=== PATIENT | male | born 1955 | race Caucasian/White ===

== ENCOUNTER 2016-12-12 15:11 | Observation (INO) | payer OTHER ==
[~2016-12-12] VITALS: Ht 175.3 cm; Wt 75.0 kg
[2016-12-12] VITALS (11 sets, daily range): BP systolic 165–212; BP diastolic 86–133; PULSE 55–94; RESP 16–22; TEMP 97.8–98.8; O2SAT 95–100
[~2016-12-12 15:11] MED LIST: CIPR500T4 PO; LISI-363 PO; LISI-587 PO; METO50TA PO
[2016-12-12] MEDS ORDERED: SODIUM CHLORIDE 0.9% FLUSH 10 ML FLUSH IVF PRN (15:30)
[2016-12-12] MEDS ORDERED: ASPIRIN 325 MG TAB PO ONE (15:30)
--- NOTE | 2016-12-12 15:35 | PD ---
HPI Chief Complaint: Chest Pain Time Seen by Provider: 15:19 Travel History International Travel<30 days: No Contact w/Intl Traveler<30days: No Traveled to known affect area: No History of Present Illness HPI This patient reports that he has chest pain. He called 911 and is brought in by paramedics. He is a local homeless alcoholic. He complains of chest pain. Severity is moderate. Duration 2 days. Some left-sided pain but primarily complaining of right sided discomfort. It is nonexertional. He denies any drug use. No alleviating factors. He denies prior cardiac history PFSH Past Medical History Arthritis: Yes Blood Disorders: No Anxiety: Yes Depression: Yes Cancer: No Cardiovascular Problems: Yes (HTN) Diminished Hearing: No Endocrine: No Gastrointestinal Disorders: No GERD: Yes Genitourinary: No Hepatitis: Yes (HEP C) Hypertension: Yes Immune Disorder: No Musculoskeletal: Yes (arthritis) Neurologic: Yes (dizziness) Psychiatric: No Reproductive: No Respiratory: No Immunizations Current: Yes Seizures: Yes Tetanus Vaccination: > 5 Years Influenza Vaccination: No Past Surgical History Body Medical Devices: titanium in body Joint Replacement: Yes (left hip replacement, left arm fusion,) Other Surgery: Yes (TITANIUM HIPS,BACK, ANKLES) Social History Alcohol Use: Yes (STATES OCCASIONALLY) Tobacco Use: Yes (1/2 ppd ) Substance Use: No Allergies-Medications (Allergen,Severity, Reaction): Coded Allergies: Codeine (Verified Allergy, Severe, Swelling, 12/12/16) Keflex (Verified Allergy, Severe, SWELLING/RASH, 12/12/16) *MDRO Multi-Drug Resistant Organism (Verified Adverse Reaction, Unknown, ) ESBL+E.Coli (urine-10/2015) Reported Meds & Prescriptions Reported Meds & Active Scripts Active No Active Prescriptions or Reported Medications Review of Systems General / Constitutional: No: Fever Eyes: No: Visual changes HENT: No: Headaches Cardiovascular: Positive: Chest Pain or Discomfort Respiratory: No: Shortness of Breath Gastrointestinal: No: Abdominal Pain Genitourinary: No: Dysuria Musculoskeletal: No: Pain Skin: No Rash Neurologic: No: Weakness Psychiatric: Positive: Substance Abuse, No: Depression Endocrine: No: Polydipsia Hematologic/Lymphatic: No: Easy Bruising Physical Exam Narrative GENERAL: Disheveled well-developed patient in no apparent distress. SKIN: Focused skin assessment reveals no rash and nodules. Skin is Warm and dry. HEAD: Atraumatic. Normocephalic. EYES: Pupils equal and round. No scleral icterus. No injection or drainage. ENT: No nasal bleeding or discharge. Mucous membranes pink and moist. NECK: Trachea midline. No JVD. CARDIOVASCULAR: Regular rate and rhythm. No murmur appreciated. RESPIRATORY: No accessory muscle use. Clear to auscultation. Breath sounds equal bilaterally. GASTROINTESTINAL: Abdomen soft, non-tender, nondistended. Hepatic and splenic margins not palpable. MUSCULOSKELETAL: No obvious deformities. No clubbing. No cyanosis. No edema. NEUROLOGICAL: Awake and alert. No obvious cranial nerve deficits. Motor grossly within normal limits. Normal speech. PSYCHIATRIC: Appropriate mood and affect; insight and judgment poor. Data Data Last Documented VS Vital Signs Date Time Temp Pulse Resp B/P Pulse Ox O2 Delivery O2 Flow Rate FiO2 12/12/16 16:39 65 20 189/118 95 Room Air 12/12/16 15:20 98.3 Orders Electrocardiogram (12/12/16:) Basic Metabolic Panel (Bmp) (12/12/16 15:) Ckmb (Isoenzyme) Profile (12/12/16 15:28) Complete Blood Count With Diff (12/12/16:) Magnesium (Mg) (12/12/16:) Prothrombin Time / Inr (Pt) (12/12/16 15:28) Act Partial Throm Time (Ptt) (12/12/16 15:28) Troponin I (12/12/16:) Chest, Single Ap (12/12/16:) Ecg Monitoring (12/12/16:) Iv Access Insert/Monitor (12/12/16:) Oximetry (12/12/16:28) Aspirin (Aspirin) (12/12/16 15:30) Sodium Chloride 0.9% Flush (Ns Flush) (12/12/16:) Alcohol (Ethanol) (12/12/16 15:28) CKMB (12/12/16 15:30) CKMB% (12/12/16 15:30) Labs Laboratory Tests Test 12/12/16: White Blood Count 7.2 TH/MM3 Red Blood Count 4.71 MIL/MM3 Hemoglobin 12.4 GM/DL Hematocrit 37.4 % Mean Corpuscular Volume 79.4 FL Mean Corpuscular Hemoglobin 26.3 PG Mean Corpuscular Hemoglobin 33.1 % Concent Red Cell Distribution Width 14.1 % Platelet Count 176 TH/MM3 Mean Platelet Volume 8.6 FL Neutrophils (%) (Auto) 51.3 % Lymphocytes (%) (Auto) 35.8 % Monocytes (%) (Auto) 8.7 % Eosinophils (%) (Auto) 2.6 % Basophils (%) (Auto) 1.6 % Neutrophils # (Auto) 3.7 TH/MM3 Lymphocytes # (Auto) 2.6 TH/MM3 Monocytes # (Auto) 0.6 TH/MM3 Eosinophils # (Auto) 0.2 TH/MM3 Basophils # (Auto) 0.1 TH/MM3 CBC Comment DIFF FINAL Differential Comment Prothrombin Time 11.1 SEC Prothromb Time International 1.0 RATIO Ratio Activated Partial 26.6 SEC Thromboplast Time Sodium Level 141 MEQ/L Potassium Level 4.0 MEQ/L Chloride Level 108 MEQ/L Carbon Dioxide Level 26.3 MEQ/L Anion Gap 7 MEQ/L Blood Urea Nitrogen 23 MG/DL Creatinine 1.94 MG/DL Estimat Glomerular Filtration 35 ML/MIN Rate Random Glucose 80 MG/DL Calcium Level 8.7 MG/DL Magnesium Level 1.8 MG/DL Total Creatine Kinase 135 U/L Creatine Kinase MB 5.6 NG/ML Troponin I 0.05 NG/ML Ethyl Alcohol Level LESS THAN 3 MG/DL MDM Medical Decision Making Medical Screen Exam Complete: Yes Emergency Medical Condition: Yes Medical Record Reviewed: Yes Differential Diagnosis Differential diagnosis includes VT, angina, pericarditis, pleurisy, GERD, anxiety. Narrative Course I have reviewed the patient's electronic medical record. Has been here multiple times for alcohol-related issues and multiple times for malingering IV placed I reviewed the EKG which shows sinus rhythm but no ST elevation I reviewed the chest x-ray which shows nothing emergent Extended cardiac monitoring shows sinus rhythm without ectopy CBC is normal Metabolic profile is normal CK is negative Troponin is negative Coagulation studies are normal Alcohol level is negative I gave him an aspirin Patient has hypertension as a risk factor. He has atypical pain. I have made him a 23 hour observation in the chest pain center. He is not intoxicated. He is calm and cooperative. He is not in withdrawal. Diagnosis Primary Impression: Chest pain in adult Additional Impression: Alcoholism Admitting Information Admitting Physician Requests: Observation Scripts No Active Prescriptions or Reported Meds Foster Haas MD Dec 12, 2016 15:35
[2016-12-12 15:52] LABS: AUTOMATED NEUTROPHIL # 3.7 TH/MM3 (1.8-7.7); BASOPHIL # 0.1 TH/MM3 (0-0.2); BASOPHIL % 1.6 % (0.0-2.0); EOSINOPHIL # 0.2 TH/MM3 (0-0.4); EOSINOPHIL % 2.6 % (0.0-4.0); HEMATOCRIT 37.4 % (39.0-51.0); HEMO FLAGS DIFF FINAL; LYMPH % 35.8 % (9.0-44.0); LYMPHOCYTE # 2.6 TH/MM3 (1.0-4.8); MEAN CELL VOLUME 79.4 FL (80.0-100.0); MEAN CORPUSCULAR HEMOGLOBIN 26.3 PG (27.0-34.0); MEAN CORPUSCULAR HGB CONC 33.1 % (32.0-36.0); MONO % 8.7 % (0.0-8.0); NEUT % 51.3 % (16.0-70.0); PLATELET COUNT 176 TH/MM3 (150-450); RED BLOOD COUNT 4.71 MIL/MM3 (4.50-5.90); RED CELL DISTRIBUTION WIDTH 14.1 % (11.6-17.2); WHITE BLOOD COUNT 7.2 TH/MM3 (4.0-11.0)
[2016-12-12 16:12] LABS: APTT (PATIENT) 26.6 SEC (24.3-30.1); PROTHROMBIN TIME - PATIENT 11.1 SEC (9.8-11.6)
[2016-12-12 16:27] LABS: ANION GAP 7 MEQ/L (5-15); BICARBONATE 26.3 MEQ/L (21.0-32.0); BLOOD UREA NITROGEN 23 MG/DL (7-18); CHLORIDE 108 MEQ/L (98-107); CREATINE KINASE 135 U/L (39-308); GLOMERULAR FILTRATION RATE 35 ML/MIN (>89); MAGNESIUM 1.8 MG/DL (1.5-2.5); SODIUM (NA) 141 MEQ/L (136-145)
--- NOTE | 2016-12-12 16:29 | RADRPT ---
EXAM DATE/TIME: 12/12/2016 15:51 [facility] COMPARISON: CHEST SINGLE AP, July 18, 2015, 0:29. INDICATIONS : Chest pain. MEDICAL HISTORY : Cardiovascular disease. Hypertension. Seizures.Hep C SURGICAL HISTORY : Total knee replacement, left. Craniotomy. Left clavicle. ENCOUNTER: Initial ACUITY: 1 day PAIN SCORE: 3/10 LOCATION: Bilateral chest FINDINGS: A single portable frontal view the chest shows mild cardiomegaly. Lungs are clear. No effusions. A de generative thoracic spine. Orthopedic plate involving left clavicle. CONCLUSION: No acute cardiopulmonary disease. Dayne Calle Jr., MD on December 12, 2016 at 16:26 Board Certified Radiologist. This report was verified electronically.
[2016-12-12 16:40] LABS: CKMB 5.6 NG/ML (0.5-3.6)
[2016-12-12] MEDS ORDERED: cloNIDine HCL 0.1 MG TAB PO PRN (18:15)
[2016-12-12] MEDS ORDERED: ACETAMINOPHEN 500 MG CPLT PO PRN (18:15)
[2016-12-12] MEDS ORDERED: NITROGLYCERIN 0.4 MG SL 25 TABS/BTL SL PRN (18:15)
[2016-12-12] MEDS ORDERED: ONDANSETRON HCL 4 MG/2 ML VIAL IV PRN (18:15)
[2016-12-12] MEDS ORDERED: cloNIDine HCL 0.2 MG TAB PO ONE (18:15)
--- NOTE | 2016-12-12 18:47 | HHI.HP ---
HPI Primary Care Physician Tonny Shook MD Chief Complaint Chest pain History of Present Illness 61-year-old male with known hypertension presents to emergency room for further evaluation chest pain. Onset 2 days ago. Location right anterior chest. Characterized as a sharp pain. Pain has been constant. Reports severe pain today rated 8/10 therefore he called 911. Radiation of pain to his epigastric area occasionally. No associated symptoms of nausea, vomiting, diaphoresis, or shortness of breath. Deep breathing did not make pain better or worse. Endorses movement makes pain worse. No particular movement makes pain better. No known precipitating factors, reports he was tying his shoe when pain began. Relieving factors nitroglycerin given in the emergency room now rates pain at a 2/10. Pain never went completely away. Denies similar pain in the past. Of note, patient was angry throughout interview, difficult to obtain full medical history, and frequently answered "I don't know." Review of Systems General: No fatigue,weakness, fever, chills,, or recent illness. Reports he has been in his general state of health up until 2 days ago. HEENT: Occasional headache. No vision changes or dysphasia CV: As stated above. Currently has right anterior chest pain characterized as sharp without radiation or associated symptoms, rated 2/10. No palpitations, intermittent leg pain, or dizziness RESP: No SOB, cough, hemoptysis GI: No nausea, vomiting, bowel changes, pain, distention, melena, or blood in the stool. : No dysuria, urgency, frequency, or hematuria EXT: No lower leg edema, no paraesthesias MS: No discomfort or change in ROM, ambulates independently, reports history of being in a "full body cast after falling off a roof." NEURO: No difficulty with balance, LOC, motor/sensory deficits PSYCH: No anxiety, depression, or suicidal ideation SKIN: No rashes, no concerning lesions Past Family Social History Allergies: Coded Allergies: Codeine (Verified Allergy, Severe, Swelling, 12/12/16) Keflex (Verified Allergy, Severe, SWELLING/RASH, 12/12/16) *MDRO Multi-Drug Resistant Organism (Verified Adverse Reaction, Unknown, ) ESBL+E.Coli (urine-10/2015) Past Medical History Hypertension, alcoholism, noncompliance Past Surgical History Right hip replacement Reported Medications Active No Active Prescriptions or Reported Medications BP medicationname unknown, states he ran out many months ago. Active Ordered Medications Current Medications Medications (Trade) Dose Ordered Sig/Artemio Route Start Time Stop Time Status Last Admin (NS Flush) 2 ml UNSCH PRN IVF 12/12/16 15:30 (NS Flush) 2 ml BID IV FLUSH 12/12/16 21:00 UNV (Tylenol) 500 mg Q4H PRN PO 12/12/16 18:15 UNV (Zofran Inj) 4 mg Q6H PRN IV 12/12/16 18:15 UNV (Nitrostat Sl) 0.4 mg Q5M PRN SL 12/12/16 18:15 UNV (Aspirin) 325 mg DAILY PO 12/13/16 09:00 UNV (Norvasc) 5 mg DAILY PO 12/12/16 18:30 UNV (Catapres) 0.1 mg Q6H PRN PO 12/12/16 18:15 UNV Family History Noncontributory for early as a cardiovascular disease. Social History No known diabetes, coronary artery disease, or hyperlipidemia. Endorses hypertension. Current smoker one quarter pack/daily. Denies any recreational drug use. Reports a few beers occasionally/weekly. Upon admission to hospital he was holding a half full Wiliam Duncan bottle. When questioned patient reports not drinking that often only carries it around. Homeless. Past cardiac testing Reports never having testing. Physical Exam Vital Signs Vital Signs Date Time Temp Pulse Resp B/P Pulse Ox O2 Delivery O2 Flow Rate FiO2 12/12/16 18:17 98 21 12/12/16 16:39 65 20 189/118 95 Room Air 12/12/16 15:20 98.3 82 20 208/122 97 Physical Exam GENERAL: Alert WD, NAD, thin, disheveled, dirty, male who appears older than stated age HEAD: NC, AT NECK: Supple, no masses, trachea midline, no JVD, carotid bruits L>R CV: RRR, systolic 2/6 murmur. no rub or gallop, no S3-S4. RESP: Diminished lungs throughout bilateral, no crackles, wheeze, rhonchi, symmetrical chest rise, nonlabored, able to speak in full sentences, prolonged expiratory phase ABD: Soft, NT, ND, no masses, positive bowel tones, flat EXT: Pulses +14, no dependent edema, thick dirty fingernails and toenails MS: Normal tone 4 extremities, no obvious deformities, full range of motion, right anterior chest wall tender upon palpation NEURO: CN II through CN XII grossly intact, motor strength 5/5 PSYCH: A+O 3, agitated, hostile, rude, appropriate speech, appropriate insight and judgment SKIN: Normal turgor, normal texture, no lesions, no rashes, tattoo, solar damage , dirty Laboratory Laboratory Tests Test 12/12/16 15:30 White Blood Count 7.2 Red Blood Count 4.71 Hemoglobin 12.4 Hematocrit 37.4 Mean Corpuscular Volume 79.4 Mean Corpuscular Hemoglobin 26.3 Mean Corpuscular Hemoglobin 33.1 Concent Red Cell Distribution Width 14.1 Platelet Count 176 Mean Platelet Volume 8.6 Neutrophils (%) (Auto) 51.3 Lymphocytes (%) (Auto) 35.8 Monocytes (%) (Auto) 8.7 Eosinophils (%) (Auto) 2.6 Basophils (%) (Auto) 1.6 Neutrophils # (Auto) 3.7 Lymphocytes # (Auto) 2.6 Monocytes # (Auto) 0.6 Eosinophils # (Auto) 0.2 Basophils # (Auto) 0.1 CBC Comment DIFF FINAL Differential Comment Prothrombin Time 11.1 Prothromb Time International 1.0 Ratio Activated Partial 26.6 Thromboplast Time Sodium Level 141 Potassium Level 4.0 Chloride Level 108 Carbon Dioxide Level 26.3 Anion Gap 7 Blood Urea Nitrogen 23 Creatinine 1.94 Estimat Glomerular Filtration 35 Rate Random Glucose 80 Calcium Level 8.7 Magnesium Level 1.8 Total Creatine Kinase 135 Creatine Kinase MB 5.6 Troponin I 0.05 Ethyl Alcohol Level LESS THAN 3 Result Diagram: 12/12/16 1530 12/12/16 1530 Imaging Last Impressions Chest X-Ray 12/12/16 1528 Signed Impressions: Service Date/Time: November 15:51 - CONCLUSION: No acute cardiopulmonary disease. Dayne Calle Jr., MD Course EKG Normal sinus rhythm, no ST or T-segment changes Assessment and Plan Assessment and Plan #1 Atypical chest painadmitted to chest pain center. Rule out with 3 sets of EKGs, cardiac enzymes, and monitored overnight. Will be seen and evaluated by Dr. Thomas Farmer. Discussed with patient most likely will complete cardiac stress testing in a.m. Patient is agreeable to plan of care. #2 Hypertensionamlodipine 5 mg daily first dose now. Clonidine 0.1 mg every 6 hours when necessary for systolic greater than 180 and diastolic greater than 110. Encouraged him to keep all follow-up appointments with PCP and take medication as prescribed. #3 Tobacco usestrongly encouraged and stressed the importance of tobacco sensation. Discussed and counseled patient to quit smoking. #4 Alcohol useno signs of DTs, alcohol level negative. Encouraged him to quit drinking alcohol. #5 Renal insufficiencyafter reviewing records appears stable, creatinine as high as 4.21 in the past. Follow-up with PCP as previously instructed. Nicole Krishnamurthy Dec 12, 2016 18:47
[2016-12-12] MEDS: amLODIPine BESYLATE 5 MG TAB PO SCH (18:56)
[2016-12-12 19:05] LABS: CREATINE KINASE 136 U/L (39-308)
[2016-12-12 19:29] LABS: CKMB 4.8 NG/ML (0.5-3.6)
[2016-12-12] MEDS: SODIUM CHLORIDE 0.9% FLUSH 10 ML FLUSH IV FLUSH SCH (21:00)
[2016-12-13 00:34] VITALS: PULSE 64
[2016-12-13 04:03] VITALS: PULSE 52
[2016-12-13 04:08] VITALS: BP 162/91; PULSE 77; RESP 18; TEMP 98.1; O2SAT 97
[2016-12-13 07:45] VITALS: BP 179/105; PULSE 65; RESP 18; TEMP 97.6; O2SAT 99
[2016-12-13] MEDS: SODIUM CHLORIDE 0.9% FLUSH 10 ML FLUSH IV FLUSH SCH (07:57)
[2016-12-13] MEDS: amLODIPine BESYLATE 5 MG TAB PO SCH (07:57)
[2016-12-13] MEDS ORDERED: RESP: ALBUTEROL 2.5 MG/IPRATROPIUM 0.5 MG NEB (PRN) INH (08:15)
[2016-12-13 08:19] VITALS: PULSE 48
[2016-12-13] MEDS ORDERED: ASPIRIN 325 MG TAB PO SCH (09:00)
[2016-12-13] MEDS ORDERED: REGADENOSON INJ 0.4 MG/5 ML SYR ONE (10:59)
--- NOTE | 2016-12-13 13:35 | RADRPT ---
EXAM DATE/TIME: 12/13/2016 10:33 [facility] COMPARISON: No previous studies available for comparison. INDICATIONS : Right sided chest pain for two days. Angina. DOSE: 26 mCi Tc99m Myoview at stress. 8.7 mCi Tc99m Myoview at rest. 0.4 mg Lexiscan STRESS SYMPTOMS: Dizziness and headache. EJECTION FRACTION: 65% MEDICAL HISTORY : Hypertension. SURGICAL HISTORY : Right hip replacement. ENCOUNTER: Initial ACUITY: 2 days PAIN SCALE: 8/10 LOCATION: Right chest TECHNIQUE: The patient underwent pharmacologic stress with infusion of prescribed dose. Continuous ECG tracing was monitored during stress. Gated SPECT imaging was performed after stress and conventional SPECT i maging was performed at rest. The examination was performed on a SPECT/CT scanner, both attenuation and non-corrected datasets were reviewed. FINDINGS: DISTRIBUTION: The maximum perfused segment at stress is in the lateral wall. PERFUSION STUDY: The pattern of perfusion at stress is within normal limits. GATED STUDY: There is intact wall motion and thickening without hypokinetic or dyskinetic segments. CONCLUSION: No reversible defects observed to suggest acute ischemia. RISK CATEGORY: Low Dayne Calle Jr., MD on December 13, 2016 at 13:31 Board Certified Radiologist. This report was verified electronically.
[2016-12-13] MEDS ORDERED: AMLO5 PO (13:39)
--- NOTE | 2016-12-13 13:40 | HHI.DCPOC ---
Discharge Care Plan Diagnosis: (1) Chest pain (2) HTN (hypertension) (3) Tobacco abuse Goals to Promote Your Health * To prevent worsening of your condition and complications * To maintain your health at the optimal level Directions to Meet Your Goals Take your medications as prescribed Follow your dietary instruction Follow activity as directed Keep your appointments as scheduled Take your immunizations and boosters as scheduled If your symptoms worsen call your PCP, if no PCP go to Urgent Care Center or Emergency Room Smoking is Dangerous to Your Health. Avoid second hand smoke Call the 24-hour hour crisis hotline for domestic abuse at Scotty Florentino Dec 13, 2016 13:39
--- NOTE | 2016-12-13 15:36 | EKG ---
Date Performed: 12/12/2016 Time Performed: 22:16:16 PTAGE: 61 years EKG: SINUS BRADYCARDIA LEFT VENTRICULAR HYPERTROPHY AND ST-T CHANGE ABNORMAL ECG PREVIOUS TRACING : 12/12/2016 18.16 Since previous tracing, no significant change noted DOCTOR: Thomas Farmer Interpretating Date/Time 12/13/2016 15:36:19
--- NOTE | 2016-12-13 15:37 | EKG ---
Date Performed: 12/12/2016 Time Performed: 15:24:10 PTAGE: 61 years EKG: Sinus rhythm WITH FREQUENT SUPRAVENTRICULAR PREMATURE COMPLEXES VOLTAGE CRITERIA FOR LVH ABNORMAL ECG PREVIOUS TRACING : 07/17/2015 23.42 Since previous tracing, no significant change noted DOCTOR: Thomas Farmer Interpretating Date/Time 12/13/2016 15:37:20
--- NOTE | 2016-12-13 15:37 | EKG ---
Date Performed: 12/12/2016 Time Performed: 18:16:07 PTAGE: 61 years EKG: Sinus rhythm VOLTAGE CRITERIA FOR LVH ABNORMAL ECG PREVIOUS TRACING : 12/12/2016 15.24 Since previous tracing, no significant change noted DOCTOR: Thomas Farmer Interpretating Date/Time 12/13/2016 15:36:57
--- NOTE | 2016-12-13 15:43 | TR ---
Date Performed: 12/13/2016 Time Performed: 11:13:25 DOCTOR: Thomas Farmer DRUG LIST: CLINICAL HISTORY: REASON FOR TEST: CHEST PAIN REASON FOR ENDING: OBSERVATION: CONCLUSION: Lexiscan stress test was performed under standard four minute protocol. Radionuclid e was injected one minute prior to ending the test. No electrocardiographic abormalities were present to suggest ischemia. Nuclear imaging and interpretation are pending. COMMENTS:
== END 2016-12-13 15:05 | disposition home or self-care (01) ==
LOC: NEPC 15:11 → NEDA 17:52 → NEPFCDU 20:29
PROVIDERS: ADMIT Internal Medicine Cardiovascular Disease; ATTEND Internal Medicine Cardiovascular Disease
DX: R07.89 Other chest pain (principal); R42 Dizziness and giddiness; R51 Headache; R94.31 Abnormal electrocardiogram [ECG] [EKG]; R00.1 Bradycardia, unspecified; N28.9 Disorder of kidney and ureter, unspecified; I20.9 Angina pectoris, unspecified; I11.9 Hypertensive heart disease without heart failure; I51.7 Cardiomegaly; K21.9 Gastro-esophageal reflux disease without esophagitis; B19.20 Unspecified viral hepatitis C without hepatic coma; F41.9 Anxiety disorder, unspecified; F32.9 Major depressive disorder, single episode, unspecified; M19.90 Unspecified osteoarthritis, unspecified site; F17.200 Nicotine dependence, unspecified, uncomplicated; F10.20 Alcohol dependence, uncomplicated; Z96.652 Presence of left artificial knee joint; Z96.641 Presence of right artificial hip joint; Z59.0 Homelessness; Z91.19 Patient's noncompliance with other medical treatment and regimen
CPT/HCPCS: 71010; 78452; 80048; 80307; 82550; 82552; 83735; 84484; 85025; 85610; 85730; 93005; 93017; 99285; A9502; G0378; J2785

== ENCOUNTER 2017-02-05 20:42 | Emergency (ER) | payer OTHER ==
[~2017-02-05] VITALS: Ht 175.3 cm; Wt 78.0 kg
[~2017-02-05 20:42] MED LIST changes: +AMLO5 PO; -CIPR500T4 PO; -LISI-363 PO; -LISI-587 PO; -METO50TA PO
[2017-02-05 20:50] VITALS: BP 203/103; PULSE 110; RESP 20; TEMP 98.7; O2SAT 95
[2017-02-05 21:04] VITALS: BP 173/106; PULSE 101; O2SAT 96
[2017-02-05 21:10] VITALS: BP 173/106
[2017-02-05 22:12] VITALS: BP 218/124; PULSE 93; RESP 20; O2SAT 99
--- NOTE | 2017-02-05 22:21 | PD ---
HPI Chief Complaint: Alcohol/Drug Intoxication Time Seen by Provider: 22:14 Travel History International Travel<30 days: No Contact w/Intl Traveler<30days: No Traveled to known affect area: No History of Present Illness HPI 61-year-old male brought to the emergency department under a Edouard act for psychiatric evaluation. Patient has been drinking alcohol and is feeling depressed. He has not been taking his antidepressant medication. He has been having thoughts of suicide. Denies any current plan. He has no other symptoms to report. PFSH Past Medical History Arthritis: Yes Blood Disorders: No Anxiety: Yes Depression: Yes Cancer: No Cardiovascular Problems: Yes (HTN) Diabetes: No Patient Takes Glucophage: No Diminished Hearing: No Endocrine: No Gastrointestinal Disorders: No GERD: Yes Genitourinary: No Hepatitis: Yes (HEP C) Hypertension: Yes Immune Disorder: No Musculoskeletal: Yes (arthritis) Neurologic: Yes (dizziness) Psychiatric: No Reproductive: No Respiratory: No Immunizations Current: Yes Seizures: Yes Tetanus Vaccination: > 5 Years Influenza Vaccination: No Past Surgical History Body Medical Devices: titanium in body Joint Replacement: Yes (left hip replacement, left arm fusion,) Other Surgery: Yes (TITANIUM HIPS,BACK, ANKLES) Social History Alcohol Use: Yes (DAILY) Tobacco Use: Yes (1/2 ppd ) Substance Use: No Allergies-Medications (Allergen,Severity, Reaction): Coded Allergies: cephalexin (Unverified Allergy, Severe, SWELLING/RASH, 02/05/17) codeine (Unverified Allergy, Severe, Swelling, 02/05/17) *MDRO Multi-Drug Resistant Organism (Verified Adverse Reaction, Unknown, ) ESBL+E.Coli (urine-10/2015) Reported Meds & Prescriptions Reported Meds & Active Scripts Active No Active Prescriptions or Reported Medications Review of Systems Except as stated in HPI: all other systems reviewed are Neg Physical Exam Narrative GENERAL: Well-nourished, unkempt male patient, in no acute distress. SKIN: Focused skin assessment warm/dry. HEAD: Atraumatic. Normocephalic. EYES: Pupils equal and round. No scleral icterus. No injection or drainage. ENT: No nasal bleeding or discharge. Mucous membranes pink and moist. NECK: Trachea midline. No JVD. CARDIOVASCULAR: Tachycardic rate and rhythm. No murmur appreciated. RESPIRATORY: No accessory muscle use. Clear to auscultation. Breath sounds equal bilaterally. GASTROINTESTINAL: Abdomen soft, non-tender, nondistended. Hepatic and splenic margins not palpable. MUSCULOSKELETAL: No obvious deformities. No clubbing. No cyanosis. No edema. NEUROLOGICAL: Awake and alert. No obvious cranial nerve deficits. Motor grossly within normal limits. Normal speech. Data Data Last Documented VS Vital Signs Date Time Temp Pulse Resp B/P (MAP) Pulse Ox O2 Delivery O2 Flow Rate FiO2 02/06/17 03:16 88 18 205/98 (133) 99 Room Air 02/05/17 20:50 98.7 Orders Orders Complete Blood Count With Diff (02/05/17 21:17) Basic Metabolic Panel (Bmp) (02/05/17 21:17) Psych Screen (02/05/17 21:17) Drug Screen, Random Urine (02/05/17 21:17) Alcohol (Ethanol) (02/05/17 21:17) Clonidine (Catapres) (02/05/17 22:30) Labs Laboratory Tests Test 02/05/17 03:15 02/05/17 22:00 Urine Opiates Screen NEG Urine Barbiturates Screen NEG Urine Amphetamines Screen NEG Urine Benzodiazepines Screen NEG Urine Cocaine Screen NEG Urine Cannabinoids Screen NEG White Blood Count 9.2 TH/MM3 Red Blood Count 4.60 MIL/MM3 Hemoglobin 12.5 GM/DL Hematocrit 37.0 % Mean Corpuscular Volume 80.5 FL Mean Corpuscular Hemoglobin 27.2 PG Mean Corpuscular Hemoglobin Concent 33.8 % Red Cell Distribution Width 13.2 % Platelet Count 213 TH/MM3 Mean Platelet Volume 8.2 FL Neutrophils (%) (Auto) 60.3 % Lymphocytes (%) (Auto) 29.4 % Monocytes (%) (Auto) 6.7 % Eosinophils (%) (Auto) 2.3 % Basophils (%) (Auto) 1.3 % Neutrophils # (Auto) 5.5 TH/MM3 Lymphocytes # (Auto) 2.7 TH/MM3 Monocytes # (Auto) 0.6 TH/MM3 Eosinophils # (Auto) 0.2 TH/MM3 Basophils # (Auto) 0.1 TH/MM3 CBC Comment DIFF FINAL Differential Comment Blood Urea Nitrogen 21 MG/DL Creatinine 2.13 MG/DL Random Glucose 96 MG/DL Calcium Level 8.6 MG/DL Sodium Level 144 MEQ/L Potassium Level 3.6 MEQ/L Chloride Level 110 MEQ/L Carbon Dioxide Level 29.8 MEQ/L Anion Gap 4 MEQ/L Estimat Glomerular Filtration Rate 32 ML/MIN Ethyl Alcohol Level 121 MG/DL MDM Medical Decision Making Medical Screen Exam Complete: Yes Emergency Medical Condition: Yes Medical Record Reviewed: Yes Differential Diagnosis Mood disorder versus personality disorder versus adjustment reaction disorder versus alcohol withdrawal versus polysubstance abuse Narrative Course 61-year-old male presents to emergency department for evaluation under Edouard act. Patient does report suicidal thoughts with no active plan. He is hypertensive and has a history of this. He is not taking his medication for this. Patient does appear without distress. Lab work is without acute concern. Patient's creatinine is 2.13 with a BUN of 21. This is slightly increased from prior. EtOH is 121. Toxicology is negative. I had discussed the patient might any physician. He is medically cleared to undergo psychiatric screening for further evaluation and disposition. Mental health screening discussed with the patient. Psychiatric screen ordered. Diagnosis Primary Impression: Adjustment reaction Qualified Codes: F43.21 - Adjustment disorder with depressed mood Additional Impression: HTN (hypertension) Qualified Codes: I10 - Essential (primary) hypertension Scripts No Active Prescriptions or Reported Meds Condition: Stable Rocio Lisa Feb 05, 2017 22:21
[2017-02-05] MEDS ORDERED: cloNIDine HCL 0.1 MG TAB PO ONE (22:30)
[2017-02-05 22:43] LABS: BICARBONATE 29.8 MEQ/L (21.0-32.0); POTASSIUM 3.6 MEQ/L (3.5-5.1)
[2017-02-05 22:52] LABS: AUTOMATED NEUTROPHIL # 5.5 TH/MM3 (1.8-7.7); BASOPHIL # 0.1 TH/MM3 (0-0.2); BASOPHIL % 1.3 % (0.0-2.0); EOSINOPHIL # 0.2 TH/MM3 (0-0.4); EOSINOPHIL % 2.3 % (0.0-4.0); HEMO FLAGS DIFF FINAL; LYMPH % 29.4 % (9.0-44.0); LYMPHOCYTE # 2.7 TH/MM3 (1.0-4.8); MEAN CELL VOLUME 80.5 FL (80.0-100.0); MEAN CORPUSCULAR HEMOGLOBIN 27.2 PG (27.0-34.0); MEAN CORPUSCULAR HGB CONC 33.8 % (32.0-36.0); MONO % 6.7 % (0.0-8.0); NEUT % 60.3 % (16.0-70.0); PLATELET COUNT 213 TH/MM3 (150-450); RED CELL DISTRIBUTION WIDTH 13.2 % (11.6-17.2); WHITE BLOOD COUNT 9.2 TH/MM3 (4.0-11.0)
[2017-02-06 03:16] VITALS: BP 205/98; PULSE 88; RESP 18; O2SAT 99
[2017-02-06 06:48] VITALS: BP 126/86; PULSE 74; RESP 18; O2SAT 99
[2017-02-06 08:00] VITALS: BP 173/90; PULSE 77; RESP 17
[2017-02-06] MEDS ORDERED: amLODIPine BESYLATE 5 MG TAB PO ONE (09:45)
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
--- NOTE | 2017-02-06 12:52 | PD ---
Data Data Last Documented VS Vital Signs Date Time Temp Pulse Resp B/P (MAP) Pulse Ox O2 Delivery O2 Flow Rate FiO2 02/06/17 08:00 77 17 173/90 (117) 02/06/17 08:00 99 Room Air 02/05/17 20:50 98.7 Orders Orders Complete Blood Count With Diff (02/05/17 21:17) Basic Metabolic Panel (Bmp) (02/05/17 21:17) Psych Screen (02/05/17 21:17) Drug Screen, Random Urine (02/05/17 21:17) Alcohol (Ethanol) (02/05/17 21:17) Clonidine (Catapres) (02/05/17 22:30) Diet Regular Basic (02/06/17 Breakfast) Amlodipine (Norvasc) (02/06/17 09:45) Labs Laboratory Tests Test 02/05/17 03:15 02/05/17 22:00 Urine Opiates Screen NEG Urine Barbiturates Screen NEG Urine Amphetamines Screen NEG Urine Benzodiazepines Screen NEG Urine Cocaine Screen NEG Urine Cannabinoids Screen NEG White Blood Count 9.2 TH/MM3 Red Blood Count 4.60 MIL/MM3 Hemoglobin 12.5 GM/DL Hematocrit 37.0 % Mean Corpuscular Volume 80.5 FL Mean Corpuscular Hemoglobin 27.2 PG Mean Corpuscular Hemoglobin Concent 33.8 % Red Cell Distribution Width 13.2 % Platelet Count 213 TH/MM3 Mean Platelet Volume 8.2 FL Neutrophils (%) (Auto) 60.3 % Lymphocytes (%) (Auto) 29.4 % Monocytes (%) (Auto) 6.7 % Eosinophils (%) (Auto) 2.3 % Basophils (%) (Auto) 1.3 % Neutrophils # (Auto) 5.5 TH/MM3 Lymphocytes # (Auto) 2.7 TH/MM3 Monocytes # (Auto) 0.6 TH/MM3 Eosinophils # (Auto) 0.2 TH/MM3 Basophils # (Auto) 0.1 TH/MM3 CBC Comment DIFF FINAL Differential Comment Blood Urea Nitrogen 21 MG/DL Creatinine 2.13 MG/DL Random Glucose 96 MG/DL Calcium Level 8.6 MG/DL Sodium Level 144 MEQ/L Potassium Level 3.6 MEQ/L Chloride Level 110 MEQ/L Carbon Dioxide Level 29.8 MEQ/L Anion Gap 4 MEQ/L Estimat Glomerular Filtration Rate 32 ML/MIN Ethyl Alcohol Level 121 MG/DL MDM Supervised Visit with SEVEN: No Diagnosis Primary Impression: Adjustment disorder with mixed disturbance of emotions and conduct Additional Impression: Alcohol abuse Patient Instructions: General Instructions Additional Instruction: Follow up with Bonita Borja in regards to psychiatric or substance related issues at: [address] [place], [place] [id number] Med/Other Pt SpecificInfo: No Change to Meds Scripts No Active Prescriptions or Reported Meds Disposition: 01 DISCHARGE HOME Condition: Stable Ale Alvarez MD Feb 06, 2017 12:52
== END 2017-02-06 14:16 | disposition home or self-care (01) ==
LOC: NEPD 20:42 → NEPJ 02-06 14:16
DX: F43.25 Adjustment disorder with mixed disturbance of emotions and conduct (principal); F10.10 Alcohol abuse, uncomplicated; I10 Essential (primary) hypertension; K21.9 Gastro-esophageal reflux disease without esophagitis; M19.90 Unspecified osteoarthritis, unspecified site; F41.9 Anxiety disorder, unspecified; R56.9 Unspecified convulsions; Z86.19 Personal history of other infectious and parasitic diseases; Z59.0 Homelessness
CPT/HCPCS: 80048; 80307; 85025; 99284

== ENCOUNTER 2017-02-06 22:01 | Emergency (ER) | payer OTHER ==
[~2017-02-06] VITALS: Ht 177.8 cm; Wt 77.0 kg
[2017-02-06 22:14] VITALS: BP 207/116; PULSE 100; RESP 16; TEMP 99.5; O2SAT 97
[2017-02-06] MEDS ORDERED: ACETAMINOPHEN 325 MG TAB PO ONE (23:45)
--- NOTE | 2017-02-06 23:45 | PD ---
HPI Chief Complaint: Hip Injury Time Seen by Provider: 23:36 Travel History International Travel<30 days: No Contact w/Intl Traveler<30days: No Traveled to known affect area: No History of Present Illness HPI Patient is a 61-year-old homeless male presents emergency department for left hip pain after a fall. Patient states she's had the hip replaced in the past. States he was walking down the sidewalk and had a trip and fall event landing on his left hip. He states he thinks he hit his head as well but denies any loss consciousness. Denies any nausea vomiting focalized weakness numbness tingling in his hands or feet. He has been ambulatory since the event and has been walking since arrival here. He has no other complaints at this time. Denies any chest pain short of breath abdominal pain nausea vomiting diarrhea. PFSH Past Medical History Arthritis: Yes Blood Disorders: No Anxiety: Yes Depression: Yes Cancer: No Cardiovascular Problems: Yes (HTN) Diabetes: No Diminished Hearing: No Endocrine: No Gastrointestinal Disorders: No GERD: Yes Genitourinary: No Hepatitis: Yes (HEP C) Hypertension: Yes Immune Disorder: No Musculoskeletal: Yes (arthritis) Neurologic: Yes (dizziness) Psychiatric: No Reproductive: No Respiratory: No Immunizations Current: Yes Seizures: Yes Influenza Vaccination: No Past Surgical History Body Medical Devices: titanium in body Joint Replacement: Yes (left hip replacement, left arm fusion,) Other Surgery: Yes (TITANIUM HIPS,BACK, ANKLES) Social History Alcohol Use: Yes (DAILY) Tobacco Use: Yes (1/2 ppd ) Substance Use: No Allergies-Medications (Allergen,Severity, Reaction): Coded Allergies: cephalexin (Unverified Allergy, Severe, SWELLING/RASH, 02/06/17) codeine (Unverified Allergy, Severe, Swelling, 02/06/17) *MDRO Multi-Drug Resistant Organism (Verified Adverse Reaction, Unknown, ) ESBL+E.Coli (urine-10/2015) Reported Meds & Prescriptions Reported Meds & Active Scripts Active No Active Prescriptions or Reported Medications Review of Systems Except as stated in HPI: all other systems reviewed are Neg Physical Exam Narrative GENERAL: Well-nourished, well-developed patient. SKIN: Focused skin assessment warm/dry. HEAD: Normocephalic. Atraumatic, no bullock signs no raccoons eyes. EYES: No scleral icterus. No injection or drainage. NECK: Supple, trachea midline. No JVD or lymphadenopathy. CARDIOVASCULAR: Regular rate and rhythm without murmurs, gallops, or rubs. RESPIRATORY: Breath sounds equal bilaterally. No accessory muscle use. GASTROINTESTINAL: Abdomen soft, non-tender, nondistended. MUSCULOSKELETAL: There is no tenderness of the left hip, no tenderness and internal or external rotation abduction or abduction. Left knee is nontender, left ankle nontender. Full nontender range of motion of all 4 extremities. Pulses motor and sensory intact in all [address] or L-spine tenderness. BACK: Nontender without obvious deformity. No CVA tenderness. Data Data Last Documented VS Vital Signs Date Time Temp Pulse Resp B/P (MAP) Pulse Ox O2 Delivery O2 Flow Rate FiO2 02/06/17 23:52 02/06/17 22:14 99.5 100 16 97 Room Air Orders Orders Acetaminophen (Tylenol) (02/06/17 23:45) MDM Medical Decision Making Medical Screen Exam Complete: Yes Emergency Medical Condition: Yes Differential Diagnosis Fall, contusion, denies syncopal episode, poor social circumstance. Narrative Course Patient roomed in emergency department, she no indication for imaging of his extremities. His head is cleared by [facility] CT head rolls and his neck is cleared by Nexus criteria. Discussed symptomatic management returned ED criteria. Stable for discharge Diagnosis Primary Impression: Hip pain Scripts No Active Prescriptions or Reported Meds Disposition: 01 DISCHARGE HOME Condition: Stable Leonardo Morton MD Feb 06, 2017 23:45
== END 2017-02-07 00:02 | disposition home or self-care (01) ==
LOC: NEPD 22:01
DX: M25.552 Pain in left hip (principal); F17.200 Nicotine dependence, unspecified, uncomplicated
CPT/HCPCS: 99282

== ENCOUNTER 2017-02-18 14:43 | Emergency (ER) | payer OTHER ==
[~2017-02-18] VITALS: Ht 167.6 cm; Wt 82.0 kg
[2017-02-18 14:49] VITALS: BP 203/100; PULSE 96; RESP 18; TEMP 98; O2SAT 99
--- NOTE | 2017-02-18 14:53 | PD ---
HPI Chief Complaint: skin wounds Time Seen by Provider: 14:58 Travel History International Travel<30 days: No Contact w/Intl Traveler<30days: No Traveled to known affect area: No History of Present Illness HPI This is a 61-year-old male who presents via EMS for evaluation. The patient is homeless, he reports that he developed some wounds on his years and hands one week ago. He scratched and open up the wounds now has developed increased pain and scabbing lesions to the wounds. No fevers or chills. Symptoms are mild, aggravated by palpation. Noted to be hypertensive via EMS which appears to be chronic based on his previous visits to this facility. No other complaints. Last tetanus vaccination unknown. PFSH Past Medical History Arthritis: Yes Blood Disorders: No Anxiety: Yes Depression: Yes Cancer: No Cardiovascular Problems: Yes (HTN) Diabetes: No Diminished Hearing: No Endocrine: No Gastrointestinal Disorders: No GERD: Yes Genitourinary: No Hepatitis: Yes (HEP C) Hypertension: Yes Immune Disorder: No Musculoskeletal: Yes (arthritis) Neurologic: Yes (dizziness) Psychiatric: No Reproductive: No Respiratory: No Immunizations Current: Yes Seizures: Yes Past Surgical History Body Medical Devices: titanium in body Joint Replacement: Yes (left hip replacement, left arm fusion,) Other Surgery: Yes (TITANIUM HIPS,BACK, ANKLES) Social History Alcohol Use: Yes (DAILY) Tobacco Use: Yes (1/2 ppd ) Substance Use: No Allergies-Medications (Allergen,Severity, Reaction): Coded Allergies: cephalexin (Verified Allergy, Severe, SWELLING/RASH, 02/18/17) codeine (Verified Allergy, Severe, Swelling, 02/18/17) *MDRO Multi-Drug Resistant Organism (Verified Adverse Reaction, Unknown, ) ESBL+E.Coli (urine-10/2015) Reported Meds & Prescriptions Reported Meds & Active Scripts Active Bactroban Topical (Mupirocin) 22 Gm Cream 1 Applic TOPICAL TID 10 Days Clindamycin (Clindamycin HCl) 300 Mg Cap 300 Mg PO Q6H 10 Days Amlodipine (Amlodipine Besylate) 5 Mg Tab 5 Mg PO DAILY Review of Systems Except as stated in HPI: all other systems reviewed are Neg Physical Exam Narrative GENERAL: Disheveled-appearing male who is in no acute distress. SKIN: Warm and dry. The patient has scabs, impetigo noted to the left earlobe, dorsal hands bilaterally. There is an abrasion to the right earlobe as well. Minimal cellulitic changes. HEAD: Atraumatic. Normocephalic. EYES: Pupils equal and round. No scleral icterus. No injection or drainage. ENT: No nasal bleeding or discharge. Mucous membranes pink and moist. NECK: Trachea midline. No JVD. CARDIOVASCULAR: Regular rate and rhythm. No murmur appreciated. RESPIRATORY: No accessory muscle use. Clear to auscultation. Breath sounds equal bilaterally. GASTROINTESTINAL: Abdomen soft, non-tender, nondistended. Hepatic and splenic margins not palpable. MUSCULOSKELETAL: No obvious deformities. No edema. NEUROLOGICAL: Awake and alert. No obvious cranial nerve deficits. Motor grossly within normal limits. Normal speech. PSYCHIATRIC: Appropriate mood and affect; insight and judgment normal. Data Data Last Documented VS Vital Signs Date Time Temp Pulse Resp B/P (MAP) Pulse Ox O2 Delivery O2 Flow Rate FiO2 02/18/17 14:56 96 17 02/18/17 14:49 98.0 203/100 (134) 99 Orders Orders Clonidine (Catapres) (02/18/17 15:00) Clindamycin Inj (Cleocin Inj) (02/18/17 15:00) Wound Care (02/18/17 14:57) Tetanus/Diphtheria Tox Adult (Tetanus/Di (02/18/17 15:15) Acetaminophen (Tylenol) (02/18/17 15:30) Wound Culture And Gram Stain (02/18/17 15:28) MDM Medical Decision Making Medical Screen Exam Complete: Yes Emergency Medical Condition: Yes Medical Record Reviewed: Yes Differential Diagnosis Impetigo, abrasion, infected bug bite, cellulitis, osteomyelitis, necrotizing fasciitis Narrative Course The patient appears to have developed impetigo, scabs, likely secondary to bug bites, on his ears and hands. A wound culture was performed on one of the wounds on the right hand. The patient was noted to be hypertensive. Based on chart review he is chronically hypertensive with a systolic blood pressure in the 200 range typically when he presents here. He has not been on any antihypertensive medication in several months. The patient be given a dose of clonidine here and likely would benefit from amlodipine as an outpatient. The plan therefore is, upon discharge, to discharge him with clindamycin, Bactroban cream, amlodipine. He reports that he will be able to get all of his medications with no difficulty at the pharmacy. He is encouraged to establish care with a primary care physician. Diagnosis Primary Impression: Impetigo Additional Impression: Hypertension Qualified Codes: I10 - Essential (primary) hypertension [facility]errals: [facility] Additional Instructions: Medication as prescribed. Wash the wounds twice daily with soap and water and apply antibiotic cream. Return for any new or worsening symptoms. Med/Other Pt SpecificInfo: Prescription(s) given, Wound Care Scripts Mupirocin Topical (Bactroban Topical) 22 Gm Cream 1 APPLIC TOPICAL TID for Mgmt Bacterial Infection for 10 Days, #1 TUBE 0 Refills Prov: Sagar Avila MD 02/18/17 Clindamycin (Clindamycin) 300 Mg Cap 300 MG PO Q6H for Infection for 10 Days, #40 CAP 0 Refills Prov: Sagar Avila MD 02/18/17 Amlodipine (Amlodipine) 5 Mg Tab 5 MG PO DAILY for Blood Pressure Management, #30 TAB 0 Refills Prov: Sagar Avila MD 02/18/17 Disposition: 01 DISCHARGE HOME Condition: Stable Nirav Buckley Feb 18, 2017 14:53
[2017-02-18] MEDS ORDERED: cloNIDine HCL 0.2 MG TAB PO ONE (15:00)
[2017-02-18] MEDS ORDERED: MUPI2%T TOPICAL (15:00)
[2017-02-18] MEDS ORDERED: CLIN1CAP6 PO (15:00)
[2017-02-18] MEDS ORDERED: AMLO5TAB2 PO (15:00)
[2017-02-18] MEDS ORDERED: CLINDAMYCIN INJ 600 MG in SODIUM CHLORIDE 0.9% INJ 100 ML IV ONE (15:00)
[2017-02-18] MEDS ORDERED: TETANUS/DIPHTHERIA TOXOID ADULT 0.5 ML VIAL IM ONE (15:15)
[2017-02-18] MEDS ORDERED: ACETAMINOPHEN 325 MG TAB PO ONE (15:30)
[2017-02-18 16:40] VITALS: RESP 17
[2017-02-18 16:44] VITALS: BP 170/86; TEMP 97.8
== END 2017-02-18 16:44 | disposition home or self-care (01) ==
LOC: NEPE 14:43
DX: L01.00 Impetigo, unspecified (principal); A49.02 Methicillin resistant Staphylococcus aureus infection, unspecified site; I10 Essential (primary) hypertension; M19.90 Unspecified osteoarthritis, unspecified site; F41.9 Anxiety disorder, unspecified; F32.9 Major depressive disorder, single episode, unspecified; K21.9 Gastro-esophageal reflux disease without esophagitis; R56.9 Unspecified convulsions; Z23 Encounter for immunization
CPT/HCPCS: 86403; 87070; 87186; 90471; 90714; 96365

== ENCOUNTER 2017-02-20 17:01 | Emergency (ER) | payer OTHER ==
[~2017-02-20] VITALS: Ht 177.8 cm; Wt 75.0 kg
[~2017-02-20 17:01] MED LIST changes: -AMLO5 PO; +AMLO5TAB2 PO; +CLIN1CAP6 PO; +MUPI2%T TOPICAL
[2017-02-20 17:05] VITALS: BP 185/111; PULSE 104; RESP 16; TEMP 98.1; O2SAT 98
--- NOTE | 2017-02-20 17:17 | PD ---
Physical Exam Date Seen by Provider: Feb 20, 2017 Time Seen by Provider: 17:15 Narrative 61-year-old homeless gentleman presents to the emergency department with ongoing pain from multiple skin lesions that were diagnosed 2 days ago. Patient states he was diagnosed with impetigo and was given antibiotics and topical ointment. He is here for reassessment as he feels is not improving. Patient has history of MRSA. Patient is allergic to Keflex and codeine. Vital signs are reviewed. Patient is awaiting med bed placement. Data Data Last Documented VS Vital Signs Date Time Temp Pulse Resp B/P (MAP) Pulse Ox O2 Delivery O2 Flow Rate FiO2 02/20/17 17:05 98.1 104 16 185/111 (135) 98 MDM Medical Record Reviewed: Yes Supervised Visit with SEVEN: Yes Condition: Stable Serge Talbert Feb 20, 2017 17:17
== END 2017-02-20 18:21 | disposition left against medical advice (07) ==
LOC: NED 17:01
DX: L01.00 Impetigo, unspecified (principal); Z86.14 Personal history of Methicillin resistant Staphylococcus aureus infection
CPT/HCPCS: 99281

== ENCOUNTER 2017-03-03 00:24 | Emergency (ER) | payer OTHER ==
[2017-03-03 00:40] VITALS: BP 187/117; PULSE 80; RESP 16; TEMP 98.3; O2SAT 98
== END 2017-03-03 00:55 | disposition left against medical advice (07) ==
LOC: NEDAMB 00:24
DX: R21 Rash and other nonspecific skin eruption (principal); Z53.21 Procedure and treatment not carried out due to patient leaving prior to being seen by health care provider
CPT/HCPCS: 99281

== ENCOUNTER 2017-04-02 21:13 | Emergency (ER) | payer OTHER ==
[~2017-04-02 21:13] MED LIST changes: -CLIN1CAP6 PO; -MUPI2%T TOPICAL
[2017-04-02 21:26] VITALS: BP 167/115; PULSE 105; RESP 22; TEMP 98.9; O2SAT 98
[2017-04-02] MEDS ORDERED: SODIUM CHLORIDE 0.9% FLUSH 10 ML FLUSH IVF PRN (21:45)
[2017-04-02] MEDS ORDERED: CLINDAMYCIN INJ 900 MG in SODIUM CHLORIDE 0.9% INJ 100 ML IV ONE (21:45)
--- NOTE | 2017-04-02 21:53 | PD ---
HPI . Right great toe pain Chief Complaint: Fall Time Seen by Provider: 21:29 Travel History International Travel<30 days: No Contact w/Intl Traveler<30days: No Traveled to known affect area: No History of Present Illness HPI This patient presents with chief complaint of right great toe pain. He states that he had a trip and fall at about 6:30. He has had right great toe pain since that time. He describes constant, throbbing pain which she states is "real bad." There have been no modifying factors. This patient is homeless. He has a cast shoe on his right foot and crutches. PFSH Past Medical History Arthritis: Yes Blood Disorders: No Anxiety: Yes Depression: Yes Cancer: No Cardiovascular Problems: Yes (HTN) Diabetes: No Diminished Hearing: No Endocrine: No Gastrointestinal Disorders: No GERD: Yes Genitourinary: No Hepatitis: Yes (HEP C) Hypertension: Yes Immune Disorder: No Musculoskeletal: Yes (arthritis) Neurologic: Yes (dizziness) Psychiatric: No Reproductive: No Respiratory: No Immunizations Current: Yes Seizures: Yes Past Surgical History Body Medical Devices: titanium in body Joint Replacement: Yes (left hip replacement, left arm fusion,) Other Surgery: Yes (TITANIUM HIPS,BACK, ANKLES) Social History Alcohol Use: Yes (DAILY) Tobacco Use: Yes (1/2 ppd ) Substance Use: No (PT DENIES) Allergies-Medications (Allergen,Severity, Reaction): Coded Allergies: cephalexin (Verified Allergy, Severe, SWELLING/RASH, 04/03/17) codeine (Verified Allergy, Severe, Swelling, 04/03/17) *MDRO Multi-Drug Resistant Organism (Verified Adverse Reaction, Unknown, 04/03/17) ESBL+E.Coli (urine-10/2015) Reported Meds & Prescriptions Reported Meds & Active Scripts Active Active Prescriptions or Reported Medications Unobtainable Review of Systems Except as stated in HPI: all other systems reviewed are Neg General / Constitutional: No: Fever, Chills Musculoskeletal: Positive: Pain (right great toe pain) Skin: Positive Change in Pigmentation, Positive Other (swelling of the left hand) Physical Exam Narrative GENERAL: Disheveled man who is in no acute distress. SKIN: warm/dry. He has redness, warmth, swelling and tenderness of the dorsal aspect of the left hand. He has a couple of scabbed lesions on his left hand. He has a dressing on his right great toe. The dressing was removed. The underlying skin is intact. No purulent drainage. HEAD: Normocephalic. Atraumatic. EYES: Pupils equal and round. No scleral icterus. No injection or drainage. ENT: No nasal bleeding or discharge. Mucous membranes pink and moist. NECK: Trachea midline. Full range of motion without pain.. CARDIOVASCULAR: Regular rate and rhythm. RESPIRATORY: No accessory muscle use. Clear to auscultation. Breath sounds equal bilaterally. GASTROINTESTINAL: Abdomen soft. Nontender. Bowel sounds present. Nondistended. MUSCULOSKELETAL: No obvious deformities. Logrolling of both hips causes no pain. There is no shortening or malrotation of either leg. NEUROLOGICAL: Awake and alert. No obvious cranial nerve deficits. Motor grossly within normal limits. Normal speech. PSYCHIATRIC: Appropriate mood and affect; insight and judgment normal. Data Data Last Documented VS Vital Signs Date Time Temp Pulse Resp B/P (MAP) Pulse Ox O2 Delivery O2 Flow Rate FiO2 04/02/17 23:30 Room Air 04/02/17 21:26 98.9 105 22 167/115 (132) 98 Orders Orders Basic Metabolic Panel (Bmp) (04/02/17 21:38) Complete Blood Count With Diff (04/02/17 21:38) Blood Culture (04/02/17 21:38) Iv Access Insert/Monitor (04/02/17 21:38) Sodium Chloride 0.9% Flush (Ns Flush) (04/02/17 21:45) Clindamycin Inj (Cleocin Inj) (04/02/17 21:45) Lactic Acid (04/02/17 23:54) Labs Laboratory Tests Test 04/02/17 21:40 04/03/17 00:08 White Blood Count 8.2 TH/MM3 Red Blood Count 4.05 MIL/MM3 Hemoglobin 11.1 GM/DL Hematocrit 32.2 % Mean Corpuscular Volume 79.4 FL Mean Corpuscular Hemoglobin 27.3 PG Mean Corpuscular Hemoglobin Concent 34.4 % Red Cell Distribution Width 14.1 % Platelet Count 203 TH/MM3 Mean Platelet Volume 8.4 FL Neutrophils (%) (Auto) 65.3 % Lymphocytes (%) (Auto) 23.4 % Monocytes (%) (Auto) 9.1 % Eosinophils (%) (Auto) 1.5 % Basophils (%) (Auto) 0.7 % Neutrophils # (Auto) 5.4 TH/MM3 Lymphocytes # (Auto) 1.9 TH/MM3 Monocytes # (Auto) 0.7 TH/MM3 Eosinophils # (Auto) 0.1 TH/MM3 Basophils # (Auto) 0.1 TH/MM3 CBC Comment DIFF FINAL Differential Comment Blood Urea Nitrogen 36 MG/DL Creatinine 2.17 MG/DL Random Glucose 117 MG/DL Calcium Level 8.7 MG/DL Sodium Level 136 MEQ/L Potassium Level 3.5 MEQ/L Chloride Level 100 MEQ/L Carbon Dioxide Level 26.5 MEQ/L Anion Gap 10 MEQ/L Estimat Glomerular Filtration Rate 31 ML/MIN Lactic Acid Level 0.6 mmol/L MDM Medical Decision Making Medical Screen Exam Complete: Yes Emergency Medical Condition: Yes Medical Record Reviewed: Yes (patient was here on 03/31 complaining with right great toe pain. He had an x-ray done at that time which was negative. He was treated for a superficial abrasion. He was placed in a cast shoe and given crutches.) Differential Diagnosis My differential diagnosis includes but is not limited to localized wound infection, cellulitis, abscess Narrative Course This patient presents with the chief complaint of right great toe pain. His right great toe pain was evaluated 2 days ago. However, he is found to have cellulitis in his left hand. I have ordered a septic workup. He will be treated with clindamycin while awaiting that workup. CBC & BMP Diagram 04/02/17 21:40 Calcium Level 8.7 LA 0.6 This patient is now stable for discharge. I will give him a prescription for Septra. Sepsis Criteria SIRS Criteria (2 or more): Heart rate over 90, RR > 20 or PaCO2 < 32 Sepsis Criteria (SIRS+source): Infect source susp/known Criteria Outcome: Meets SIRS criteria, Meets sepsis criteria Diagnosis Primary Impression: Cellulitis of left hand Patient Instructions: Cellulitis (DC), General Instructions Med/Other Pt SpecificInfo: Prescription(s) given Scripts Sulfamethoxazole-Trimethoprim (Bactrim DS) 800-160 Mg Tab 1 TAB PO BID for Infection, #20 TAB 0 Refills Prov: Paula Clarke MD 04/03/17 Disposition: DISCHARGE HOME Condition: Stable Paula Clarke MD Apr 02, 2017 21:53
[2017-04-02 23:07] LABS: AUTOMATED NEUTROPHIL # 5.4 TH/MM3 (1.8-7.7); BASOPHIL # 0.1 TH/MM3 (0-0.2); BASOPHIL % 0.7 % (0.0-2.0); EOSINOPHIL # 0.1 TH/MM3 (0-0.4); EOSINOPHIL % 1.5 % (0.0-4.0); HEMATOCRIT 32.2 % (39.0-51.0); HEMO FLAGS DIFF FINAL; LYMPH % 23.4 % (9.0-44.0); LYMPHOCYTE # 1.9 TH/MM3 (1.0-4.8); MEAN CELL VOLUME 79.4 FL (80.0-100.0); MEAN CORPUSCULAR HEMOGLOBIN 27.3 PG (27.0-34.0); MEAN CORPUSCULAR HGB CONC 34.4 % (32.0-36.0); MONO % 9.1 % (0.0-8.0); NEUT % 65.3 % (16.0-70.0); PLATELET COUNT 203 TH/MM3 (150-450); RED BLOOD COUNT 4.05 MIL/MM3 (4.50-5.90); RED CELL DISTRIBUTION WIDTH 14.1 % (11.6-17.2); WHITE BLOOD COUNT 8.2 TH/MM3 (4.0-11.0)
[2017-04-02 23:31] LABS: BICARBONATE 26.5 MEQ/L (21.0-32.0); POTASSIUM 3.5 MEQ/L (3.5-5.1)
[2017-04-03] MEDS ORDERED: BACT800T5 PO (00:49)
== END 2017-04-03 01:40 | disposition home or self-care (01) ==
LOC: NEPE 21:13
DX: L03.114 Cellulitis of left upper limb (principal); M19.90 Unspecified osteoarthritis, unspecified site; F41.9 Anxiety disorder, unspecified; F32.9 Major depressive disorder, single episode, unspecified; I10 Essential (primary) hypertension; K21.9 Gastro-esophageal reflux disease without esophagitis; F17.200 Nicotine dependence, unspecified, uncomplicated; Z59.0 Homelessness; Z86.19 Personal history of other infectious and parasitic diseases
CPT/HCPCS: 80048; 83605; 85025; 87040; 96365

== ENCOUNTER 2017-04-09 19:22 | Inpatient (IN) | payer OTHER ==
[~2017-04-09 19:22] MED LIST changes: -AMLO5TAB2 PO; +BACT800T5 PO
[2017-04-09 19:42] VITALS: BP 184/115; PULSE 88; RESP 18; TEMP 98.9; O2SAT 95
--- NOTE | 2017-04-09 21:32 | PD ---
HPI Chief Complaint: Psychiatric Symptoms Time Seen by Provider: 21:07 Travel History International Travel<30 days: No Contact w/Intl Traveler<30days: No Traveled to known affect area: No History of Present Illness HPI 60-year-old male that presents to the ED for evaluation of Edouard act. Patient was Edouard acted by police secondary to making suicidal statements. Patient states that he is homeless and he doesn't have the will to leave. Patient here denies saying this and states that he didn't mean to say that. Patient does complain of some wounds to his hands to have been seen here before. Patient states that he did not fill the antibiotic. Unclear as to why. He is not really a good historian. He cannot really tell me how he got the lesions and when asked if he got any hot fluid or acid on it he denies this. They do appear to be blistery likely superficial marina. He states having some pain on the hands because of the lesions. Pain per patient is 4 out of 10. He is a frequent flyer and comes here requesting only. He does have a history of homelessness. He denies any chest pain or shortness of breath. When asked what happened to his hands he cannot really tell me. He was walks with a cane or crutch. This is chronic for him. He denies any falls or injuries. He denies any substance abuse but states drinking alcohol on occasion. No chest pain or shortness of breath. Symptoms appear to have worsened because of the homelessness. Unclear as to the length of symptoms. PFSH Past Medical History Arthritis: Yes Autoimmune Disease: No Blood Disorders: No Anxiety: Yes Depression: Yes Cancer: No Cardiovascular Problems: Yes (HTN) Diabetes: No Diminished Hearing: No Endocrine: No Gastrointestinal Disorders: No GERD: Yes Genitourinary: No Hepatitis: Yes (HEP C) Hypertension: Yes Immune Disorder: No Musculoskeletal: Yes (arthritis) Neurologic: Yes (dizziness) Psychiatric: No Reproductive: No Respiratory: No Immunizations Current: Yes Seizures: Yes Tetanus Vaccination: < 5 Years Influenza Vaccination: No Past Surgical History AICD: No Arteriovenous Shunt: No Body Medical Devices: titanium in body Joint Replacement: Yes (left hip replacement, left arm fusion,) Pacemaker: No Other Surgery: Yes (TITANIUM HIPS,BACK, ANKLES) Social History Alcohol Use: Yes (DAILY) Tobacco Use: Yes (1/2 ppd ) Substance Use: No (PT DENIES) Allergies-Medications (Allergen,Severity, Reaction): Coded Allergies: cephalexin (Verified Allergy, Severe, SWELLING/RASH, 04/09/17) codeine (Verified Allergy, Severe, Swelling, 04/09/17) *MDRO Multi-Drug Resistant Organism (Verified Adverse Reaction, Unknown, 04/09/17) ESBL+E.Coli (urine-10/2015) Reported Meds & Prescriptions Reported Meds & Active Scripts Active Bactrim DS (Sulfamethoxazole-Trimethoprim) 800-160 Mg Tab 1 Tab PO BID Review of Systems Except as stated in HPI: all other systems reviewed are Neg Physical Exam Narrative GENERAL: SKIN: Warm and dry. HEAD: Atraumatic. Normocephalic. EYES: Pupils equal and round. No scleral icterus. No injection or drainage. ENT: No nasal bleeding or discharge. Mucous membranes pink and moist. Tongue is midline. No uvula deviation. NECK: Trachea midline. No JVD. CARDIOVASCULAR: Regular rate and rhythm. No murmurs, S3, S4. RESPIRATORY: No accessory muscle use. Clear to auscultation. Breath sounds equal bilaterally. GASTROINTESTINAL: Abdomen soft, non-tender, nondistended. Hepatic and splenic margins not palpable. MUSCULOSKELETAL: Extremities without clubbing, cyanosis, or edema. No obvious deformities. Full range of motion of the upper and lower extremities bilaterally. Patient does have blistery-like lesions on the hands bilaterally. Most of the blisters appear to have popped already. More noticeable on the left hand. Patient does have a small blister noted on the dorsal aspect of the right hand about 2 cm. Slightly tender. No obvious purulence or erythema noted. Good capillary refill of the digits. Full range of motion of the digits. Most of the lesions appear to be less than 1 cm in diameter and does appear to have some yellow crusting. NEUROLOGICAL: Awake and alert. No obvious cranial nerve deficits. Motor grossly within normal limits. Five out of 5 muscle strength in the arms and legs. Normal speech. PSYCHIATRIC: Appropriate mood and affect; insight and judgment normal. Data Data Last Documented VS Vital Signs Date Time Temp Pulse Resp B/P (MAP) Pulse Ox O2 Delivery O2 Flow Rate FiO2 04/09/17 19:42 98.9 88 18 184/115 (138) 95 Orders Orders Complete Blood Count With Diff (04/09/17 21:08) Comprehensive Metabolic Panel (04/09/17 21:08) Psych Screen (04/09/17 21:08) Drug Screen, Random Urine (04/09/17 21:08) Alcohol (Ethanol) (04/09/17 21:08) Salicylates (Aspirin) (04/09/17 21:08) Tylenol (Acetaminophen) (04/09/17 21:08) Wound Care (04/09/17 21:24) Sulfamet-Trimeth Ds 800-160 Mg (Bactrim (04/09/17 21:45) Labs Laboratory Tests Test 04/09/17 21:15 04/09/17 22:28 Urine Opiates Screen NEG Urine Barbiturates Screen NEG Urine Amphetamines Screen NEG Urine Benzodiazepines Screen NEG Urine Cocaine Screen NEG Urine Cannabinoids Screen NEG White Blood Count 8.6 TH/MM3 Red Blood Count 4.06 MIL/MM3 Hemoglobin 11.1 GM/DL Hematocrit 32.2 % Mean Corpuscular Volume 79.4 FL Mean Corpuscular Hemoglobin 27.3 PG Mean Corpuscular Hemoglobin Concent 34.4 % Red Cell Distribution Width 14.0 % Platelet Count 254 TH/MM3 Mean Platelet Volume 7.3 FL Neutrophils (%) (Auto) 54.8 % Lymphocytes (%) (Auto) 34.1 % Monocytes (%) (Auto) 7.3 % Eosinophils (%) (Auto) 2.3 % Basophils (%) (Auto) 1.5 % Neutrophils # (Auto) 4.7 TH/MM3 Lymphocytes # (Auto) 2.9 TH/MM3 Monocytes # (Auto) 0.6 TH/MM3 Eosinophils # (Auto) 0.2 TH/MM3 Basophils # (Auto) 0.1 TH/MM3 CBC Comment DIFF FINAL Differential Comment MDM Medical Decision Making Medical Screen Exam Complete: Yes Emergency Medical Condition: Yes Medical Record Reviewed: Yes Differential Diagnosis Depression versus suicidal ideation versus anxiety versus adjustment disorder versus mood disorder versus bipolar disorder versus schizophrenia versus paranoid disorder versus psychosis versus substance abuse versus alcohol abuse versus alcohol induced psychosis versus homicidality addition versus cutting versus personality disorder versus skin lesions versus cellulitis versus normal exam Narrative Course 61-year-old male that presents to the ED for evaluation of Edouard act. Patient was properly examined and was found to have signs and symptoms consistent what appears to be psychiatric. Patient does appear to have lesions to his hands that appear to be chronic possibly from marina. No sign of third degree marina. Patient able to move the fingers fully. He will not really tell us what happened. He was seen here a few days ago and was given antibiotics but he did not fill them. The lesions themselves do not appear to be cellulitic at this time but do appear to be marina. We'll start wound care here. Patient will be given a dose of Bactrim here. Given a prescription for this. Labs were drawn. Patient will be medically clear pending labs. Okay to be seen by psych. Mental health screening was discussed with the patient. Diagnosis Primary Impression: Depression Qualified Codes: F32.1 - Major depressive disorder, single episode, moderate Additional Impressions: Hand blister Qualified Codes: S60.521A - Blister (nonthermal) of right hand, initial encounter Impetigo Scripts Sulfamethoxazole-Trimethoprim (Bactrim DS) 800-160 Mg Tab 1 TAB PO BID for Infection, #20 TAB 0 Refills Prov: Eyad Santos MD 04/09/17 Jai Cleaning Apr 09, 2017 21:32
[2017-04-09] MEDS ORDERED: BACT800T5 PO (21:33)
[2017-04-09] MEDS ORDERED: SULFAMETHOXAZOLE-TRIMETHOPRIM DS 800-160 MG TAB PO ONE (21:45)
[2017-04-09 22:35] LABS: AUTOMATED NEUTROPHIL # 4.7 TH/MM3 (1.8-7.7); BASOPHIL # 0.1 TH/MM3 (0-0.2); BASOPHIL % 1.5 % (0.0-2.0); EOSINOPHIL # 0.2 TH/MM3 (0-0.4); EOSINOPHIL % 2.3 % (0.0-4.0); HEMATOCRIT 32.2 % (39.0-51.0); HEMO FLAGS DIFF FINAL; LYMPH % 34.1 % (9.0-44.0); LYMPHOCYTE # 2.9 TH/MM3 (1.0-4.8); MEAN CELL VOLUME 79.4 FL (80.0-100.0); MEAN CORPUSCULAR HEMOGLOBIN 27.3 PG (27.0-34.0); MEAN CORPUSCULAR HGB CONC 34.4 % (32.0-36.0); MONO % 7.3 % (0.0-8.0); NEUT % 54.8 % (16.0-70.0); PLATELET COUNT 254 TH/MM3 (150-450); RED BLOOD COUNT 4.06 MIL/MM3 (4.50-5.90); WHITE BLOOD COUNT 8.6 TH/MM3 (4.0-11.0)
[2017-04-09 22:51] LABS: ALT (GPT) 42 U/L (12-78); ANION GAP 8 MEQ/L (5-15); AST (GOT) 45 U/L (15-37); BLOOD UREA NITROGEN 34 MG/DL (7-18); CHLORIDE 102 MEQ/L (98-107); GLOMERULAR FILTRATION RATE 28 ML/MIN (>89); POTASSIUM 3.4 MEQ/L (3.5-5.1); SODIUM (NA) 139 MEQ/L (136-145)
[2017-04-09 22:54] LABS: ALKALINE PHOSPHATASE 59 U/L (45-117); TOTAL BILIRUBIN ADULT 0.3 MG/DL (0.2-1.0)
[2017-04-09 22:55] LABS: ACETAMINOPHEN LESS THAN 2.0 MCG/ML (10.0-30.0); ALCOHOL LESS THAN 3 MG/DL (0-5)
[2017-04-10 06:43] VITALS: BP 153/93; PULSE 74; RESP 16; TEMP 99.9; O2SAT 98
[2017-04-10] MEDS ORDERED: SULFAMETHOXAZOLE-TRIMETHOPRIM DS 800-160 MG TAB PO ONE (15:15)
[2017-04-10] MEDS ORDERED: MAGNESIUM HYDROXIDE SUSP 30 ML CUP PO PRN (16:15)
[2017-04-10] MEDS ORDERED: ACETAMINOPHEN 325 MG TAB PO PRN (16:15)
[2017-04-10] MEDS ORDERED: ALUMINUM/MAGNESIUM/SIMETH 30 ML CUP PO PRN (16:15)
--- NOTE | 2017-04-10 16:29 | HHI.HP ---
Provisional Diagnosis Admission Date Apr 10, 2017 at 16:12 [place] I. Adjustment disorder with depressed mood Certification of Person's Competence To Provide Express and Informed Consent I have personally examined Reggie Gottlieb , a person being served at [facility] on, Apr 10, 2017 16:19. Express and informed consent means consent voluntarily given in writing, by a competent person, after sufficient explanation and disclosure of the subject matter involved to enable the person to make a knowing and willful decision without any element of force, fraud, deceit, duress, or other form of constraint or coercion. This person is 18 years of age or older, is not now known to be incompetent to consent to treatment with a guardian advocate, and does not have a health care surrogate or proxy currently making medical treatment decisions. I have found this person to be one of the following: [x] Competent to provide express and informed consent, as defined above, for voluntary admission to this facility and is competent to provide express and informed consent for treatment. He/she has the consistent capacity to make well reasoned, willful, and knowing decisions concerning his or her medical or mental health treatment. The person fully and consistently understands the purpose of the admission for examination/placement and is fully capable of personally exercising all rights [place] Incompetent to provide express and informed consent to voluntary admission, and this is incompetent to provide express and informed consent to treatment. The person must be transferred to involuntary status and a petition for a guardian advocate filed with the Circuit Court. [] Refusing to provide express and informed consent to voluntary admission but is competent to provide express and informed consent for treatment. The person must be discharged or transferred to involuntary status. Form shall be completed within 24 hours of a person's arrival at the receiving facility and filed in the clinical record of each person: 1. Admitted on a voluntary basis 2. Permitted to provide express and informed consent to his/her own treatment 3. Allowed to transfer from involuntary to voluntary status 4. Prior to permitting a person to consent to his or her own treatment after having been previously found incompetent to consent to treatment. History of Present Illness Capacity: Has Capacity HPI 61-year-old male who has apparently been to this emergency department before, presents under a Edouard act that indicates he is suicidal. According to reports , the patient was Edouard acted by police. He indicated he was homeless and did not have the will to live. When initially seen in this emergency department he denied making suicidal statements and then said he did not mean to report suicidality. However, he was described as a poor historian and unable to provide consistent history regarding his physical illnesses. Apparently he has superficial injury to his hands with lesions, shortness of breath, walks with a cane or crutch, remains homeless and there is some history of traumatic brain injury. At this time, the patient does admit to symptoms of depressed mood, anhedonia, feelings of hopelessness or helplessness, not having the will to live (suicidal ) diminished energy, diminished self-esteem, social withdrawal, problems with concentration and memory, etc. He reportedly drinks alcohol on occasion. His toxicology screen was negative for both alcohol and drugs on the occasion of this admission. The patient called 911 himself, asking for help. The patient reportedly described multiple ways in which she could kill himself to law enforcement. The patient denies having family support. Review of Systems Musculoskeletal: COMPLAINS OF: Joint pain, Muscle aches, Joint Swelling Psychiatric: COMPLAINS OF: Depression Except as stated in HPI: all other systems reviewed are Neg Past Psych History Psychological trauma history Unknown. Patient is a poor historian. Violence risk - others (6 mos) Minimal Violence risk - self (6 mos) High Substance Abuse History Drugs/Alcohol past 12 months Patient were reports occasional alcohol use. Past Family Social History Coded Allergies: cephalexin (Verified Allergy, Severe, SWELLING/RASH, 04/09/17) codeine (Verified Allergy, Severe, Swelling, 04/09/17) *MDRO Multi-Drug Resistant Organism (Verified Adverse Reaction, Unknown, 04/09/17) ESBL+E.Coli (urine-10/2015) Active Scripts Sulfamethoxazole-Trimethoprim (Bactrim DS) 800-160 Mg Tab, 1 TAB PO BID for Infection, #20 TAB 0 Refills Prov:Eyad Santos MD 04/09/17 Current Medications Medications (Trade) Dose Ordered Sig/Artemio Route Start Time Stop Time Status Last Admin (Tylenol) 650 mg Q4H PRN PO 04/10/17 16:15 UNV (Milk Of Magnesia Liq) 30 ml DAILY PRN PO 04/10/17 16:15 UNV (Mag-Al Plus Susp Liq) 30 ml Q6H PRN PO 04/10/17 16:15 UNV (Atarax) 50 mg Q6H PRN PO 04/10/17 16:15 UNV Family Psych History Unknown. Patient is a inadequate historian. Social History Homeless. Unemployed. Has no family support. Uses alcohol intermittently. Denies drug abuse. Multiple medical problems including hepatitis C, hypertension, COPD, arthritis, etc. Patient's Strengths (min. 2) Verbal and has access to healthcare. Physical Exam GENERAL: SKIN: Warm and dry. HEAD: Normocephalic. EYES: No scleral icterus. No injection or drainage. NECK: Supple, trachea midline. No JVD or lymphadenopathy. CARDIOVASCULAR: Regular rate and rhythm without murmurs, gallops, or rubs. RESPIRATORY: Breath sounds equal bilaterally. No accessory muscle use. GASTROINTESTINAL: Abdomen soft, non-tender, nondistended. MUSCULOSKELETAL: No cyanosis, or edema. BACK: Nontender without obvious deformity. No CVA tenderness. Vital Signs Vital Signs Date Time Temp Pulse Resp B/P (MAP) Pulse Ox O2 Delivery O2 Flow Rate FiO2 04/10/17 06:43 99.9 74 16 153/93 (113) 98 Room Air Lab Results Test 04/09/17 21:15 04/09/17 22:28 Urine Opiates Screen NEG Urine Barbiturates Screen NEG Urine Amphetamines Screen NEG Urine Benzodiazepines Screen NEG Urine Cocaine Screen NEG Urine Cannabinoids Screen NEG White Blood Count 8.6 TH/MM3 Red Blood Count 4.06 MIL/MM3 Hemoglobin 11.1 GM/DL Hematocrit 32.2 % Mean Corpuscular Volume 79.4 FL Mean Corpuscular Hemoglobin 27.3 PG Mean Corpuscular Hemoglobin Concent 34.4 % Red Cell Distribution Width 14.0 % Platelet Count 254 TH/MM3 Mean Platelet Volume 7.3 FL Neutrophils (%) (Auto) 54.8 % Lymphocytes (%) (Auto) 34.1 % Monocytes (%) (Auto) 7.3 % Eosinophils (%) (Auto) 2.3 % Basophils (%) (Auto) 1.5 % Neutrophils # (Auto) 4.7 TH/MM3 Lymphocytes # (Auto) 2.9 TH/MM3 Monocytes # (Auto) 0.6 TH/MM3 Eosinophils # (Auto) 0.2 TH/MM3 Basophils # (Auto) 0.1 TH/MM3 CBC Comment DIFF FINAL Differential Comment Blood Urea Nitrogen 34 MG/DL Creatinine 2.33 MG/DL Random Glucose 129 MG/DL Total Protein 7.6 GM/DL Albumin 3.3 GM/DL Calcium Level 8.6 MG/DL Alkaline Phosphatase 59 U/L Aspartate Amino Transf (AST/SGOT) 45 U/L Alanine Aminotransferase (ALT/SGPT) 42 U/L Total Bilirubin 0.3 MG/DL Sodium Level 139 MEQ/L Potassium Level 3.4 MEQ/L Chloride Level 102 MEQ/L Carbon Dioxide Level 29.0 MEQ/L Anion Gap 8 MEQ/L Estimat Glomerular Filtration Rate 28 ML/MIN Salicylates Level LESS THAN 1.7 MG/DL Acetaminophen Level LESS THAN 2.0 MCG/ML Ethyl Alcohol Level LESS THAN 3 MG/DL Mental Status Examination Appearance: Dirty, Disheveled Consciousness: Lethargic Orientation: x4 Motor Activity: Normal gait Speech: Speech impediment Language: Adequate Fund of Knowledge: Inadequate Attention and Concentration: Easily Distracted Memory: Impaired Mood: Sad Affect: Sad Thought Process & Associations: Intact Thought Content: Appropriate Hallucination Type: None Delusion Type: None Suicidal Ideation: Yes Suicidal Plan: Yes Suicidal Intention: Yes Homicidal Ideation: No Homicidal Plan: No Homicidal Intention: No Insight: Adequate Judgment: Adequate Assessment & Plan Problem List: (1) Adjustment disorder with depressed mood ICD Codes: F43.21 - Adjustment disorder with depressed mood Assessment & Plan Estimated LOS: days. 61-year-old homeless man with possible history of alcohol abuse, presents with symptoms of depression and suicidality. Has patient's history and consistency is an issue, with repeated threats of suicide , patient is felt to be at high risk for self-harm. For this reason he is being admitted for evaluation and treatment. This physician will place the patient on a [facility] protocol to ensure there is no significant alcohol withdrawal issue. CBC and comprehensive metabolic panel will be obtained to ascertain any infectious process or metabolic process which might be adversely affecting his mood. We will also check thyroid-stimulating hormone, vitamin B-12 and vitamin D levels to determine if deficiencies in these areas are causing or contributing to his depression. This physician has asked for a hospitalist consult to evaluate the patient for his hepatitis, arthritis, hypertension, COPD, GERD, etc. This physician has also ordered an EKG to determine the patient's cardiac conduction status prior to starting him on psychotropic medicines. This physician spoke to the nurse practitioner, Jessi, regarding the patient's behavior. Finally, case management will also be involved to assist with information gathering and disposition planning. Emil Chavez MD Apr 10, 2017 16:29
[2017-04-10] MEDS ORDERED: FLUMAZENIL 0.5 MG/5 ML VIAL IV PUSH PRN (16:30)
[2017-04-10] MEDS ORDERED: LORazepam 2 MG TAB PO PRN (16:30)
[2017-04-10] MEDS ORDERED: LORazepam 2 MG/ML VIAL IV PUSH PRN ×4 (16:30)
[2017-04-10] MEDS ORDERED: LORazepam 1 MG TAB PO PRN (16:30)
[2017-04-10] MEDS: hydrOXYzine HCL 50 MG TAB PO PRN (21:33)
[2017-04-11 06:27] VITALS: BP 199/95; PULSE 80; RESP 16; TEMP 97.6; O2SAT 96
[2017-04-11] MEDS: hydrOXYzine HCL 50 MG TAB PO PRN ×2 (06:29→21:08)
[2017-04-11 10:07] LABS: AUTOMATED NEUTROPHIL # 3.4 TH/MM3 (1.8-7.7); BASOPHIL # 0.1 TH/MM3 (0-0.2); BASOPHIL % 1.2 % (0.0-2.0); EOSINOPHIL # 0.1 TH/MM3 (0-0.4); EOSINOPHIL % 2.1 % (0.0-4.0); HEMATOCRIT 32.2 % (39.0-51.0); HEMO FLAGS DIFF FINAL; LYMPH % 32.3 % (9.0-44.0); LYMPHOCYTE # 1.9 TH/MM3 (1.0-4.8); MEAN CELL VOLUME 79.9 FL (80.0-100.0); MEAN CORPUSCULAR HEMOGLOBIN 27.1 PG (27.0-34.0); MEAN CORPUSCULAR HGB CONC 33.9 % (32.0-36.0); NEUT % 57.4 % (16.0-70.0); PLATELET COUNT 231 TH/MM3 (150-450); RED BLOOD COUNT 4.03 MIL/MM3 (4.50-5.90); RED CELL DISTRIBUTION WIDTH 13.9 % (11.6-17.2); WHITE BLOOD COUNT 5.9 TH/MM3 (4.0-11.0)
[2017-04-11 10:36] LABS: ANION GAP 8 MEQ/L (5-15); AST (GOT) 46 U/L (15-37); BICARBONATE 27.2 MEQ/L (21.0-32.0); BLOOD UREA NITROGEN 31 MG/DL (7-18); CHLORIDE 101 MEQ/L (98-107); GLOMERULAR FILTRATION RATE 28 ML/MIN (>89); POTASSIUM 3.6 MEQ/L (3.5-5.1); SODIUM (NA) 136 MEQ/L (136-145)
[2017-04-11 10:37] LABS: ALT (GPT) 41 U/L (12-78)
[2017-04-11 11:03] LABS: ALKALINE PHOSPHATASE 52 U/L (45-117); HDL CHOLESTEROL 55.1 MG/DL (40.0-60.0); LDL CHOLESTEROL 44 MG/DL (0-99); TOTAL BILIRUBIN ADULT 0.3 MG/DL (0.2-1.0)
[2017-04-11] MEDS ORDERED: PILL SPLITTER OTHER PRN (12:45)
[2017-04-11] MEDS ORDERED: SERTRALINE HCL 50 MG TAB PO ONE (13:00)
[2017-04-11 13:37] LABS: HEMOGLOBIN A1a 0.7 %; HEMOGLOBIN Ao 56.9 %; HEMOGLOBIN LA1C 1.5 %; HEMOGLOBIN P3 2.5 %
--- NOTE | 2017-04-11 14:57 | PD.CONS ---
[facility] By [facility] Reason for Consult medical management Primary Care Physician Unknown Diagnoses: History of Present Illness patient is a 61 years old male who states he has history of hypertension but not on any meds and states has been living in the [address] for couple of months who was brought in here under backer act becasue of suicidal ideations. Otherwise he denies any complains of pain, shortness of breath or any bleeding tendencies. Patient a little impatient with history taking and states he is hungry and want more food. [facility] consulted for medial management Review of Systems Constitutional: DENIES: Fever, Weight loss, Chills, Change in appetite Eyes: DENIES: Blurred vision, Double Vision Ears, nose, mouth, throat: DENIES: Tinnitus, Ear Pain, Epistaxis, Odynophagia Respiratory: DENIES: Cough, Hemoptysis, Sputum production, Shortness of breath Cardiovascular: DENIES: Chest pain, Palpitations, Dyspnea on Exertion, Lower Extremity Edema, Orthopnea Gastrointestinal: DENIES: Black stools, Bloody stools, Difficulty Swallowing, Anorexia Genitourinary: DENIES: Urgency, Hematuria, Penile Discharge Musculoskeletal: DENIES: Joint pain, Stiffness Integumentary: DENIES: Pruritus Hematologic/lymphatic: DENIES: Bruising Immunologic/allergic: DENIES: Urticaria Neurologic: DENIES: Headache, Speech Problems, Tremor Psychiatric: DENIES: Suicidal Ideation, Homicidal Ideation Past Family Social History Allergies: Coded Allergies: cephalexin (Verified Allergy, Severe, SWELLING/RASH, 04/09/17) codeine (Verified Allergy, Severe, Swelling, 04/09/17) *MDRO Multi-Drug Resistant Organism (Verified Adverse Reaction, Unknown, 04/09/17) ESBL+E.Coli (urine-10/2015) Past Medical History states history of hyeprtension depression Past Surgical History none Reported Medications none as OP Active Ordered Medications on Seroquel and Atarax Family History "I don't know" Social History smoker none for weeks "little bit" of alcohol denies cocaine or marijuana use Physical Exam Vital Signs Vital Signs Date Time Temp Pulse Resp B/P (MAP) Pulse Ox O2 Delivery O2 Flow Rate FiO2 04/11/17 06:27 97.6 80 16 199/95 (129) 96 04/10/17 18:20 Physical Exam GENERAL: awake and alert, easily gets mad, impatient SKIN: dry skin HEAD: Atraumatic. Normocephalic. EYES: Pupils equal round and reactive. Extraocular motions intact. No scleral icterus. ENT: Nose without bleeding, Throat without erythema, tonsillar hypertrophy or exudate. NECK: Trachea midline. No JVD or lymphadenopathy. Supple, nontender, no meningeal signs. CARDIOVASCULAR: Regular rate and rhythm without murmurs, gallops, or rubs. RESPIRATORY: Clear to auscultation. Breath sounds equal bilaterally. No wheezes , rales, or rhonchi. GASTROINTESTINAL: Abdomen soft, non-tender, nondistended. No hepato-splenomegaly , or palpable masses. No guarding. MUSCULOSKELETAL: Extremities without clubbing, cyanosis, or edema. No joint tenderness, effusion, or edema noted. No calf tenderness. Negative Homans sign bilaterally. NEUROLOGICAL: Awake and alert. Cranial nerves II through XII intact. Motor and sensory grossly within normal limits. Five out of 5 muscle strength in all muscle groups. Normal speech. Laboratory Laboratory Tests Test 04/11/17 09:40 White Blood Count 5.9 Red Blood Count 4.03 Hemoglobin 10.9 Hematocrit 32.2 Mean Corpuscular Volume 79.9 Mean Corpuscular Hemoglobin 27.1 Mean Corpuscular Hemoglobin Concent 33.9 Red Cell Distribution Width 13.9 Platelet Count 231 Mean Platelet Volume 7.4 Neutrophils (%) (Auto) 57.4 Lymphocytes (%) (Auto) 32.3 Monocytes (%) (Auto) 7.0 Eosinophils (%) (Auto) 2.1 Basophils (%) (Auto) 1.2 Neutrophils # (Auto) 3.4 Lymphocytes # (Auto) 1.9 Monocytes # (Auto) 0.4 Eosinophils # (Auto) 0.1 Basophils # (Auto) 0.1 CBC Comment DIFF FINAL Differential Comment Blood Urea Nitrogen 31 Creatinine 2.34 Random Glucose 124 Total Protein 6.5 Albumin 2.7 Calcium Level 8.5 Alkaline Phosphatase 52 Aspartate Amino Transf (AST/SGOT) 46 Alanine Aminotransferase (ALT/SGPT) 41 Total Bilirubin 0.3 Sodium Level 136 Potassium Level 3.6 Chloride Level 101 Carbon Dioxide Level 27.2 Anion Gap 8 Estimat Glomerular Filtration Rate 28 Triglycerides Level 93 Cholesterol Level 118 LDL Cholesterol 44 HDL Cholesterol 55.1 Cholesterol/HDL Ratio 2.14 Vitamin B12 Level 324 25-Hydroxy Vitamin D Total 51.2 Result Diagram: 11/10/17 0940 04/11/17939 Assessment and Plan Assessment and Plan 61 years old male Depression- psychaitry ff KCKI- stage 3.- 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 review old labs- same range. patient denies any kowledge of this. states voiding. get renal Ultrasound History of hypertension. elevated readings. reviewed meds start patient on CCB- Procardia 30 mg XL daily Dry skin- Lachydrin bid Anemia- likely of chronic renal disease encourage patient to up and ambulate thank you for this consult. will ff patient in house with you Marti Shelby MD Apr 11, 2017 14:57
[2017-04-11] MEDS: LACTIC ACID (AMMONIUM LACTATE) 12% LOTION 225 GM BTL TOPICAL SCH ×2 (15:00→21:08)
[2017-04-11] MEDS: NIFEdipine 30 MG SUSTAINED RELEASE TAB PO SCH ×2 (15:15→18:33)
[2017-04-11 18:00] VITALS: BP 192/100; PULSE 80; RESP 17; TEMP 97.8; O2SAT 97
[2017-04-12 05:07] VITALS: BP 166/99; PULSE 77; RESP 18; TEMP 98; O2SAT 96
--- NOTE | 2017-04-12 07:59 | HHI.PYPN ---
Subjective Remarks LATE ENTRY FOR 04/11/17 - Patient seen for follow up; chart reviewed. Patient found lying on hospital bed , guarded and superficially cooperative with interview and irritable. Patient is a 60 y/o man, single, homeless, unemployed with past psychiatric history of depression, alcohol use disorder, no prior psychiatric admissions, no prior suicide attempts or self injurious behavior who was admitted under [place] for suicidal ideations and statements in the context of homelessness and not wanting to live. Patient was found lying on hospital bed, superficcially cooperative, irritable stating that he has been having SI for the past month, feeling depressed "long time". He reports no change in sleep, appetite, energy, concentration being "so-so", current stressors include homelessness and financial difficulty. Currently he states feeling depressed, denies SI, HI, AVH or delusions at time of interview. Review of Systems Except as stated in HPI: all other systems reviewed are Neg Mental Status Examination Appearance: Dirty, Disheveled Consciousness: Lethargic Orientation: x4 Motor Activity: Normal gait Speech: Slow, Speech impediment Language: Adequate Fund of Knowledge: Inadequate Attention and Concentration: Easily Distracted Memory: Impaired Mood: Irritable Affect: Irritable Thought Process & Associations: Intact Thought Content: Appropriate Hallucination Type: None Delusion Type: None Suicidal Ideation: Yes (denies at this time) Suicidal Plan: No Suicidal Intention: No Homicidal Ideation: No Homicidal Plan: No Homicidal Intention: No Insight: Adequate Judgment: Adequate Results Labs labs reviewed Test 04/11/17 09:40 White Blood Count 5.9 TH/MM3 Red Blood Count 4.03 MIL/MM3 Hemoglobin 10.9 GM/DL Hematocrit 32.2 % Mean Corpuscular Volume 79.9 FL Mean Corpuscular Hemoglobin 27.1 PG Mean Corpuscular Hemoglobin Concent 33.9 % Red Cell Distribution Width 13.9 % Platelet Count 231 TH/MM3 Mean Platelet Volume 7.4 FL Neutrophils (%) (Auto) 57.4 % Lymphocytes (%) (Auto) 32.3 % Monocytes (%) (Auto) 7.0 % Eosinophils (%) (Auto) 2.1 % Basophils (%) (Auto) 1.2 % Neutrophils # (Auto) 3.4 TH/MM3 Lymphocytes # (Auto) 1.9 TH/MM3 Monocytes # (Auto) 0.4 TH/MM3 Eosinophils # (Auto) 0.1 TH/MM3 Basophils # (Auto) 0.1 TH/MM3 CBC Comment DIFF FINAL Differential Comment Blood Urea Nitrogen 31 MG/DL Creatinine 2.34 MG/DL Random Glucose 124 MG/DL Total Protein 6.5 GM/DL Albumin 2.7 GM/DL Calcium Level 8.5 MG/DL Alkaline Phosphatase 52 U/L Aspartate Amino Transf (AST/SGOT) 46 U/L Alanine Aminotransferase (ALT/SGPT) 41 U/L Total Bilirubin 0.3 MG/DL Sodium Level 136 MEQ/L Potassium Level 3.6 MEQ/L Chloride Level 101 MEQ/L Carbon Dioxide Level 27.2 MEQ/L Anion Gap 8 MEQ/L Estimat Glomerular Filtration Rate 28 ML/MIN Hemoglobin A1c 5.5 % Triglycerides Level 93 MG/DL Cholesterol Level 118 MG/DL LDL Cholesterol 44 MG/DL HDL Cholesterol 55.1 MG/DL Cholesterol/HDL Ratio 2.14 RATIO Vitamin B12 Level 324 PG/ML 25-Hydroxy Vitamin D Total 51.2 ng/ML Vitals/IOs Vital Signs Date Time Temp Pulse Resp B/P (MAP) Pulse Ox O2 Delivery O2 Flow Rate FiO2 04/12/17 05:07 98.0 77 18 166/99 (121) 96 04/10/17 06:43 Room Air Intake and Output 04/12/17 04/12/17 04/13/17 08:00 16:00 00:00 Intake Total 0 ml Balance 0 ml Assessment & Plan Problem List: (1) Adjustment disorder with depressed mood ICD Codes: F43.21 - Adjustment disorder with depressed mood Assessment & Plan Patient noted to be guarded, endorsing feeling depressed with recent SI in the context of homelessness and financial difficulty. Start sertraline 25mg PO daily with upward titration for depression. Encourage maintenence of personal hygiene and participation in groups and activities. Will order PT and OT consult. Recommendations as per primary medical team. Discharge planning in progress. Justification for Cont. Inpt. At risk for further decompensation if at lower level of care. Discharge Planning Patient may require referral to homeless residential or [facility]. Boby Hill MD Apr 12, 2017 07:59
[2017-04-12] MEDS: NIFEdipine 30 MG SUSTAINED RELEASE TAB PO SCH (08:59)
[2017-04-12] MEDS: SERTRALINE HCL 50 MG TAB PO SCH (08:59)
[2017-04-12] MEDS: LACTIC ACID (AMMONIUM LACTATE) 12% LOTION 225 GM BTL TOPICAL SCH ×3 (09:05→21:00)
--- NOTE | 2017-04-12 13:56 | HHI.PR ---
Subjective Remarks patient irritable, states feels depressed still not happy with food here no diarrhea, no headaches Objective Vitals Vital Signs Date Time Temp Pulse Resp B/P (MAP) Pulse Ox O2 Delivery O2 Flow Rate FiO2 04/12/17 05:07 98.0 77 18 166/99 (121) 96 04/11/17 18:00 97.8 80 17 192/100 (130) 97 I/O 04/11/17 04/11/17 04/11/17 04/12/17 04/12/17 04/12/17 07:00 15:00 23:00 07:00 15:00 23:00 Intake Total 195 ml 1200 ml 0 ml 480 ml Balance 195 ml 1200 ml 0 ml 480 ml Intake Oral 195 ml 1200 ml 0 ml 480 ml # Voids 2 2 1 Result Diagram: 04/11/1793904/11/17939 Objective Remarks awake and alert lungs clear regular rhythm abdomen soft, extremities no edema skin- not as dry A/P Assessment and Plan 61 years old male Depression- psychaitry ff KCKI- stage 3.- 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 ff BMP periodicall. History of hypertension. better but not ideal increase procardia to 60 mg XL daily Dry skin- Lachydrin bid- continue anemia- mild- likely of chronic renal disease check iron stuidies in am encourage patient to up and ambulate Marti Shelby MD Apr 12, 2017 13:56
[2017-04-12] MEDS ORDERED: cloNIDine HCL 0.1 MG TAB PO PRN (14:15)
--- NOTE | 2017-04-12 16:08 | HHI.PYPN ---
Subjective Remarks Patient was seen and case discussed with nursing. Pt is being followed by the medical team for HTN. He remains disheveled, apathetic with poor eye contact. States he had SI which are now resolved but remains hopeless/depressed. Psychomotor retardation, guarded. Compliant with medication and tolerating it well. Mental Status Examination Appearance: Dirty, Disheveled Consciousness: Lethargic Orientation: x4 Motor Activity: Normal gait Speech: Slow, Speech impediment Language: Adequate Fund of Knowledge: Inadequate Attention and Concentration: Easily Distracted Memory: Impaired Mood: Irritable Affect: Irritable Thought Process & Associations: Intact Thought Content: Appropriate Hallucination Type: None Delusion Type: None Suicidal Ideation: No Suicidal Plan: No Suicidal Intention: No Homicidal Ideation: No Homicidal Plan: No Homicidal Intention: No Insight: Adequate Judgment: Adequate Results Vitals/IOs Vital Signs Date Time Temp Pulse Resp B/P (MAP) Pulse Ox O2 Delivery O2 Flow Rate FiO2 04/12/17 05:07 98.0 77 18 166/99 (121) 96 04/10/17 06:43 Room Air Intake and Output 04/12/17 04/12/17 04/13/17 08:00 16:00 00:00 Intake Total 120 ml 360 ml Balance 120 ml 360 ml Assessment & Plan Problem List: (1) Adjustment disorder with depressed mood ICD Codes: F43.21 - Adjustment disorder with depressed mood Assessment & Plan Continue current treatment plan Justification for Cont. Inpt. Patient would decompensate in a less restricting setting. Timo Borges DO Apr 12, 2017 16:08
--- NOTE | 2017-04-12 17:58 | RADRPT ---
EXAM DATE/TIME: 04/12/2017 16:54 [facility] COMPARISON: CT ABDOMEN & PELVIS W/O CONTRAST, November 01, 2012, 17:54. INDICATIONS : Increased BUN/creatinine. MEDICAL HISTORY : Hypercholesterolemia. Arthritis. Hepatitis C. Seizures. Head trauma. HTN. COPD. GERD. Depression. Anx iety. ESBL+E.Coli. SURGICAL HISTORY : Orthopedic surgery; left wrist, face fractures, and collar bone. Left hip replacement. Left arm fusio n. Blood transfusions. ENCOUNTER: Initial ACUITY: 1 day PAIN SCORE: 0/10 LOCATION: Bilateral flank MEASUREMENTS: RIGHT KIDNEY: 9.2 x 3.5 x 4.3 cm LEFT KIDNEY: 9.9 x 3.8 x 4.9 cm FINDINGS: RIGHT KIDNEY: Renal cortex is normal in thickness with increased echotexture. No hydronephrosis, stone, or mass. There is a simple cyst at the lower pole measuring 6 mm. LEFT KIDNEY: Renal cortex is normal in thickness with increased echotexture. No hydronephrosis, stone, or mass. BLADDER: Within normal limits given the degree of distension. CONCLUSION: Abnormal increased echotexture of the renal parenchyma indicating medical renal disease. There is no hydronephrosis. Tonny Cobos MD on April 12, 2017 at 17:54 Board Certified Radiologist. This report was verified electronically.
[2017-04-12 18:00] VITALS: BP 156/88; PULSE 78; RESP 18; TEMP 97.9; O2SAT 97
[2017-04-12] MEDS: hydrOXYzine HCL 50 MG TAB PO PRN (20:50)
[2017-04-13 06:00] LABS: TRANSFERRIN IRON PROFILE 223 MG/DL (200-360)
[2017-04-13 06:02] LABS: FERRITIN 274 NG/ML (26-388)
[2017-04-13 06:32] VITALS: BP 168/100; PULSE 74; RESP 17; TEMP 98.1; O2SAT 95
[2017-04-13] MEDS: SERTRALINE HCL 50 MG TAB PO SCH (10:36)
[2017-04-13] MEDS: NIFEdipine 30 MG SUSTAINED RELEASE TAB PO SCH (10:36)
[2017-04-13] MEDS: LACTIC ACID (AMMONIUM LACTATE) 12% LOTION 225 GM BTL TOPICAL SCH ×2 (10:36→20:47)
[2017-04-13 11:12] VITALS: BP 145/94; PULSE 68
--- NOTE | 2017-04-13 12:21 | HHI.PR ---
Subjective Remarks talked more today and more conversant but affect blunt now recalled he was on 2 kinds of BP meds but does not recall the name ate 100% denies any pain Objective Vitals Vital Signs Date Time Temp Pulse Resp B/P (MAP) Pulse Ox O2 Delivery O2 Flow Rate FiO2 04/13/17 06:32 98.1 74 17 168/100 (122) 95 04/12/17 18:00 97.9 78 18 156/88 (110) 97 I/O 04/12/17 04/12/17 04/12/17 04/13/17 04/13/17 04/13/17 07:00 15:00 23:00 07:00 15:00 23:00 Intake Total 0 ml 480 ml 1180 ml Balance 0 ml 480 ml 1180 ml Intake Oral 0 ml 480 ml 1180 ml # Voids 1 4 3 # Bowel Movements 1 Result Diagram: 04/11/17 0940 04/11/17 0940 Imaging Last Impressions Renal Ultrasound 04/12/17 0000 Signed Impressions: Service Date/Time: Wednesday, April 12, 2017 16:54 - CONCLUSION: Abnormal increased echotexture of the renal parenchyma indicating medical renal disease. There is no hydronephrosis. 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 ff BMP periodically History of hypertension. better but not ideal Procardia to 60 mg XL daily add hydralazine 25 mg po tid Dry skin- Lachydrin bid- continue anemia- mild- likely of chronic renal disease check iron studies unremarkable encourage patient to up and ambulate Marti Shelby MD Apr 13, 2017 12:21
[2017-04-13] MEDS: hydrALAZINE HCL 25 MG TAB PO SCH ×2 (14:00→20:47)
--- NOTE | 2017-04-13 16:12 | HHI.PYPN ---
Subjective Remarks Patient was seen and case discussed with nursing. Continued to be managed by the medical team. Pt remains, flat, apathetic and hypoverbal with poor eye contact. Vague during the interview, SI: 'comes and goes." Tolerating medication well. Mental Status Examination Appearance: Dirty, Disheveled Consciousness: Lethargic Orientation: x4 Motor Activity: Normal gait Speech: Slow, Speech impediment Language: Adequate Fund of Knowledge: Inadequate Attention and Concentration: Easily Distracted Memory: Impaired Mood: Irritable Affect: Blunt Thought Process & Associations: Intact Thought Content: Appropriate Hallucination Type: None Delusion Type: None Suicidal Ideation: Yes ("comes and goes") Suicidal Plan: No Suicidal Intention: No Homicidal Ideation: No Homicidal Plan: No Homicidal Intention: No Insight: Adequate Judgment: Adequate Results Labs Test 04/13/17 05:20 Iron Level 66 MCG/DL Total Iron Binding Capacity 312 MCG/DL Percent Iron Saturation 21.1 % Ferritin 274 NG/ML Vitals/IOs Vital Signs Date Time Temp Pulse Resp B/P (MAP) Pulse Ox O2 Delivery O2 Flow Rate FiO2 04/13/17 06:32 98.1 74 17 168/100 (122) 95 04/10/17 06:43 Room Air Assessment & Plan Problem List: (1) Adjustment disorder with depressed mood ICD Codes: F43.21 - Adjustment disorder with depressed mood Assessment & Plan Continue medical tx as indicated Justification for Cont. Inpt. Pt would decompensate in a less restrictive setting Timo Borges DO Apr 13, 2017 16:12
[2017-04-13 18:00] VITALS: BP 146/87; PULSE 66; RESP 18; TEMP 98.4; O2SAT 95
[2017-04-13] MEDS: hydrOXYzine HCL 50 MG TAB PO PRN (20:47)
[2017-04-14] MEDS: hydrALAZINE HCL 25 MG TAB PO SCH ×3 (05:47→20:50)
[2017-04-14 06:26] VITALS: BP 141/81; PULSE 71; RESP 17; TEMP 97.3; O2SAT 97
[2017-04-14] MEDS: LACTIC ACID (AMMONIUM LACTATE) 12% LOTION 225 GM BTL TOPICAL SCH ×2 (09:00→20:50)
[2017-04-14] MEDS: NIFEdipine 30 MG SUSTAINED RELEASE TAB PO SCH (09:16)
[2017-04-14] MEDS: SERTRALINE HCL 50 MG TAB PO SCH (09:16)
--- NOTE | 2017-04-14 12:58 | PD.TTN ---
Patient Problems 1. Discharge planning 2. Medication compliance 3. Knowledge deficit 4. Lack of coping skills Progress Toward Goals Provider Present: Dr. Emilee Hill Provider Input: 04/14/2017 per doctor patient is still very depressed with SI, patient's medication are bieng adjusted Nurse(s) Present: Ricardo Samuel, TRISH Nurse(s) Input: Per RN, patient is taking medcation and eating meals, continues to express thoughts of self harm and requires coaching with [facility]'s Psychiatric Counselors Present: DEBRA Rolle Psych Therapist Input: Counselor has faxed JAIL packages; work with patient on ways to redirect self harm thoughts and lift his mood, patient is encouraged with group and activity participation Group Spec/RT/OT/CARLISLE Present: Serge Adames OT Group Spec/RT/OT/CARLISLE Input: Per OT, patient is not attending groups or activities Documentation Scribe: DEBRA Rolle Sandra LMHC Apr 14, 2017 12:58
--- NOTE | 2017-04-14 14:27 | HHI.PR ---
Subjective Remarks showered today he smiled denies any pain Objective Vitals Vital Signs Date Time Temp Pulse Resp B/P (MAP) Pulse Ox O2 Delivery O2 Flow Rate FiO2 04/14/17 06:26 97.3 71 17 141/81 (101) 97 04/13/17 18:00 98.4 66 18 146/87 (106) 95 I/O 04/13/17 04/13/17 04/13/17 04/14/17 04/14/17 04/14/17 07:00 15:00 23:00 07:00 15:00 23:00 Intake Total 2400 ml 1200 ml Balance 2400 ml 1200 ml Intake Oral 2400 ml 1200 ml # Voids 3 3 2 Result Diagram: 04/11/17 0940 04/11/17 0940 Imaging Last Impressions Renal Ultrasound 04/12/17 0000 Signed Impressions: Service Date/Time: Wednesday, April 12, 2017 16:54 - CONCLUSION: Abnormal increased echotexture of the renal parenchyma indicating medical renal disease. There is no hydronephrosis. Tonny Cobos MD Objective Remarks awake and alert, interacted more today lungs clear regular rhythm abdomen soft, extremities no edema skin- not as dry A/P Assessment and Plan 61 years old male Depression- psychaitry ff KCKI- stage 3.- 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 ff BMP periodically History of hypertension.- improved Procardia to 60 mg XL daily added hydralazine 25 mg po tid continue to monitor and adjust Dry skin- Lachydrin bid- continue anemia- mild- likely of chronic renal disease check iron studies unremarkable encourage patient to up and ambulate Marti Shelby MD Apr 14, 2017 14:27
--- NOTE | 2017-04-14 16:27 | HHI.PYPN ---
Subjective Remarks Patient seen follow, chart review. Discussion with nursing staff reported the patient has refused to shower, requesting Percocet but has been med compliant. Patient found lying in hospital bed, more cooperative interview today. Patient states that he has been "not too good" but reports feeling not as sad or depressed as he did initially. Patient denies any SI recently, reports eating drinking well, denies any perceptual disturbances or delusions at this time. Patient continues to be noted to be disheveled was encouraged to shower maintain personal hygiene which he agreed to. Review of Systems Except as stated in HPI: all other systems reviewed are Neg Mental Status Examination Appearance: Dirty, Disheveled Consciousness: Lethargic Orientation: x4 Motor Activity: Normal gait Speech: Speech impediment Language: Adequate Fund of Knowledge: Inadequate Attention and Concentration: Easily Distracted Memory: Impaired Mood: Irritable (less so today) Affect: Blunt (slightly more reactive today) Thought Process & Associations: Intact Thought Content: Appropriate Hallucination Type: None Delusion Type: None Suicidal Ideation: No Suicidal Plan: No Suicidal Intention: No Homicidal Ideation: No Homicidal Plan: No Homicidal Intention: No Insight: Fair Judgment: Impulsive Results Vitals/IOs Vital Signs Date Time Temp Pulse Resp B/P (MAP) Pulse Ox O2 Delivery O2 Flow Rate FiO2 04/14/17 06:26 97.3 71 17 141/81 (101) 97 Intake and Output 04/14/17 04/14/17 04/15/17 08:00 16:00 00:00 Intake Total 1200 ml Balance 1200 ml Assessment & Plan Problem List: (1) Adjustment disorder with depressed mood ICD Codes: F43.21 - Adjustment disorder with depressed mood Assessment & Plan Patient at this time continues to report depressed mood but denies any suicidal ideations today. Patient noted to be more engaging reactive during interview but continues to be noted to be very disheveled encouraged to shower maintain hygiene. Patient noted to have some improvement, continue current treatment for now. Continue to encourage patient to maintain personal hygiene and participate in groups and activities. Discharge planning in progress Justification for Cont. Inpt. At risk for further decompensation if at lower level of care Discharge Planning Patient may be discharged to homeless care home once psychiatric stable. Boby Hill MD Apr 14, 2017 16:27
[2017-04-14 18:10] VITALS: BP 139/83; PULSE 74; RESP 18; TEMP 97.6; O2SAT 96
[2017-04-14] MEDS: hydrOXYzine HCL 50 MG TAB PO PRN (20:50)
[2017-04-15] MEDS: hydrALAZINE HCL 25 MG TAB PO SCH ×3 (06:00→20:45)
[2017-04-15 06:01] VITALS: BP 150/82; PULSE 65; RESP 18; TEMP 97.8; O2SAT 99
--- NOTE | 2017-04-15 09:15 | HHI.PYPN ---
Subjective Remarks Patient seen for follow up, chart reviewed. Discussion with staff reported the patient continues to be seclusive, quiet but did bathe yesterday. Patient found lying in hospital bed , superficial cooperative interview today. Patient continues to be noted to be very guarded but interactive and not irritable as he did initially. Patient states that his mood is "alright", denies feeling sad and depressed recently reports sleeping well, eating and drinking well and the positive bowel moment. Patient denies any suicidal ideations at this time area patient reports tolerating medications well without adverse drug reactions. Patient agrees to have assistance and shaving and clipping his nails today. Patient reports not having any social support here in [place] states that all his family and friends are back in [place]. Review of Systems Except as stated in HPI: all other systems reviewed are Neg Mental Status Examination Appearance: Appropriate Consciousness: Alert Orientation: x4 Motor Activity: Normal gait Speech: Unremarkable, Other (heavy Bostonian accent) Language: Adequate Fund of Knowledge: Inadequate Attention and Concentration: Easily Distracted Memory: Impaired Mood: Other ("alright") Affect: Blunt (slightly more reactive today) Thought Process & Associations: Intact Thought Content: Appropriate Hallucination Type: None Delusion Type: None Suicidal Ideation: No Suicidal Plan: No Suicidal Intention: No Homicidal Ideation: No Homicidal Plan: No Homicidal Intention: No Insight: Fair Judgment: Impulsive Results Vitals/IOs Vital Signs Date Time Temp Pulse Resp B/P (MAP) Pulse Ox O2 Delivery O2 Flow Rate FiO2 04/15/17 06:01 97.8 65 18 150/82 (104) 99 Intake and Output 04/15/17 04/15/17 04/15/17 07:59 15:59 23:59 Intake Total 360 ml Balance 360 ml Assessment & Plan Problem List: (1) Adjustment disorder with depressed mood ICD Codes: F43.21 - Adjustment disorder with depressed mood Assessment & Plan Patient at this time reports improved mood denied any depressive symptoms nor having suicidal ideations recently. We'll continue current treatment for now treatment team currently planning for outpatient services as well as referral to possibly homeless fdc as patient has no family or friends which she can rely on for support at this time. Discharge planning in progress. Justification for Cont. Inpt. At risk for further decompensation if at lower level of care Discharge Planning Patient to be referred to homeless fdc upon discharge. Boby Hill MD Apr 15, 2017 09:15
[2017-04-15 09:40] VITALS: BP 160/87; PULSE 68
[2017-04-15] MEDS: NIFEdipine 30 MG SUSTAINED RELEASE TAB PO SCH (09:40)
[2017-04-15] MEDS: SERTRALINE HCL 50 MG TAB PO SCH (09:40)
[2017-04-15] MEDS: LACTIC ACID (AMMONIUM LACTATE) 12% LOTION 225 GM BTL TOPICAL SCH ×2 (09:42→20:45)
--- NOTE | 2017-04-15 13:18 | HHI.PR ---
Subjective Remarks pleasant and cooperative no complains BP reviewed- better but not ideal- Objective Vitals Vital Signs Date Time Temp Pulse Resp B/P (MAP) Pulse Ox O2 Delivery O2 Flow Rate FiO2 04/15/17 09:40 68 160/87 (111) 04/15/17 06:01 97.8 65 18 150/82 (104) 99 04/14/17 18:10 97.6 74 18 139/83 (101) 96 I/O 04/14/17 04/14/17 04/14/17 04/15/17 04/15/17 04/15/17 07:00 15:00 23:00 07:00 15:00 23:00 Intake Total 1200 ml 960 ml 120 ml 600 ml Balance 1200 ml 960 ml 120 ml 600 ml Intake Oral 1200 ml 960 ml 120 ml 600 ml # Voids 2 1 2 Result Diagram: 04/11/17 0940 04/11/17 0940 Imaging Last Impressions Renal Ultrasound 04/12/17 0000 Signed Impressions: Service Date/Time: Wednesday, April 12, 2017 16:54 - CONCLUSION: Abnormal increased echotexture of the renal parenchyma indicating medical renal disease. There is no hydronephrosis. Tonny Cobos MD Objective Remarks awake and alert, pleasant and very interactive lungs clear regular rhythm abdomen soft, extremities no edema skin- not as dry A/P Assessment and Plan 61 years old male Depression- psychaitry ff KCKI- stage 3.- 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 ff BMP periodically History of hypertension.- improved Procardia to 60 mg XL daily hydralazine 25 mg po tid continue to monitor and adjust Dry skin- Lachydrin bid- continue anemia- mild- likely of chronic renal disease iron studies unremarkable encourage patient to up and ambulate- brighter disposition will nee a PCP to ff up with for his HTN and CKD Marti Shelby MD Apr 15, 2017 13:18
--- NOTE | 2017-04-15 15:31 | RADRPT ---
EXAM DATE/TIME: 04/15/2017 14:52 [facility] COMPARISON: No previous studies available for comparison. INDICATIONS : Evaluate for communicable disease. Rule out TB. MEDICAL HISTORY : Hypercholesterolemia. Arthritis. Hepatitis C. Seizures. Head trauma. HTN. COPD. GERD. Depression. Anx iety. ESBL+E.Coli. SURGICAL HISTORY : Orthopedic surgery; left wrist, face fractures, and collar bone. Left hip replacement. Left arm fusio n. Blood transfusions. ENCOUNTER: Subsequent ACUITY: 4 - 6 days PAIN SCORE: 0/10 LOCATION: chest FINDINGS: PA and lateral views of the chest demonstrate the lungs to be symmetrically aerated without evidence of mass, infiltrate or effusion. The cardiomediastinal contours are unremarkable. Osseous structure s are intact. Left clavicular orthopedic plate. Degenerative thoracic spine. CONCLUSION: No acute disease. Dayne Calle Jr., MD on April 15, 2017 at 15:28 Board Certified Radiologist. This report was verified electronically.
[2017-04-15 18:00] VITALS: BP 150/83; PULSE 73; RESP 18; TEMP 97.8; O2SAT 97
[2017-04-16 06:00] VITALS: BP 150/88; PULSE 80; RESP 19; TEMP 98.1; O2SAT 96
[2017-04-16] MEDS: hydrALAZINE HCL 25 MG TAB PO SCH (06:23)
[2017-04-16] MEDS: LACTIC ACID (AMMONIUM LACTATE) 12% LOTION 225 GM BTL TOPICAL SCH (08:31)
[2017-04-16] MEDS: NIFEdipine 30 MG SUSTAINED RELEASE TAB PO SCH (08:31)
[2017-04-16] MEDS: SERTRALINE HCL 50 MG TAB PO SCH (08:31)
[2017-04-16] MEDS ORDERED: Lactic Acid 12% Lotion TOPICAL (11:02)
[2017-04-16] MEDS ORDERED: HYDR-3799 PO (11:02)
[2017-04-16] MEDS ORDERED: ZOLO50TA PO (11:02)
[2017-04-16] MEDS ORDERED: NIFE60TA58 PO (11:02)
--- NOTE | 2017-04-16 14:29 | HHI.DS ---
Psychiatry Discharge Summary Inpatient Psychiatric care?: Yes Advance Directive: No Reason Not Provided: pt states he would prefere to be let go Mental Health AdvanceDirective: No Health Care Proxy: No Admission Admission Date Apr 10, 2017 at 16:12 Admission Diagnosis: (1) Adjustment disorder with depressed mood ICD Code: F43.21 - Adjustment disorder with depressed mood Brief History 61-year-old male who has apparently been to this emergency department before, presents under a Edouard act that indicates he is suicidal. According to reports , the patient was Edouard acted by police. He indicated he was homeless and did not have the will to live. When initially seen in this emergency department he denied making suicidal statements and then said he did not mean to report suicidality. However, he was described as a poor historian and unable to provide consistent history regarding his physical illnesses. Apparently he has superficial injury to his hands with lesions, shortness of breath, walks with a cane or crutch, remains homeless and there is some history of traumatic brain injury. At this time, the patient does admit to symptoms of depressed mood, anhedonia, feelings of hopelessness or helplessness, not having the will to live (suicidal ) diminished energy, diminished self-esteem, social withdrawal, problems with concentration and memory, etc. He reportedly drinks alcohol on occasion. His toxicology screen was negative for both alcohol and drugs on the occasion of this admission. The patient called 911 himself, asking for help. The patient reportedly described multiple ways in which she could kill himself to law enforcement. The patient denies having family support. Tobacco Use In Past 30 Days: 5 or More Cigarettes/Day Alcohol Use: 2-3 Times Per Week Hospital Course Patient is a 60 y/o man, single, homeless, unemployed with past psychiatric history of depression, alcohol use disorder, no prior psychiatric admissions, no prior suicide attempts or self injurious behavior who was admitted under Edouard Act for suicidal ideations and statements in the context of homelessness and not wanting to live. Patient was admitted to the inpatient psychiatry unit for further evaluation and management. Patient was started on CIWA protocol for possible alcohol withdrawal, started on Sertraline 25mg PO BID and titrated up to 50mg PO daily for depression. Patient noted to be guarded throughout hospitalization but had improvement of mood as he was endorsing not feeling as depressed as compared to on admission. He denied suicidal ideation prior to discharge, did not have any signs or symptoms of withdrawal. Upon discharge patient stated feeling alright, was motivated to continue treatment and attend outpatient follow up appointments for continuity of care. Patient denies SI, HI, AVH or delusions. Supportive psychotherapy provided. Patient advised to return to ED or call 911 in case of emergency. Patient agrees with plan. Results Blood Pressure 150 / 88 Vital Signs Date Time Temp Pulse Resp B/P (MAP) Pulse Ox O2 Delivery O2 Flow Rate FiO2 04/16/17 06:00 98.1 80 19 150/88 (108) 96 Laboratory Results Test 04/11/17 09:40 Cholesterol Level 118 MG/DL (120-200) HDL Cholesterol 55.1 MG/DL (40.0-60.0) Hemoglobin A1c 5.5 % (4.3-6.0) LDL Cholesterol 44 MG/DL (0-99) Triglycerides Level 93 MG/DL (42-150) Summary of Procedures None Imaging Last Impressions Chest X-Ray 04/15/17 0000 Signed Impressions: Service Date/Time: Saturday, April 15, 2017 14:52 - CONCLUSION: No acute disease. Dayne Calle Jr., MD Renal Ultrasound 04/12/17 0000 Signed Impressions: Service Date/Time: Wednesday, April 12, 2017 16:54 - CONCLUSION: Abnormal increased echotexture of the renal parenchyma indicating medical renal disease. There is no hydronephrosis. Tonny Cobos MD Pending results at discharge: No Medications # of Antipsychotic meds at D/C: 0 Approp Antipsych med options 1 - Minimum of three failed multiple trials of monotherapy. 2 - Documented plan to taper to monotherapy due to previous use of multiple meds OR cross-taper in progress at D/C. 3 - Documentation of augmentation of Clozapine. 4 - Justification other than those listed in allowable values 1-3, document here : Discharge Discharge Date: Apr 16, 2017 Discharge Diagnosis: (1) Adjustment disorder with depressed mood ICD Code: F43.21 - Adjustment disorder with depressed mood Pt Condition on Discharge: Stable Discharge Disposition: ACLF/BABATUNDE Discharge Instructions Diet Instructions: Heart Healthy Diet Activities you can perform: Regular-No Restrictions Scheduled Appointment: Facility mental health provider Appointment Date: Apr 16, 2017 Appointment Time: 03:30pm. Discharge Time > 30 minutes Mental Status Examination Appearance: Appropriate Consciousness: Alert Orientation: x4 Motor Activity: Normal gait Speech: Unremarkable, Other (heavy Bostonian accent) Language: Adequate Fund of Knowledge: Inadequate Attention and Concentration: Adequate Memory: Impaired Mood: Other ("alright") Affect: Other (guarded) Thought Process & Associations: Intact Thought Content: Appropriate Hallucination Type: None Delusion Type: None Suicidal Ideation: No Suicidal Plan: No Suicidal Intention: No Homicidal Ideation: No Homicidal Plan: No Homicidal Intention: No Insight: Fair Judgment: Impulsive Discharge/Advance Care Plan Health Problems: (1) Adjustment disorder with depressed mood Goals to promote your health * To prevent worsening of your condition and complications * To maintain your health at the optimal level Directions to meet your goals Take your medications as prescribed Follow your dietary instruction Follow activity as directed Keep your appointments as scheduled Take your immunizations and boosters as scheduled If your symptoms worsen call your PCP, if no PCP go to Urgent Care Center or Emergency Room For 23/12 questions related to your inpatient stay or results of tests pending at discharge, please contact Dr. Boby Hill at Smoking is Dangerous to Your Health. Avoid second hand smoking Boby Hill MD Apr 16, 2017 14:29
== END 2017-04-16 12:20 | disposition home or self-care (01) | DRG 881 ==
LOC: NEPJ 19:22 → NEDA 04-10 16:12 → H4EA 04-10 18:05
PROVIDERS: ADMIT Student in an Organized Health Care Education/Training Program; ATTEND Student in an Organized Health Care Education/Training Program
DX: F43.21 Adjustment disorder with depressed mood (principal); R56.9 Unspecified convulsions; R45.851 Suicidal ideations; I12.9 Hypertensive chronic kidney disease with stage 1 through stage 4 chronic kidney disease, or unspecified chronic kidney disease; D64.9 Anemia, unspecified; S60.521A Blister (nonthermal) of right hand, initial encounter; J44.9 Chronic obstructive pulmonary disease, unspecified; M19.90 Unspecified osteoarthritis, unspecified site; Z87.820 Personal history of traumatic brain injury; Z59.0 Homelessness; B19.20 Unspecified viral hepatitis C without hepatic coma; N18.9 Chronic kidney disease, unspecified; K21.9 Gastro-esophageal reflux disease without esophagitis; L01.00 Impetigo, unspecified; F17.200 Nicotine dependence, unspecified, uncomplicated; Z96.642 Presence of left artificial hip joint; F41.9 Anxiety disorder, unspecified
CPT/HCPCS: 71020; 76775; 80053; 80061; 80307; 82306; 82607; 82728; 83036; 83540; 83550; 85025

== ENCOUNTER 2017-08-18 17:20 | Emergency (ER) | payer MEDICAID, OTHER ==
[~2017-08-18 17:20] MED LIST changes: +HYDR-3799 PO; +Lactic Acid 12% Lotion TOPICAL; +NIFE60TA58 PO; +ZOLO50TA PO
[2017-08-18 18:11] VITALS: BP 147/94; PULSE 77; RESP 16; TEMP 97.4; O2SAT 100
--- NOTE | 2017-08-18 19:00 | RADRPT ---
EXAM DATE/TIME: 08/18/2017 18:29 [facility] COMPARISON: No previous studies available for comparison. INDICATIONS : Trauma, fall. Laceration to right eyebrow. RADIATION DOSE: 56.35 CTDIvol (mGy) MEDICAL HISTORY : Seizures. Hypertension. Hepatitis C.ETOH Abuse. SURGICAL HISTORY : Craniotomy. ENCOUNTER: Initial ACUITY: 1 day PAIN SCALE: 3/10 LOCATION: cranial TECHNIQUE: Multiple contiguous axial images were obtained of the head. Using automated exposure control and adj ustment of the mA and/or kV according to patient size, radiation dose was kept as low as reasonably a chievable to obtain optimal diagnostic quality images. DICOM format image data is available electro nically for review and comparison. FINDINGS: There are fractures of the anterior and posterior méndez of the right maxillary sinus and lateral wall right orbit. Previous fixation left zygomatic arch and left maxillary sinus. Hemorrhage present in t he right maxillary sinus. No intracranial mass, hemorrhage or shift. Prior right temporal infarct, sm all. Chronic white matter ischemic changes similar to July 2015. CONCLUSION: 1. Right-sided facial fractures. 2. Stable cortical atrophy and chronic white matter changes and stable focal encephalomalacia right t emporal lobe. Truong Parra MD on August 18, 2017 at 18:54 Board Certified Radiologist. This report was verified electronically.
--- NOTE | 2017-08-18 19:02 | RADRPT ---
EXAM DATE/TIME: 08/18/2017 18:29 [facility] COMPARISON: No previous studies available for comparison. INDICATIONS : Trauma, fall. RADIATION DOSE: 14.84 CTDIvol (mGy) MEDICAL HISTORY : Hypertension. Seizures. Hepatitis C.ETOH Abuse. SURGICAL HISTORY : None. ENCOUNTER: Initial ACUITY: 1 day PAIN SCALE: 0/10 LOCATION: neck TECHNIQUE: Volumetric scanning of the cervical spine was performed. Multiplanar reconstructions in the sagittal, coronal and oblique axial planes were performed. Using automated exposure control and adjustment o f the mA and/or kV according to patient size, radiation dose was kept as low as reasonably achievable to obtain optimal diagnostic quality images. DICOM format image data is available electronically f or review and comparison. FINDINGS: VERTEBRAE: Normal vertebral body height. ALIGNMENT: No evidence of subluxation. C2-C3: The bony spinal canal is normal in size. No evidence of disc bulge or herniation. The neural forami na are bilaterally patent. C3-C4: The bony spinal canal is normal in size. No evidence of disc bulge or herniation. The neural forami na are bilaterally patent. C4-C5: The bony spinal canal is normal in size. No evidence of disc bulge or herniation. The neural forami na are bilaterally patent. C5-C6: The bony spinal canal is normal in size. No evidence of disc bulge or herniation. The neural forami na are bilaterally patent. C6-C7: The bony spinal canal is normal in size. No evidence of disc bulge or herniation. The neural forami na are bilaterally patent. C7-T1: The bony spinal canal is normal in size. No evidence of disc bulge or herniation. The neural forami na are bilaterally patent. CONCLUSION: 1. Moderate degenerative disc disease and facet arthropathy in cervical spine. No acute bony abnormal ity. Truong Parra MD on August 18, 2017 at 18:57 Board Certified Radiologist. This report was verified electronically.
--- NOTE | 2017-08-18 19:04 | RADRPT ---
EXAM DATE/TIME: 08/18/2017 18:29 [facility] COMPARISON: No previous studies available for comparison. INDICATIONS : Trauma, fall. Laceration to right eyebrow. RADIATION DOSE: 21.96 CTDIvol (mGy) MEDICAL HISTORY : Seizures. Hypertension. Hepatitis C.ETOH Abuse. SURGICAL HISTORY : None. ENCOUNTER: Initial ACUITY: 1 day PAIN SCORE: 5/10 LOCATION: Right facial TECHNIQUE: Volumetric scanning of the facial bones was performed. Using automated exposure control and adjustme nt of the mA and/or kV according to patient size, radiation dose was kept as low as reasonably achiev able to obtain optimal diagnostic quality images. DICOM format image data is available electronicall y for review and comparison. FINDINGS: There are fractures of the right anterior and posterior maxillary sinus méndez extending into the medi al maxillary sinus. Right lateral orbital wall is fractured. There is right-sided facial soft tissue swelling. There is hemorrhage in the right maxillary sinus. There is a mildly displaced lateral floor fracture. Nasal bone fractures also present. No evidence fo r entrapment of the right orbit. CONCLUSION: 1. Fractures of the right maxillary sinus, right lateral orbital wall and bilateral nasal bones. Prev ious fixation left maxillary sinus and left zygomatic arch. 2. Right orbital floor fracture without evidence for entrapment. Truong Parra MD on August 18, 2017 at 18:59 Board Certified Radiologist. This report was verified electronically.
[2017-08-18 22:31] VITALS: BP 175/104; PULSE 85; RESP 18; O2SAT 100
[2017-08-18] MEDS ORDERED: CLIN300C5 PO (22:42)
--- NOTE | 2017-08-18 22:42 | PD ---
HPI Chief Complaint: Head Injury Time Seen by Provider: 22:10 Travel History International Travel<30 days: No Contact w/Intl Traveler<30days: No Traveled to known affect area: No History of Present Illness HPI This 62-year-old male presents to the emergency department complaining of facial pain. He was drinking tripped and fell and landed on the right side of his face. He complains of pain and tenderness to the face. This happened earlier today. History Past Medical History Medical History: Denies Significant Hx Social History Alcohol Use: Yes (DAILY) Tobacco Use: Yes (1/2 ppd ) Allergies-Medications (Allergen,Severity, Reaction): Coded Allergies: cephalexin (Verified Allergy, Severe, SWELLING/RASH, 08/18/17) codeine (Verified Allergy, Severe, Swelling, 08/18/17) *MDRO Multi-Drug Resistant Organism (Verified Adverse Reaction, Unknown, ) ESBL+E.Coli (urine-10/2015) Reported Meds & Prescriptions Reported Meds & Active Scripts Active Clindamycin (Clindamycin HCl) 300 Mg Cap 300 Mg PO TID Review of Systems Except as stated in HPI: all other systems reviewed are Neg Physical Exam Narrative GENERAL: Disheveled 62-year-old man, no acute distress per SKIN: Focused skin assessment warm/dry. HEAD: Atraumatic. Normocephalic. EYES: Pupils equal and round. No scleral icterus. No injection or drainage. ENT: No nasal bleeding or discharge. Laceration to the right brow with dried blood crusting. Little bit of facial swelling. Tenderness to area as well. NECK: Trachea midline. No JVD. CARDIOVASCULAR: Regular rate and rhythm. No murmur appreciated. RESPIRATORY: No accessory muscle use. Clear to auscultation. Breath sounds equal bilaterally. GASTROINTESTINAL: Abdomen soft, non-tender, nondistended. Hepatic and splenic margins not palpable. MUSCULOSKELETAL: No obvious deformities. NEUROLOGICAL: Awake and alert. No obvious cranial nerve deficits. Motor grossly within normal limits. Normal speech. Data Data Last Documented VS Vital Signs Date Time Temp Pulse Resp B/P (MAP) Pulse Ox O2 Delivery O2 Flow Rate FiO2 08/18/17 22:31 80 18 100 08/18/17 22:31 175/104 (127) 08/18/17 18:[address] Brain W/O Iv Contrast(Rout) (08/18/17 ) Ct Cerv Spine W/O Contrast (08/18/17 ) Ct Facial Bones W/O Iv Cont (08/18/17 ) [facility] Medical Decision Making Medical Screen Exam Complete: Yes Emergency Medical Condition: Yes Interpretation(s) CT head: Right-sided facial fractures. Stable cortical atrophy and chronic white matter changes and stable focal encephalomalacia in the right temporal lobe. C-spine CT: Moderate degenerative disc disease and facet arthropathy in the cervical spine. No acute bony abnormality. Maxillofacial CT: Fracture of the right maxillary sinus, right lateral orbital wall, bilateral nasal bones. Previous fixation of the left maxillary sinus and left zygomatic arch. Right orbital floor fracture without evidence of entrapment. Differential Diagnosis Head injury, laceration, facial injury, other Narrative Course Medical decision making 62-year-old man trip and fall, intoxication, some facial fractures and a small laceration. Patient states that he "anin't gettin nothing done". We cleaned his wound. We set up to repair the small area of laceration patient is refusing any further evaluation. Does not want to follow-up with the surgeon regarding his facial fractures. He agrees to return for any new or worsening symptoms. Does not appear angry or frustrated with staff, but seems adamant that he does not want any medical care. Diagnosis Primary Impression: Facial laceration Additional Impression: Facial bone fracture Additional Instructions: Avoid alcohol. Take antibiotics as prescribed. Return to the emergency department for any new or worsening symptoms. Keep wound clean and dry. Apply antibiotic ointment to wound twice daily. Do not clear nose. If you sneeze, sneeze with your mouth open. Med/Other Pt SpecificInfo: Prescription(s) given Scripts Clindamycin (Clindamycin) 300 Mg Cap 300 MG PO TID for Infection, #21 CAP 0 Refills Prov: Stephan De Los Santos MD 08/18/17 Disposition: 01 DISCHARGE HOME Condition: Stable Stephan De Los Santos MD Aug 18, 2017 22:42
== END 2017-08-18 23:33 | disposition home or self-care (01) ==
LOC: NED 17:20 → NEPD 23:33
DX: S02.19XA Other fracture of base of skull, initial encounter for closed fracture (principal); S02.81XA Fracture of other specified skull and facial bones, right side, initial encounter for closed fracture; S02.2XXA Fracture of nasal bones, initial encounter for closed fracture; S01.111A Laceration without foreign body of right eyelid and periocular area, initial encounter; M50.30 Other cervical disc degeneration, unspecified cervical region; F17.200 Nicotine dependence, unspecified, uncomplicated; W01.0XXA Fall on same level from slipping, tripping and stumbling without subsequent striking against object, initial encounter; Z88.5 Allergy status to narcotic agent; Z88.8 Allergy status to other drugs, medicaments and biological substances
CPT/HCPCS: 70450; 70486; 72125; 99283

== ENCOUNTER 2017-10-10 17:38 | Emergency (ER) | payer MEDICAID ==
[~2017-10-10] VITALS: Ht 172.7 cm; Wt 68.0 kg
[~2017-10-10 17:38] MED LIST changes: -BACT800T5 PO; +CLIN300C5 PO; -HYDR-3799 PO; -Lactic Acid 12% Lotion TOPICAL; -NIFE60TA58 PO; -ZOLO50TA PO
[2017-10-10 17:48] VITALS: BP 118/76; PULSE 104; RESP 20; TEMP 98; O2SAT 98
== END 2017-10-10 20:04 | disposition left against medical advice (07) ==
LOC: NED 17:38
DX: Z03.89 Encounter for observation for other suspected diseases and conditions ruled out (principal)
CPT/HCPCS: 99281

== ENCOUNTER 2017-10-24 14:25 | Emergency (ER) | payer MEDICAID ==
[~2017-10-24] VITALS: Ht 185.4 cm; Wt 710.0 kg
[2017-10-24 14:54] VITALS: BP 130/87; PULSE 70; RESP 16; TEMP 98.6; O2SAT 97
--- NOTE | 2017-10-24 17:09 | PD ---
HPI Chief Complaint: Fall Time Seen by Provider: 15:01 Travel History International Travel<30 days: No Contact w/Intl Traveler<30days: No Traveled to known affect area: No History of Present Illness HPI Patient is a 62-year-old male who comes in after he curb and hit his head. He admits to drinking today. He has been here multiple times for intoxication and falls. He remembers the event. He says he is fine and has no complaints. He denies any other injuries. He denies blurred vision, nausea or vomiting. He wants to go. Severity is mild. PFSH Past Medical History Arthritis: Yes Autoimmune Disease: No Blood Disorders: No Anxiety: Yes Depression: Yes Cancer: No Cardiovascular Problems: Yes (HTN) COPD: Yes Diabetes: No Diminished Hearing: No Endocrine: No Gastrointestinal Disorders: No GERD: Yes Genitourinary: No Hepatitis: Yes (HEP C) Hypertension: Yes Immune Disorder: No Musculoskeletal: Yes (arthritis) Neurologic: Yes (dizziness) Psychiatric: No Reproductive: No Respiratory: Yes Immunizations Current: Yes Seizures: Yes Tetanus Vaccination: < 5 Years Influenza Vaccination: No Past Surgical History AICD: No Arteriovenous Shunt: No Body Medical Devices: titanium in body Joint Replacement: Yes (left hip replacement, left arm fusion,) Pacemaker: No Other Surgery: Yes (TITANIUM HIPS,BACK, ANKLES) Social History Alcohol Use: Yes (DAILY) Tobacco Use: Yes (1/2 ppd ) Substance Use: No Allergies-Medications (Allergen,Severity, Reaction): Coded Allergies: cephalexin (Verified Allergy, Severe, SWELLING/RASH, 10/24/17) codeine (Verified Allergy, Severe, Swelling, 10/24/17) *MDRO Multi-Drug Resistant Organism (Verified Adverse Reaction, Unknown, ) ESBL+E.Coli (urine-10/2015) Reported Meds & Prescriptions Reported Meds & Active Scripts Active No Active Prescriptions or Reported Medications Review of Systems Except as stated in HPI: all other systems reviewed are Neg General / Constitutional: No: Fever, Chills Eyes: No: Blurred Vision HENT: No: Headaches, Lightheadedness Cardiovascular: No: Chest Pain or Discomfort Respiratory: No: Shortness of Breath Gastrointestinal: No: Nausea, Vomiting Skin: No Rash, No Change in Pigmentation Neurologic: No: Weakness, Dizziness, Syncope Physical Exam Narrative GENERAL: Awake and alert, no acute distress. SKIN: Superficial laceration above the right eye, slow oozing of blood. HEAD: Atraumatic. Normocephalic. EYES: Pupils equal and round. No scleral icterus. Extraocular movements intact. ENT: Mucous membranes pink and moist. NECK: Trachea midline. No JVD. No cervical spine tenderness. CARDIOVASCULAR: Regular rate and rhythm. No murmur appreciated. RESPIRATORY: No accessory muscle use. Clear to auscultation. Breath sounds equal bilaterally. GASTROINTESTINAL: Abdomen soft, non-tender, nondistended. MUSCULOSKELETAL: No obvious deformities. No clubbing. No cyanosis. No edema. NEUROLOGICAL: Awake and alert. No obvious cranial nerve deficits. Motor grossly within normal limits. Normal speech. PSYCHIATRIC: Appropriate mood and affect; insight and judgment normal. Data Data Last Documented VS Vital Signs Date Time Temp Pulse Resp B/P (MAP) Pulse Ox O2 Delivery O2 Flow Rate FiO2 10/24/17 14:54 98.6 70 16 130/87 (101) [address] Brain W/O Iv Contrast(Rout) (10/24/17 ) Ct Facial Bones W/O Iv Cont (10/24/17 ) [facility] Medical Decision Making Medical Screen Exam Complete: Yes Emergency Medical Condition: Yes Medical Record Reviewed: Yes Differential Diagnosis Intoxication versus head injury versus facial bone injury Narrative Course Patient is a 62-year-old male who comes in after hitting his head. He is obviously intoxicated. He has a superficial wound above his right eye. This was fixed with Dermabond. CT head and facial bones ordered. Patient signed out to Dr. Avila to follow-up CAT scans and assess for sobriety. Diagnosis Primary Impression: Abrasion Additional Impression: Alcohol intoxication Qualified Codes: F10.920 - Alcohol use, unspecified with intoxication, uncomplicated Scripts No Active Prescriptions or Reported Meds Isabella Wilson MD October 24, 2017 17:09
[2017-10-24] MEDS ORDERED: ACETAMINOPHEN 325 MG TAB PO ONE (17:45)
--- NOTE | 2017-10-24 17:57 | RADRPT ---
EXAM DATE: 10/24/2017 5:52 PM EDT AGE/SEX: 62 years / Male INDICATIONS: Patient fell and hit head. CLINICAL DATA: This is the patient's initial encounter. Patient reports that signs and symptoms have been present for 1 day and indicates a pain score of 6/10. MEDICAL/SURGICAL HISTORY: Cardiovascular disease. Hypertension. Hepatitis C. . Facial and cranial surgeries. RADIATION DOSE: 32.54 CTDI (mGy) COMPARISON: [facility], CT BRAIN W/O CONTRAST, 08/18/2017. . TECHNIQUE: CT of the head without contrast. Using automated exposure control and adjustment of the mA and/or kV according to patient size, radiation dose was kept as low as reasonably achievable to ob tain optimal diagnostic quality images. FINDINGS: There is stable encephalomalacia in the right temporal region and right frontal region. There is mild periventricular white matter hypodensity which appears stable. Slight symmetric prominence of ventri cles and came septa pellucida noted. There is no evidence of intracranial mass or hemorrhage. Nothing to suggest acute infarction. There is right periorbital soft tissue swelling. Extensive maxillofacia l trauma with evidence of plate repair on the left side. Incompletely healed or exacerbated fractures in the right orbit, maxilla and nasal bone. CONCLUSION: No acute intracranial injury Electronically signed by: Tonny Bryant MD 10/24/2017 5:56 PM EDT
[2017-10-24] MEDS ORDERED: LIDOCAINE 1%/EPINEPHrine 1:100,000 SOLN 20 ML VIAL INFIL ONE (18:45)
[2017-10-24 19:09] VITALS: BP 151/95; PULSE 79; RESP 18; O2SAT 99
--- NOTE | 2017-10-24 19:41 | RADRPT ---
EXAM DATE: 10/24/2017 5:39 PM EDT AGE/SEX: 62 years / Male INDICATIONS: Patient fell and hit head. CLINICAL DATA: This is the patient's initial encounter. Patient reports that signs and symptoms have been present for 1 day and indicates a pain score of 6/10. MEDICAL/SURGICAL HISTORY: Cardiovascular disease. Hypertension. Hepatitis C. . Facial and unscrambler nial surgeries. RADIATION DOSE: 51.28 CTDI (mGy) [place] [facility] [place], 08/18/2017. . TECHNIQUE: Contiguous images in the axial and coronal planes were obtained using helical multirow de tector technique. Using automated exposure control and adjustment of the mA and/or kV according to p atient size, radiation dose was kept as low as reasonably achievable to obtain optimal diagnostic alen lity images. FINDINGS: Prior CT 08/18/2017 and demonstrated right maxillary, right orbital wall, and bilateral nasal bone fr actures and prior surgery with indwelling hardware left infraorbital region and left zygomatic arch. On today's examination, the multifocal fractures of the right maxilla with opacification of the maxil vincenzo sinus and involvement of the anterior, lateral and medial méndez are stable in appearance. The na anna bone fractures are stable. Lateral orbital fracture with displacement is stable. The right zygoma tic arch and the mandible are intact. Stable appearance to the left lateral orbital wall fracture and indwelling metallic hardware in the zygomatic arch and infraorbital region. The right superolateral periorbital soft tissue swelling is slightly more prominent than on prior exa mination measuring up to 1.5 cm (previously measured 1.0 cm). CONCLUSION: 1. Increase in the size of the right lateral periorbital soft tissue swelling when compared to 2017. No radiopaque foreign bodies. 2. Multiple bilateral facial bone fractures arse stable when compared to prior CT. Electronically signed by: Dayne Galindo MD 10/24/2017 7:40 PM EDT
--- NOTE | 2017-10-24 19:44 | PD ---
Data Data Last Documented VS Vital Signs Date Time Temp Pulse Resp B/P (MAP) Pulse Ox O2 Delivery O2 Flow Rate FiO2 10/24/17 19:09 79 18 151/95 (113) 99 Room Air 10/24/17 14:[address] Brain W/O Iv Contrast(Rout) (10/24/17 ) Ct Facial Bones W/O Iv Cont (10/24/17 ) Acetaminophen (Tylenol) (10/24/17 17:45) Lidocai-Epi 1%-1:100,000 Inj (Xylocaine- (10/24/17 18:45) Ed Discharge Order (10/24/17 19:43) MDM Medical Record Reviewed: Yes Supervised Visit with SEVEN: Yes Narrative Course Please refer to the outgoing provider note. The patient has been ambulatory in the ER. He has been asking to leave. He has a laceration overlying the right eyebrow. It was repaired by the undersigned at the bedside. He is clinically sober and ready for discharge. Procedures Procedure Narrative LACERATION LOCATION: Right forehead LENGTH: 4 cm NUMBER OF STITCHES/DOC: 5 REPAIR: The area of the laceration was prepped with Betadine and sterilely draped. The laceration was infiltrated with Lidocaine. The wound was copiously irrigated and explored without evidence of foreign body, tendon injury or neurovascular injury. The wound was closed using 5-0 Ethilon this was a [single layer repair. A sterile dressing was applied. The patient was advised to keep the dressing clean and dry. Patient tolerated the procedure well. Diagnosis Primary Impression: Abrasion Additional Impressions: Alcohol intoxication Qualified Codes: F10.920 - Alcohol use, unspecified with intoxication, uncomplicated Laceration of scalp Qualified Codes: S01.01XA - Laceration without foreign body of scalp, initial encounter Referrals: RETURN TO ED IN 7 DAYS FOR SUTURE REMOVAL Patient Instructions: General Instructions, Alcohol Intoxication (ED), Abrasion (ED) Departure Forms: Tests/Procedures Scripts No Active Prescriptions or Reported Meds Disposition: 01 DISCHARGE HOME Condition: Stable Sagar Avila MD October 24, 2017 19:44
[2017-10-25] MEDS ORDERED: SERT-132 PO (06:42)
[2017-10-25] MEDS ORDERED: NIFE60TA58 PO (06:42)
[2017-10-25] MEDS ORDERED: HYDR-3799 PO (06:42)
[2017-10-25] MEDS ORDERED: AMMO12CR4 TOP (06:42)
[2017-10-25] MEDS ORDERED: IBUP1TAB5 PO (08:13)
== END 2017-10-24 19:44 | disposition home or self-care (01) ==
LOC: NEPD 14:25
DX: S01.01XA Laceration without foreign body of scalp, initial encounter (principal); F10.129 Alcohol abuse with intoxication, unspecified; F17.200 Nicotine dependence, unspecified, uncomplicated; W19.XXXA Unspecified fall, initial encounter
CPT/HCPCS: 12002; 70450; 70486

== ENCOUNTER 2017-10-25 05:48 | Emergency (ER) | payer MEDICAID ==
[~2017-10-25] VITALS: Ht 175.3 cm; Wt 70.0 kg
[2017-10-25 05:52] VITALS: BP 167/93; PULSE 67; RESP 18; TEMP 98.2; O2SAT 99
[2017-10-25] MEDS ORDERED: HYDR-3799 PO (06:42)
[2017-10-25] MEDS ORDERED: NIFE60TA58 PO (06:42)
[2017-10-25] MEDS ORDERED: AMMO12CR4 TOP (06:42)
[2017-10-25] MEDS ORDERED: SERT-132 PO (06:42)
[2017-10-25] MEDS ORDERED: IBUPROFEN 400 MG TAB PO ONE (07:15)
--- NOTE | 2017-10-25 07:18 | PD ---
HPI Chief Complaint: Pain: Acute or Chronic Time Seen by Provider: 06:51 Travel History International Travel<30 days: No Contact w/Intl Traveler<30days: No Traveled to known affect area: No History of Present Illness HPI The patient is a 62-year-old male who presents to emergency department for right chest wall pain after falling several days ago. The patient states he was intoxicated, fell against a curb, striking the right chest wall and face. The patient was seen in the emergency department Kandi had a CT the brain and facial bones performed and had his laceration sutured. However, the patient is complaining of right chest wall pain that is worse with movement and palpation. The pain is located of the right lateral chest wall. He denies any significant shortness of breath, but does note the pain is worse with movement. He denies any current neck pain, shortness breath, nausea, vomiting, or abdominal pain. Symptoms are moderate. PFSH Past Medical History Arthritis: Yes Autoimmune Disease: No Blood Disorders: No Anxiety: Yes Depression: Yes Cancer: No Cardiovascular Problems: Yes (HTN) COPD: Yes Diabetes: No Diminished Hearing: No Endocrine: No Gastrointestinal Disorders: No GERD: Yes Genitourinary: No Hepatitis: Yes (HEP C) Hypertension: Yes Immune Disorder: No Musculoskeletal: Yes (arthritis) Neurologic: Yes (dizziness) Psychiatric: No Reproductive: No Respiratory: Yes Immunizations Current: Yes Seizures: Yes Past Surgical History AICD: No Arteriovenous Shunt: No Body Medical Devices: titanium in body Joint Replacement: Yes (left hip replacement, left arm fusion,) Pacemaker: No Other Surgery: Yes (TITANIUM HIPS,BACK, ANKLES) Social History Alcohol Use: Yes (DAILY) Tobacco Use: Yes (1/2 ppd ) Substance Use: No Allergies-Medications (Allergen,Severity, Reaction): Coded Allergies: cephalexin (Verified Allergy, Severe, SWELLING/RASH, 10/25/17) codeine (Verified Allergy, Severe, Swelling, 10/25/17) *MDRO Multi-Drug Resistant Organism (Verified Adverse Reaction, Unknown, ) ESBL+E.Coli (urine-10/2015) Reported Meds & Prescriptions Reported Meds & Active Scripts Active Reported Sertraline (Sertraline HCl) 50 Mg Tab 50 Mg PO DAILY Nifedipine ER 24 HR (Nifedipine) 60 Mg Tab 60 Mg PO DAILY Hydralazine HCl 25 Mg Tablet 25 Mg PO TID Ammonium Lactate (Lactic Acid) 12 % Cre 1 Applic TOP BID APPLY TO: Review of Systems Except as stated in HPI: all other systems reviewed are Neg Eyes: No: Blurred Vision HENT: Positive: Other (Previous right facial injuries that were evaluated [address] of the brain and CT facial bones), No: Headaches, Neck Pain Cardiovascular: Positive: Chest Pain or Discomfort (Lateral right chest wall pain) Respiratory: No: Shortness of Breath Gastrointestinal: No: Nausea, Vomiting, Abdominal Pain Neurologic: No: Change in Mentation Physical Exam Narrative GENERAL: Awake, alert, nontoxic-appearing 62-year-old male who appears his stated age and is in no acute respiratory distress. SKIN: Focused skin assessment warm/dry. Large tattoo over the back noted. HEAD: Old appearing ecchymosis in the right periorbital area. Laceration with sutures in place above the right eye. EYES: Pupils equal and round. No scleral icterus. No injection or drainage. ENT: No nasal bleeding or discharge. Mucous membranes pink and moist. NECK: Trachea midline. No JVD. CARDIOVASCULAR: Regular rate and rhythm. No murmur appreciated. Tenderness to palpation of the right lateral chest wall. No crepitus noted. RESPIRATORY: No accessory muscle use. Clear to auscultation. Breath sounds equal bilaterally. GASTROINTESTINAL: Abdomen soft, non-tender, nondistended. MUSCULOSKELETAL: No obvious deformities. No clubbing. No cyanosis. No edema. NEUROLOGICAL: Awake and alert. No obvious cranial nerve deficits. Motor grossly within normal limits. Normal speech. Nonfocal. PSYCHIATRIC: Appropriate mood and affect; insight and judgment normal. Data Data Last Documented VS Vital Signs Date Time Temp Pulse Resp B/P (MAP) Pulse Ox O2 Delivery O2 Flow Rate FiO2 10/25/17 05:52 98.2 67 18 167/93 (117) 99 Orders Orders Chest, Pa & Lat (10/25/17 ) Ibuprofen (Motrin) (10/25/17 07:15) MDM Medical Decision Making Medical Screen Exam Complete: Yes Emergency Medical Condition: Yes Medical Record Reviewed: Yes Interpretation(s) Last Impressions Chest X-Ray 10/25/17 0000 Signed Impressions: CONCLUSION: No acute intrathoracic disease. Stable exam.a Differential Diagnosis Differential diagnosis includes chest wall pain, rib fracture, pneumothorax, hemothorax, contusion. Narrative Course I reviewed the patient's EMR, he was evaluated on October 24. A CT of the brain and facial bones, CT the facial bones reveals stable fractures when compared to previous CT that was performed in July 2017. Chest x-ray was obtained. The patient was administered ibuprofen 400 mg orally for pain. Chest x-ray is unremarkable. The patient will be discharged home on nonsteroidal anti- inflammatories. He is advised to follow-up with a physician. Diagnosis Primary Impression: Chest wall pain Patient Instructions: General Instructions Additional Instructions: Follow-up with a primary physician. Ibuprofen as directed. Apply ice and/or heat to the affected area. Decrease alcohol use. Med/Other Pt SpecificInfo: Prescription(s) given Scripts Ibuprofen (Ibuprofen) 400 Mg Tab 400 MG PO Q6H Y for PAIN SCALE 1 TO 10, #20 TAB 0 Refills Prov: Jason Joel MD 10/25/17 Disposition: 01 DISCHARGE HOME Condition: Stable Jason Joel MD October 25, 2017 07:18
--- NOTE | 2017-10-25 08:00 | RADRPT ---
EXAM DATE: 10/25/2017 7:54 AM EDT AGE/SEX: 62 years / Male INDICATIONS: Right rib pain due to fall. CLINICAL DATA: This is the patient's initial encounter. Patient reports that signs and symptoms have been present for 2 days and indicates a pain score of 9/10. MEDICAL/SURGICAL HISTORY: . Cardiovascular disease. Hypertension. Hepatitis C. . Facial and cr anial surgeries. Clavicle. Bilateral hip replacement. COMPARISON: [facility] [place], CHEST PA & LAT, 04/15/2017. . FINDINGS: PA and lateral views of the chest demonstrate the lungs to be symmetrically aerated without evidence of mass, infiltrate or effusion. The cardiomediastinal contours are unremarkable. Osseous structures are grossly intact. Old healed fracture involving the right 11th rib. Status post previous internal f ixation of the left clavicle. No significant changes. CONCLUSION: No acute intrathoracic disease. Stable exam.a Electronically signed by: Emanuel Self MD 10/25/2017 7:59 AM EDT
[2017-10-25] MEDS ORDERED: IBUP1TAB5 PO (08:13)
[2017-10-25 08:39] VITALS: BP 158/90
== END 2017-10-25 08:46 | disposition home or self-care (01) ==
LOC: NEPE 05:48
DX: R07.89 Other chest pain (principal); F17.200 Nicotine dependence, unspecified, uncomplicated; I10 Essential (primary) hypertension
CPT/HCPCS: 71046; 99283

== ENCOUNTER 2017-10-30 08:01 | Emergency (ER) | payer MEDICAID ==
[~2017-10-30] VITALS: Ht 175.3 cm; Wt 75.0 kg
[~2017-10-30 08:01] MED LIST changes: +AMMO12CR4 TOP; -CLIN300C5 PO; +HYDR-3799 PO; +IBUP1TAB5 PO; +NIFE60TA58 PO; +SERT-132 PO
[2017-10-30 08:04] VITALS: BP 155/87; PULSE 84; RESP 18; TEMP 96.8; O2SAT 96
--- NOTE | 2017-10-30 08:18 | PD ---
HPI Chief Complaint: Wound/Suture/Staple Re-Check Time Seen by Provider: 08:12 Travel History International Travel<30 days: No Contact w/Intl Traveler<30days: No Traveled to known affect area: No History of Present Illness HPI 62-year-old male presents to the emergency department requesting suture removal from his right lateral eyebrow. They have been in place since October 24. He denies redness, warmth, swelling, drainage from the wound site. Denies fever, vomiting. No known aggravating or relieving factors. Symptoms are mild in severity. Does not recall the name of his primary care provider. Allergies as listed on the chart. Has no other medical complaints. No other modifying factors or associated signs and symptoms. PFSH Past Medical History Arthritis: Yes Autoimmune Disease: No Blood Disorders: No Anxiety: Yes Depression: Yes Cancer: No Cardiovascular Problems: Yes (HTN) COPD: Yes Diabetes: No Diminished Hearing: No Endocrine: No Gastrointestinal Disorders: No GERD: Yes Genitourinary: No Hepatitis: Yes (HEP C) Hypertension: Yes Immune Disorder: No Musculoskeletal: Yes (arthritis) Neurologic: Yes (dizziness) Psychiatric: No Reproductive: No Respiratory: Yes Immunizations Current: Yes Seizures: Yes Past Surgical History AICD: No Arteriovenous Shunt: No Body Medical Devices: titanium in body Joint Replacement: Yes (left hip replacement, left arm fusion,) Pacemaker: No Other Surgery: Yes (TITANIUM HIPS,BACK, ANKLES) Social History Alcohol Use: Yes (DAILY) Tobacco Use: Yes (1/2 ppd ) Substance Use: No Allergies-Medications (Allergen,Severity, Reaction): Coded Allergies: cephalexin (Verified Allergy, Severe, SWELLING/RASH, 10/30/17) codeine (Verified Allergy, Severe, Swelling, 10/30/17) *MDRO Multi-Drug Resistant Organism (Verified Adverse Reaction, Unknown, ) ESBL+E.Coli (urine-10/2015) Reported Meds & Prescriptions Reported Meds & Active Scripts Active Ibuprofen 400 Mg Tab 400 Mg PO Q6H PRN Reported Sertraline (Sertraline HCl) 50 Mg Tab 50 Mg PO DAILY Nifedipine ER 24 HR (Nifedipine) 60 Mg Tab 60 Mg PO DAILY Hydralazine HCl 25 Mg Tablet 25 Mg PO TID Ammonium Lactate (Lactic Acid) 12 % Cre 1 Applic TOP BID APPLY TO: Review of Systems Except as stated in HPI: all other systems reviewed are Neg Physical Exam Narrative GENERAL: Well-nourished, well-developed male patient, in no acute distress SKIN: Warm and dry. Right lateral eyebrow with wound that is well approximated and sutures intact; without erythema, edema, drainage. No signs of infection. HEAD: Atraumatic. Normocephalic. EYES: Pupils equal and round. No scleral icterus. No injection or drainage. ENT: Mucosa pink and moist. Airway patent. NECK: Trachea midline. CARDIOVASCULAR: Regular rate. RESPIRATORY: No accessory muscle use. GASTROINTESTINAL: Flat. MUSCULOSKELETAL: No obvious deformities. No clubbing. No cyanosis. No edema. NEUROLOGICAL: Awake and alert. Oriented 3. No obvious cranial nerve deficits. Motor grossly within normal limits. Normal speech. PSYCHIATRIC: Appropriate mood and affect; insight and judgment normal. Data Data Last Documented VS Vital Signs Date Time Temp Pulse Resp B/P (MAP) Pulse Ox O2 Delivery O2 Flow Rate FiO2 10/30/17 08:04 96.8 84 18 155/87 (109) 96 Orders Orders Ed Discharge Order (10/30/17 08:18) MDM Medical Decision Making Medical Screen Exam Complete: Yes Emergency Medical Condition: Yes Medical Record Reviewed: Yes Differential Diagnosis Encounter for suture removal, wound recheck, medical clearance Narrative Course 62-year-old male presents for suture removal from his right eyebrow. They have been in place since October 24. No signs of infection. Sutures removed. Patient tolerated well. Instructed patient to follow up with primary care provider. Patient verbalizes understanding and agreement with treatment plan. Patient is medically cleared and stable for discharge. Discussed reasons to return to the emergency department. Patient agrees with treatment plan. The patients vital signs are stable and the patient is stable for outpatient follow-up and treatment. Patient discharged home, stable and in no acute distress. Diagnosis Primary Impression: Encounter for removal of sutures Referrals: [facility] Primary Care Physician Patient Instructions: General Instructions, Stitches Removal (ED) Additional Instructions: Keep area clean and dry Follow-up with primary care provider Return to the emergency department immediately with worsening of symptoms Med/Other Pt SpecificInfo: No Change to Meds, No Meds Exist/No RX given Disposition: DISCHARGE HOME Condition: Stable Abi Reynolds October 30, 2017 08:18
== END 2017-10-30 08:38 | disposition home or self-care (01) ==
LOC: NEPD 08:01
DX: S01.111D Laceration without foreign body of right eyelid and periocular area, subsequent encounter (principal); X58.XXXD Exposure to other specified factors, subsequent encounter; Z48.02 Encounter for removal of sutures
CPT/HCPCS: 99281

== ENCOUNTER 2018-05-10 10:37 | Inpatient (IN) ==
--- NOTE | 2018-05-10 13:51 | ED ---
HPI General Chief complaint: Medical Clearance Stated complaint: recheck Time Seen by Provider: 05/10/18 13:17 History of Present Illness HPI narrative: This is a 62-year-old male who presents for evaluation. He is a resident of [facility]. He was seen here earlier this morning for evaluation of lower back pain, he was discharged. He was then sent back here from [facility] because he is unable to ambulate. I spoke with Jeffy at [facility] in order to obtain more information. She reports that the patient has been confused since yesterday, typically he is able to ambulate independently with a shuffled gait however he has been having difficulty ambulating more than a few steps independently. He has had difficulty independently feeding himself since yesterday. He is also been incontinent of urine since yesterday. On my examination the patient is complaining of lower back pain. He reports that this is been going on for "a while." He is unable to provide much meaningful information. During review of systems he does report that he has been incontinent of urine for 2 days. He is denying any obvious fevers, chills, body aches, chest pain, shortness of breath , headache, blurred vision, dizziness, nausea, vomiting. He is denying any dysuria, testicular or scrotal pain. He is denying any other acute complaints at this time. Related Data Home Medications Medication Instructions Recorded Confirmed hydralazine 25 mg PO TID 02/09/18 05/10/18 meloxicam 15 mg PO DAILY 02/09/18 05/10/18 nifedipine 60 mg PO DAILY 02/09/18 05/10/18 sertraline [Zoloft] 50 mg PO DAILY 02/09/18 05/10/18 baclofen 10 mg PO TID 05/10/18 05/10/18 trazodone 50 mg PO HS 05/10/18 05/10/18 Allergies Allergy/AdvReac Type Severity Reaction Status Date / Time cephalexin Allergy Severe SWELLING/RA Verified 04/09/18 17:18 SH codeine Allergy Severe Swelling Verified 04/09/18 17:18 Review of Systems ROS: all other systems reviewed are negative [facility] Social History Social History Substance History: No History of Abuse Second Hand Smoke Exposure: Yes Smoking Status: Current every day smoker Tobacco Type: Cigarettes How Often Do You Have a Drink Containing Alcohol: 2 to 4 times a month Recent Travel in [facility] within the Last 8 Weeks: No Immunization History Tetanus Immunization Year if Known: 2016 Exam Narrative Exam Narrative: GENERAL: This is a thin male who appears older than his stated age. He is alert to person. He knows that he has had a hospital. He believes that the year is 1985. SKIN: Warm and dry. HEAD: Atraumatic. Normocephalic. EYES: Pupils equal and round. No scleral icterus. No injection or drainage. ENT: No nasal bleeding or discharge. Mucous membranes pink and moist. NECK: Trachea midline. No JVD. CARDIOVASCULAR: Regular rate and rhythm. No murmur appreciated. RESPIRATORY: No accessory muscle use. Clear to auscultation. Breath sounds equal bilaterally. GASTROINTESTINAL: Abdomen soft, non-tender, nondistended. Hepatic and splenic margins not palpable. MUSCULOSKELETAL: No obvious deformities. There is some tenderness to palpation to the left lumbar paravertebral musculature on my examination. There is no reproducible tenderness to palpation along the cervical thoracic or lumbar midline spine. He appears to have 4 out of 5 muscle strength on hip flexion and extension and leg flexion and extension bilaterally. Dorsiflexion appears somewhat limited bilaterally. There is no lower extremity edema. NEUROLOGICAL: Awake and alert. No obvious cranial nerve deficits. Motor grossly within normal limits. Course Initial Documented Vital Signs Temperature 99.3 F 05/10/18 10:40 Pulse Rate 68 05/10/18 10:40 Respiratory Rate 18 05/10/18 10:40 Blood Pressure 145/89 H 05/10/18 10:40 Pulse Oximetry 98 05/10/18 10:40 Last Documented Vital Signs Temperature 99.3 F 05/10/18 10:40 Pulse Rate 66 05/10/18 14:29 Respiratory Rate 12 05/10/18 14:29 Blood Pressure 185/104 H 05/10/18 14:29 Pulse Oximetry 98 05/10/18 14:29 Medical Decision Making SEVEN Attestation SEVEN supervised visit: Yes Attestation: I, Dr. Avila, have reviewed the advance practice practitioner's documentation and am in agreement, met with the patient face to face, made the diagnosis, and the medical decision making was done by me. *My assessment and Findings: no focal spinal tenderness. upward toe assessment limited by mental status. no lower extremity weakness otherwise. rectal tone normal per MATT Buckley. there is acute on chronic renal insufficiency with mildly elevated CK. MDM Narrative Medical decision making narrative: The patient was placed on ECG monitoring pulse oximetry. Lab work, CT brain, abdomen pelvis obtained. Urinalysis was obtained. Lab work is been reviewed, notable for a GFR of 19 with a BUN of 51, creatinine of 3.3, he appears to have chronic renal insufficiency however this appears to be worse than his baseline. Total CK is 633. 1 L normal saline bolus administered. CT the brain, abdomen pelvis reveals no acute abnormalities. At this point time the plan is to admit the patient for altered mental status, acute kidney injury and elevated CK. Discussed with Dr. Ayala who is agreeable. Medical Screen Exam Complete: Yes Emergency Medical Condition: Yes Differential Diagnosis Differential Diagnosis: Delirium, sepsis, meningitis, CVA, epidural abscess, uremia, UTI Lab Data Result diagrams: 05/10/18 14:12 05/10/18 14:12 Lab Results 05/10/18 05/10/18 05/10/18 Range/Units 14:12 14:12 14:12 WBC 7.6 (4.0-11.0) th/mm3 RBC 4.26 L (4.50-5.90) mil/mm3 Hgb 11.9 L (13.0-17.0) gm/dL Hct 34.0 L (39.0-51.0) % MCV 79.7 L (80.0-100.0) fL MCH 27.9 (27.0-34.0) pg MCHC 35.0 (32.0-36.0) % RDW 13.7 (11.6-17.2) % Plt Count 200 (150-450) th/mm3 MPV 8.8 (7.0-11.0) fL Neut % (Auto) 54.1 (16.0-70.0) % Lymph % (Auto) 36.2 (9.0-44.0) % [place] % (Auto) 7.3 (0.0-8.0) % Eos % (Auto) 1.2 (0.0-4.0) % Baso % (Auto) 1.2 (0.0-2.0) % Neut # (Auto) 4.1 (1.8-7.7) th/mm3 Lymph # (Auto) 2.7 (1.0-4.8) th/mm3 [place] # (Auto) 0.6 (0.0-0.9) th/mm3 Eos # (Auto) 0.1 (0.0-0.4) th/mm3 Baso # (Auto) 0.1 (0.0-0.2) th/mm3 WBC Differential . Differential Comment Auto diff final PT 11.0 (9.8-11.6) sec INR 1.1 Ratio APTT 27.8 (23.4-31.7) sec Sodium 142 (136-145) meq/L Potassium 4.3 (3.5-5.1) meq/L Chloride 107 (98-107) meq/L Carbon Dioxide 25.5 (21.0-32.0) meq/L Anion Gap 10 (5-15) meq/L BUN 51 H (7-18) mg/dL Creatinine 3.30 H (0.60-1.30) mg/dL Estimated GFR 19 L (>89) mL/min Random Glucose 75 (74-106) mg/dL Lactic Acid (0.4-2.0) mmol/L Calcium 8.8 (8.5-10.1) mg/dL Magnesium 2.2 (1.5-2.5) mg/dL Total Bilirubin 0.4 (0.2-1.0) mg/dL AST 60 H (15-37) U/L ALT 54 (12-78) U/L Alkaline Phosphatase 69 (45-117) U/L Total Creatine Kinase 633 H (39-308) U/L CK-MB (CK-2) 6.5 H (0.5-3.6) ng/mL CK-MB (CK-2) % 1.0 (0.0-4.0) % Total Protein 8.3 H (6.4-8.2) g/dL Albumin 4.2 (3.4-5.0) g/dL TSH 1.650 (0.358-3.740) uIU/mL Urine Color (Yellw/Straw) Urine Clarity (Clear) Urine pH (5.0-8.5) Ur Specific [place] (1.002-1.035) Urine Protein (Neg-Trace) mg/dL Urine Glucose (UA) (Negative) mg/dL Urine Ketones (Negative) mg/dL Urine Occult Blood (Negative) Urine Nitrate (Negative) Urine Bilirubin (Negative) Urine Urobilinogen (Less than 2) mg/dL Ur Leukocyte Esterase (Negative) Urine RBC (0-3) /hpf Urine WBC (0-5) /hpf Ur Squamous Epith Cells (0-5) /hpf Amorphous Sediment (None) /hpf Urine Bacteria (None) /hpf Urine Mucus (Occasional) /lpf Micro UA Comment Ur Microscopic Review Urine Culture Comments 05/10/18 05/10/18 Range/Units 14:17 14:44 WBC (4.0-11.0) th/mm3 RBC (4.50-5.90) mil/mm3 Hgb (13.0-17.0) gm/dL Hct (39.0-51.0) % MCV (80.0-100.0) fL MCH (27.0-34.0) pg MCHC (32.0-36.0) % RDW (11.6-17.2) % Plt Count (150-450) th/mm3 MPV (7.0-11.0) fL Neut % (Auto) (16.0-70.0) % Lymph % (Auto) (9.0-44.0) % [place] % (Auto) (0.0-8.0) % Eos % (Auto) (0.0-4.0) % Baso % (Auto) (0.0-2.0) % Neut # (Auto) (1.8-7.7) th/mm3 Lymph # (Auto) (1.0-4.8) th/mm3 [place] # (Auto) (0.0-0.9) th/mm3 Eos # (Auto) (0.0-0.4) th/mm3 Baso # (Auto) (0.0-0.2) th/mm3 WBC Differential Differential Comment PT (9.8-11.6) sec INR Ratio APTT (23.4-31.7) sec Sodium (136-145) meq/L Potassium (3.5-5.1) meq/L Chloride (98-107) meq/L Carbon Dioxide (21.0-32.0) meq/L Anion Gap (5-15) meq/L BUN (7-18) mg/dL Creatinine (0.60-1.30) mg/dL Estimated GFR (>89) mL/min Random Glucose (74-106) mg/dL Lactic Acid 0.8 (0.4-2.0) mmol/L Calcium (8.5-10.1) mg/dL Magnesium (1.5-2.5) mg/dL Total Bilirubin (0.2-1.0) mg/dL AST (15-37) U/L ALT (12-78) U/L Alkaline Phosphatase (45-117) U/L Total Creatine Kinase (39-308) U/L CK-MB (CK-2) (0.5-3.6) ng/mL CK-MB (CK-2) % (0.0-4.0) % Total Protein (6.4-8.2) g/dL Albumin (3.4-5.0) g/dL TSH (0.358-3.740) uIU/mL Urine Color Yellow (Yellw/Straw) Urine Clarity Clear (Clear) Urine pH 5.0 (5.0-8.5) Ur Specific [place] 1.014 (1.002-1.035) Urine Protein 100 H (Neg-Trace) mg/dL Urine Glucose (UA) 50 (Negative) mg/dL Urine Ketones Negative (Negative) mg/dL Urine Occult Blood Moderate H (Negative) Urine Nitrate Negative (Negative) Urine Bilirubin Negative (Negative) Urine Urobilinogen Less than 2 (Less than 2) mg/dL Ur Leukocyte Esterase Negative (Negative) Urine RBC 6 H (0-3) /hpf Urine WBC 1 (0-5) /hpf Ur Squamous Epith Cells <1 (0-5) /hpf Amorphous Sediment Occasional H (None) /hpf Urine Bacteria Occasional H (None) /hpf Urine Mucus Few H (Occasional) /lpf Micro UA Comment Culture not ind Ur Microscopic Review Not Reportable Urine Culture Comments Culture not ind Imaging Data Radiologist's impression: Head CT 05/10/18 13:34 CONCLUSION: 1. No acute abnormality seen. 2. Atrophy. 3. Suspected small vessel ischemic demyelination. 4. Stable encephalomalacia at the right temporal lobe. . Abdomen/Pelvis CT 05/10/18 13:50 CONCLUSION: 1. The cause of the patient's left flank pain is not seen. 2. Atherosclerotic change including borderline aneurysmal dilatation of the proximal abdominal aorta measuring 3 cm. Discharge Plan Discharge Disposition Patient Disposition: ED Admit(ED Internal Use Only) Discharge Condition Condition: Stable Discharge Order Discharge Orders: ED Use Only Admit Order (Routine); Ordered 05/10/18 Ordered By: Nirav Buckley Discharge Details Diagnosis: Altered mental status, Acute kidney injury, Elevated CK Physicians Team ED Provider: Sagar Avila ED Midlevel Provider: Nirav Buckley Primary Care Provider: Primary Care Vernell Lester Attending Provider: Gaby Cruz Status ED Status: Admitted Patient
[2018-05-10 15:01] LABS: Baso # (Auto) 0.1 th/mm3 (0.0-0.2); Baso % (Auto) 1.2 % (0.0-2.0); Eos # (Auto) 0.1 th/mm3 (0.0-0.4); Eos % (Auto) 1.2 % (0.0-4.0); Hemoglobin 11.9 gm/dL (13.0-17.0); Lymph # (Auto) 2.7 th/mm3 (1.0-4.8); Lymph % (Auto) 36.2 % (9.0-44.0); Mean Corpuscular Hemoglobin 27.9 pg (27.0-34.0); Mean Corpuscular Volume 79.7 fL (80.0-100.0); Mean Platelet Volume 8.8 fL (7.0-11.0); Mono # (Auto) 0.6 th/mm3 (0.0-0.9); Mono % (Auto) 7.3 % (0.0-8.0); Neut # (Auto) 4.1 th/mm3 (1.8-7.7); Neut % (Auto) 54.1 % (16.0-70.0); Platelet Count 200 th/mm3 (150-450); Red Blood Count 4.26 mil/mm3 (4.50-5.90); Red Cell Distribution Width 13.7 % (11.6-17.2); White Blood Count 7.6 th/mm3 (4.0-11.0)
[2018-05-10 15:19] LABS: Activated Partial Thrombo Time 27.8 sec (23.4-31.7); INR 1.1 Ratio
[2018-05-10 15:35] LABS: Alanine Aminotransferase 54 U/L (12-78); Albumin 4.2 g/dL (3.4-5.0); Anion Gap 10 meq/L (5-15); Aspartate Aminotransferase 60 U/L (15-37); Blood Urea Nitrogen 51 mg/dL (7-18); Calcium 8.8 mg/dL (8.5-10.1); Carbon Dioxide 25.5 meq/L (21.0-32.0); Chloride 107 meq/L (98-107); Glomerular Filtration Rate 19 mL/min (>89); Glucose,Random 75 mg/dL (74-106); Magnesium 2.2 mg/dL (1.5-2.5); Potassium 4.3 meq/L (3.5-5.1); Sodium 142 meq/L (136-145)
[2018-05-10 15:45] LABS: Alkaline Phosphatase 69 U/L (45-117); Creatine Kinase 633 U/L (39-308); Total Protein 8.3 g/dL (6.4-8.2)
[2018-05-10] MEDS ORDERED: Sod Chloride 0.9% Inj 1,000 ML IV.SIG SCH (15:45)
--- NOTE | 2018-05-10 15:53 | CT ---
EXAM DATE: 05/10/2018 3:48 PM EST AGE/SEX: 62 years / Male INDICATIONS: Altered Mental Status CLINICAL DATA: This is the patient's initial encounter. Patient reports that signs and symptoms have been present for 1 day and indicates a pain score of Nonresponsive. MEDICAL/SURGICAL HISTORY: Hypertension. None. RADIATION DOSE: 66.34 CTDI (mGy) COMPARISON: [facility], CT HEAD W/O CONTRAST, 04/09/2018. . TECHNIQUE: CT of the head without contrast. Using automated exposure control and adjustment of the mA and/or kV according to patient size, radiation dose was kept as low as reasonably achievable to ob tain optimal diagnostic quality images. DICOM format image data is available electronically for revi ew and comparison. FINDINGS: Cerebrum: The ventricles and cortical sulci are widened. There is decreased density seen in the cere bral white matter. There is a patent cavum septum pellucid. There is encephalomalacia at the right te mporal lobe. No evidence of midline shift, mass lesion, hemorrhage or acute infarction. No extraax ial fluid collections are seen. Posterior Fossa: The cerebellum and brainstem are intact. The 4th ventricle is midline. The cerebe llopontine angle is unremarkable. Extracranial: The visualized portion of the orbits is intact. Surgical hardware seen at the left zyg omatic arch and inferior left orbit and left maxillary bone. Skull: The calvaria is intact. No evidence of skull fracture. The patient is has surgical material at the left parietal skull. CONCLUSION: 1. No acute abnormality seen. 2. Atrophy. 3. Suspected small vessel ischemic demyelination. 4. Stable encephalomalacia at the right temporal lobe. . Electronically signed by: Tonny Nicolas MD 05/10/2018 3:52 PM EST
--- NOTE | 2018-05-10 15:56 | CT ---
EXAM DATE: 05/10/2018 3:50 PM EST AGE/SEX: 62 years / Male INDICATIONS: Left flank pain CLINICAL DATA: This is the patient's initial encounter. Patient reports that signs and symptoms have been present for 1 day and indicates a pain score of 4/10. MEDICAL/SURGICAL HISTORY: Hypertension. None. RADIATION DOSE: 6.91 CTDI (mGy) COMPARISON: No prior exams available for comparison. TECHNIQUE: Multiple contiguous axial images were obtained through the abdomen. Images were obtained using multiple row detector helical technique. Using automated exposure control and adjustment of the mA and/or kV according to patient size, radiation dose was kept as low as reasonably achievable to o btain optimal diagnostic quality images. DICOM format image data is available electronically for rev iew and comparison. FINDINGS: Lower Lungs: The visualized lower lungs are clear. Liver: The liver has a homogeneous density without space-occupying lesion. There is no dilation of th e biliary tree. Spleen: Homogeneous density without enlargement. There is a splenule seen at the inferior splenic hi lar region. Pancreas: Unremarkable without mass or calcification. Kidneys: Normal in size and shape. No evidence of mass or hydronephrosis. Adrenal Glands: Unremarkable. Aorta: Atherosclerotic calcifications are present. There is borderline aneurysmal dilatation of the upper abdominal aorta measuring 3 cm. Bowel/Mesentery: The bowel loops are grossly unremarkable. The cecum and sigmoid colon have a normal configuration. The appendix is normal. Abdominal Wall: Intact. Retroperitoneum: No evidence of adenopathy in the retrocrural, para-aortic, or deep pelvic regions. Bladder: Contours are smooth. Reproductive Organs: No abnormal masses or calcifications seen. Inguinal: The inguinal region is unremarkable without evidence of adenopathy. Bony Structures: There is hypertrophic change at the left anterior iliac region and the left proxima l femoral shaft presumably from prior injury. CONCLUSION: 1. The cause of the patient's left flank pain is not seen. 2. Atherosclerotic change including borderline aneurysmal dilatation of the proximal abdominal aorta measuring 3 cm. Electronically signed by: Tonny Nicolas MD 05/10/2018 3:55 PM EST
[2018-05-10 15:58] LABS: Creatine Kinase MB 6.5 ng/mL (0.5-3.6)
[2018-05-10 16:20] LABS: Amorphous Sediment,Urine Occasional /hpf; Bacteria,Urine Occasional /hpf; Bilirubin,Urine Negative (Negative); Clarity,Urine Clear (Clear); Color,Urine Yellow (Yellw/Straw); Glucose,Urine (UA) 50 mg/dL (Negative); Leukocyte Esterase,Urine Negative (Negative); Mucus,Urine Few /lpf (Occasional); Nitrite,Urine Negative (Negative); Specific Gravity,Urine 1.014 (1.002-1.035); Squamous Epithelial Cell,Urine <1 /hpf (0-5)
[2018-05-10] MEDS ORDERED: Bisacodyl 10 MG Supp RECTAL PRN (17:07)
[2018-05-10] MEDS ORDERED: Acetaminophen 325 MG Tablet PO PRN (17:07)
[2018-05-10] MEDS: Heparin - SQ 10,000 UNITS/ML Vial SQ SCH (18:17)
[2018-05-10] MEDS: hydrALAZINE 25 MG Tablet PO SCH (18:17)
[2018-05-10] MEDS: Baclofen 10 MG Tablet PO SCH (18:17)
[2018-05-10] MEDS ORDERED: KCL 20 mEq/D5W/NaCl 0.45% Inj 1,000 ML IV.CONT SCH (19:00)
--- NOTE | 2018-05-10 19:13 | P.HPIM ---
History of Present Illness Primary Care Physician: No Primary Care Physician Chief Complaint: Altered Mental Status and Gait Abnormalities History of Present Illness: Mr. Gottlieb is a 62yo Male with a hx of Bipolar Depression, Alcohol Use Disorder, and HTN who is domiciled at [facility]. He presented to the ED for a second time today via EMS as staff reported new onset Altered Mental Status and Gait Abnormalities resulting in inability to ambulate. He was d/c from [place] ED back to [facility] this morning after being evaluated for Back Pain last night. Upon return, [facility] staff noticed worsened shuffling gait, impaired ambulation, and altered mental status below baseline. Collateral info obtained from Jeffy at [facility], states that he can normally hold a conversation and takes small shuffling steps on his own; however, after returning from ED, he could not stand up/sit up on his own and told EMS that the year is 1985. Collateral Info obtained from Nurse Lancaster, who took care of him last night, states that he is somewhat decompensated mentally from prior visit. Pt is unable to provide any valuable information at this time, Oriented x2 (situation, place), appears agitated and restless, answers all questions with "no", states that he is "pissed off" but declines to say why, NAD, and requires physical assistance to sit up in bed. Patient Endorses Generalized Pain stating "I always have pain", all other ROS negative per pt. He also denies any hx of medical issues or substance abuse. Inpatient Certification: I certify that the inpatient services were ordered in accordance with Medicare regulations governing the order. This includes certification that hospital inpatient services are reasonable and necessary and in the case of services not specified as inpatient-only under 42 CFR 419.22(n), that they are appropriately provided as inpatient services in accordance to with the 2-midnight benchmark under 43 CFR 412.3(e) Estimated Total Length of Stay (Days): 3 Plans for Post Hospital Care: SNF Review of Systems GEN: Endorses Pain "I always have pain"; Denies any fever or fatigue HEENT: Denies FLORES, Sore Throat, Sinus Congestion Cardio: Denies Chest Pain, Palpitations Lungs: Denies SOB, Cough GI: Denies N/V, Ab pain : Denies Dysuria, Incontinence, Change in Frequency, Denies Hx of STIs Neuro: Denies Fatigue, Weakness Social Hx: Pt denies hx of substance abuse or EtOH abuse, Collateral Info from Jeffy and Chart Review indicate otherwise, Retired [employer] - History History Provided By: Patient (Poor Reliability at this time given mental status) , Friend (Jeffy - [facility] Padma), Medical Record - Medical / Surgical Hx Neg / Unobtainable Surgical History: Unable to Obtain - Medical History Medical History: Medical History (Last Reviewed 05/10/18 @ 04:38 by Paula Clarke) Depression HTN (hypertension) - Tobacco History Second Hand Smoke Exposure: Yes Tobacco Use In Past 30 Days: Yes Smoking Status: Current every day smoker Tobacco Type: Cigarettes - Alcohol History How Often Do You Have a Drink Containing Alcohol: 2 to 4 times a month - Substance Use History Substance History: No History of Abuse - Travel History Recent Travel in the [facility] Within the Last 8 Weeks: No - Immunization History Tetanus Immunization: Unsure Tetanus Immunization Year if Known: 2015 Medications and Allergies Active Medications: Active Medications Acetaminophen (Tylenol) 650 mg PO Q4H PRN PRN Reason: Temp > 100.4 Al Hydroxide/Mg Hydroxide (Milk Of Magnesia Liq) 30 ml PO Q12H PRN PRN Reason: Mild Constipation Baclofen (Lioresal) 10 mg PO TID FARHAD Bisacodyl (Dulcolax Supp) 10 mg RECTAL DAILY PRN PRN Reason: SEVERE CONSITIPATION Heparin Sodium (Porcine) (Heparin Inj) 5,000 units SQ Q12H [facility] Hydralazine HCl (Apresoline) 25 mg PO TID [facility] Potassium Chloride/Dextrose/Sod Cl (D5w/1/2ns + Kcl 20 Meq Inj) 1,000 mls @ 100 mls/hr IV.CONT .Q10H [facility] Stop: 05/11/18 04:59 Lactulose (Lactulose Liq) 30 ml PO DAILY PRN PRN Reason: SEVERE CONSITIPATION Nifedipine (Procardia Xl) 60 mg PO DAILY [facility] Ondansetron HCl (Zofran Inj) 4 mg IV.PUSH Q6H PRN PRN Reason: NAUSEA OR VOMITING Senna/Docusate Sodium (Quita-Colace) 1 tab PO BID [facility] Sennosides (Senokot) 17.2 mg PO Q12H PRN PRN Reason: Moderate Constipation Sertraline HCl (Zoloft) 50 mg PO DAILY [facility] Sodium Chloride (Ns Flush) 2 ml IV.FLUSH PRN PRN PRN Reason: FLUSH AFTER USING IV ACCESS Sodium Chloride (Ns Flush) 2 ml IV.FLUSH BID FARHAD Sodium Chloride (Ns Flush) 2 ml IV.FLUSH PRN PRN PRN Reason: FLUSH AFTER USING IV ACCESS Tramadol HCl (Ultram) 50 mg PO Q6H PRN PRN Reason: PAIN SCALE 6 TO 10 Trazodone HCl (Desyrel) 50 mg PO HS [facility] Allergies Allergy/AdvReac Type Severity Reaction Status Date / Time cephalexin Allergy Severe SWELLING/RA Verified 04/09/18 17:18 SH codeine Allergy Severe Swelling Verified 04/09/18 17:18 Home Medications Medication Instructions Recorded Confirmed Type hydralazine 25 mg PO TID 02/09/18 05/10/18 History meloxicam 15 mg PO DAILY 02/09/18 05/10/18 History nifedipine 60 mg PO DAILY 02/09/18 05/10/18 History sertraline [Zoloft] 50 mg PO DAILY 02/09/18 05/10/18 History baclofen 10 mg PO TID 05/10/18 05/10/18 History trazodone 50 mg PO HS 05/10/18 05/10/18 History Exam Vital signs: Vital Signs 05/10/18 10:40 05/10/18 14:29 Temperature 99.3 F Pulse Rate 68 66 Respiratory Rate 18 12 Blood Pressure 145/89 H 185/104 H Pulse Oximetry 98 98 Intake & Output 05/09/18 05/10/18 05/10/18 18:59 06:59 18:59 Weight 74.843 kg Narrative: Patient Declines Physical Exam at this time, will reassess later when stable GEN: Pt lying in bed, Dressed in Hospital Gown, Thin, Disheveled, Poorly Groomed , Poor Hygiene (dirty feet), Appears Agitated and Restless, NAD SKIN: Pt has dry flaking skin all over, SubQ Masses on the dorsum of hands bilaterally, Superficial Lesions on Upper and Lower Extremity, Multiple Tattoos ; No obvious rash or jaundice Neuro: Awake, Oriented x2 (situation, place) MSK: No obvious bone deformities, (+) Muscle Weakness as patient requires assistance sitting up Psych: Mood "I'm pissed off", Mood Congruent Affect, Poor Emotional Responsiveness, Poor Concentration, Poor Reliability, Poor Insight/Judgement, Denies a/v/t hallucinations or delusions, Denies SI/HI, Mini-Cog = 0/3 Recall Results - Labs CBC & Chem 7: 05/10/18 14:12 05/10/18 14:12 Labs: Short CBC 05/10/18 Range/Units 14:12 WBC 7.6 (4.0-11.0) th/mm3 Hgb 11.9 L (13.0-17.0) gm/dL Hct 34.0 L (39.0-51.0) % Plt Count 200 (150-450) th/mm3 BMP 05/10/18 14:12 Sodium 142 Potassium 4.3 Chloride 107 Carbon Dioxide 25.5 BUN 51 H Creatinine 3.30 H Calcium 8.8 Cardiac Enzymes 05/10/18 Range/Units 14:12 Total Creatine Kinase 633 H (39-308) U/L CK-MB (CK-2) 6.5 H (0.5-3.6) ng/mL Liver Function 05/10/18 Range/Units 14:12 Total Bilirubin 0.4 (0.2-1.0) mg/dL AST 60 H (15-37) U/L ALT 54 (12-78) U/L Alkaline Phosphatase 69 (45-117) U/L Albumin 4.2 (3.4-5.0) g/dL Urine 05/10/18 Range/Units 14:44 Urine Color Yellow (Yellw/Straw) Urine Clarity Clear (Clear) Urine pH 5.0 (5.0-8.5) Ur Specific Colman 1.014 (1.002-1.035) Urine Protein 100 H (Neg-Trace) mg/dL Urine Glucose (UA) 50 (Negative) mg/dL - Imaging Impressions Head CT 05/10/18 13:34 CONCLUSION: 1. No acute abnormality seen. 2. Atrophy. 3. Suspected small vessel ischemic demyelination. 4. Stable encephalomalacia at the right temporal lobe. . Abdomen/Pelvis CT 05/10/18 13:50 CONCLUSION: 1. The cause of the patient's left flank pain is not seen. 2. Atherosclerotic change including borderline aneurysmal dilatation of the proximal abdominal aorta measuring 3 cm. Caprini VTE Risk Assessment Caprini Risk Assessment Model: Point Value = 1 Point Value = 2 Point Value = 3 Point Value = 5 Age 41-60 Minor surgery BMI > 25 kg/m2 Swollen legs Varicose veins or History of unexplained or recurrent spontaneous Oral contraceptives or hormone replacement Sepsis (< 1 month) Serious lung disease, including pneumonia (< 1 month) Abnormal pulmonary function Acute myocardial infarction Congestive heart failure (< 1 month) History of inflammatory bowel disease Medical patient at bed rest Age 61-74 Arthroscopic surgery Major open surgery (> 45 min) Laparoscopic surgery (> 45 min) Malignancy Confined to bed (> 72 hours) Immobilizing plaster cast Central venous access Age >= 75 History of VTE Family history of VTE Factor V Leiden Prothrombin [id number] Lupus anticoagulant Anticardiolipin antibodies Elevated serum homocysteine Heparin-induced thrombocytopenia Other congenital or acquired thrombophilia Stroke (< 1 month) Elective arthroplasty Hip, pelvis, or leg fracture Acute spinal cord injury (< 1 month) Prophylaxis Regimen: Total Risk Factor Score Risk Level Prophylaxis Regimen 0-1 Low Early ambulation 2 Moderate Order ONE of the following: *Sequential Compression Device (SCD) *Heparin 5000 units SQ BID 3-4 Higher Order ONE of the following medications: *Heparin 5000 units SQ TID *Enoxaparin/Lovenox 40 mg SQ daily (WT < 150 kg, CrCl > 30 mL/min) *Enoxaparin/Lovenox 30 mg SQ daily (WT < 150 kg, CrCl > 10-29 mL/min) *Enoxaparin/Lovenox 30 mg SQ BID (WT < 150 kg, CrCl > 30 mL/min) AND/OR *Sequential Compression Device (SCD) 5 or more Highest Order ONE of the following medications: *Heparin 5000 units SQ TID (Preferred with Epidurals) *Enoxaparin/Lovenox 40 mg SQ daily (WT < 150 kg, CrCl > 30 mL/min) *Enoxaparin/Lovenox 30 mg SQ daily (WT < 150 kg, CrCl > 10-29 mL/min) *Enoxaparin/Lovenox 30 mg SQ BID (WT < 150 kg, CrCl > 30 mL/min) AND *Sequential Compression Device (SCD) Assessment and Plan - Plan This is a 62yo Male with a hx of Bipolar Disorder, Alcohol Use Disorder, and HTN who is being admitted for further workup/observation after presenting to [place] ED on 05/10/18 via EMS c/o Altered Mental Status and Worsened Gait Abnormalities causing Inability to Ambulate per staff at [facility] where he is domiciled. This is his 2nd visit to [place] ED in last 24hrs, with the first visit he was evaluated for Back Pain and d/c'd back to [facility]. CT Abdomen/Pelvis (05/10/18) is significant for Borderline Aneurysmal Dilation of Proximal Abdominal Aorta (3cm) but no obvious cause of pt 's back/flank pain was identified. CT head significant for Atrophy, Suspected Small Vessel Ischemic Demyelination, Stable Encephalomalacia of Right Temporal Lobe, and No acute abnormality. 1) Acute Kidney Injury - etiology unknown at this time given Negative CT * DDx: Renal Ischemia vs Glomerular Injury vs Obstruction * BUN (51), Cr (3.31), BUN:CR (15.45) * Monitor I/O * Labs: FENa, Urine Na+, Urine Osm - to determine if pre/intra/post-renal etiology * Meds: Continue IV Fluids 2) Altered Mental Status - most likely developing delirium in the context of renal pathology vs Wernicke-Korsakoff vs Vitamin Deficiency vs EtOH Withdrawal * Collateral Info (Jeffy at [facility]) states current state is well below his baseline * CT Head = Atrophy, Suspected Small Vessel Ischemic Demyelination, Stable Encephalomalacia of Right Temporal Lobe, No acute abnormality * Consult: Psychiatry * Labs: Thiamine, B12, HIV, Hepatitis Panel - r/o underlying etiology of AMS in context of hx of Alcohol Use Disorder 3) Gait Abnormalities - most likely related to etiology of AMS, Wernicke Encephalopathy vs Korsakoff Syndrome vs Vitamin Deficiency vs EtOH Withdrawal * Collateral Info (Jeffy at [facility]) states pt normally ambulates on his own with "short shuffling steps", but is acutely well below baseline * Consult: Neuro - will consider pending lab results * Labs: Thiamine, B12, HIV, Hepatitis Panel - r/o underlying etiology of Abnormal Gait in the context of hx of Alcohol Use Disorder 4) Bipolar Disorder * Pt is currently taking Sertraline and Trazodone followed by Dr. Espitia outpatient * Consult: Psychiatry - evaluate and determine appropriate medications * Meds: HOLD Sertraline - can precipitate manic episode in bipolar pts 5) HTN - stable * Monitor vitals and fluid status * Meds: Continue Home Meds - Hydralazine, Nifedipine 6) Alcohol Use Disorder * Per chart review * Monitor for tremor, increased agitation, hyperthermia, seizures, other withdrawal symptoms * CIWA Protocol 7) Back/Flank Pain - chronic * may also be related to renal pathology * Meds: Tylenol prn for pain 8) DVT Prophylaxis - SCDs
--- NOTE | 2018-05-10 19:22 | P.HPIM ---
History of Present Illness Primary Care Physician: No Primary Care Physician History of Present Illness: 62 Y/O male with a medical history significant for HTN, alcohol abuse, bipolar disorder sent from [facility] for altered mental status and inability to ambulate. The patient was seen here in the emergency room earlier for back pain and was discharged back to the [facility]. The staff at the [facility] reported that he seemed more confuse and is having more trouble walking. He can normally hold a simple conversation and able to walk with a shuffling gait. It was noted that his gait seems to be worse. On my evaluation, patient states he does not know why he was brought to the Hospital. He complains of same chronic back pain. No change in the characteristic of the pain. He answer yes or no to some questions, otherwise he could not contribute much to the history. Inpatient Certification Inpatient Certification: I certify that the inpatient services were ordered in accordance with Medicare regulations governing the order. This includes certification that hospital inpatient services are reasonable and necessary and in the case of services not specified as inpatient-only under 42 CFR 419.22(n), that they are appropriately provided as inpatient services in accordance to with the 2-midnight benchmark under 43 CFR 412.3(e) Estimated Total Length of Stay (Days): 3 Plans for Post Hospital Care: SNF Review of Systems ROS Unobtainable: unobtainable due to mental status PMFSH Medical History Medical History Depression (Acute) HTN (hypertension) (Acute) Social History Social History Substance History: No History of Abuse Second Hand Smoke Exposure: Yes Smoking Status: Current every day smoker Tobacco Type: Cigarettes How Often Do You Have a Drink Containing Alcohol: 2 to 4 times a month Recent Travel in [facility] within the Last 8 Weeks: No Immunization History Tetanus Immunization: Unsure Tetanus Immunization Year if Known: 2015 Medications and Allergies Allergies Allergy/AdvReac Type Severity Reaction Status Date / Time cephalexin Allergy Severe SWELLING/RA Verified 04/09/18 17:18 SH codeine Allergy Severe Swelling Verified 04/09/18 17:18 Home Medications Medication Instructions Recorded Confirmed Type hydralazine 25 mg PO TID 02/09/18 05/10/18 History meloxicam 15 mg PO DAILY 02/09/18 05/10/18 History nifedipine 60 mg PO DAILY 02/09/18 05/10/18 History sertraline [Zoloft] 50 mg PO DAILY 02/09/18 05/10/18 History baclofen 10 mg PO TID 05/10/18 05/10/18 History trazodone 50 mg PO HS 05/10/18 05/10/18 History Active Medications: Active Medications Acetaminophen (Tylenol) 650 mg PO Q4H PRN PRN Reason: Temp > 100.4 Al Hydroxide/Mg Hydroxide (Milk Of Magnesia Liq) 30 ml PO Q12H PRN PRN Reason: Mild Constipation Baclofen (Lioresal) 10 mg PO TID COUNT INCLUDES THE [facility] Last Admin: 05/10/18 18:17 Dose: 10 mg Bisacodyl (Dulcolax Supp) 10 mg RECTAL DAILY PRN PRN Reason: SEVERE CONSITIPATION Heparin Sodium (Porcine) (Heparin Inj) 5,000 units SQ Q12H COUNT INCLUDES THE [facility] Last Admin: 05/10/18 18:17 Dose: 5,000 units Hydralazine HCl (Apresoline) 25 mg PO TID COUNT INCLUDES THE [facility] Last Admin: 05/10/18 18:17 Dose: 25 mg Potassium Chloride/Dextrose/Sod Cl (D5w/1/2ns + Kcl 20 Meq Inj) 1,000 mls @ 100 mls/hr IV.CONT .Q10H COUNT INCLUDES THE [facility] Stop: 05/11/18 04:59 Last Admin: 05/10/18 18:18 Dose: 100 mls/hr Lactulose (Lactulose Liq) 30 ml PO DAILY PRN PRN Reason: SEVERE CONSITIPATION Nifedipine (Procardia Xl) 60 mg PO DAILY COUNT INCLUDES THE [facility] Ondansetron HCl (Zofran Inj) 4 mg IV.PUSH Q6H PRN PRN Reason: NAUSEA OR VOMITING Senna/Docusate Sodium (Quita-Colace) 1 tab PO BID COUNT INCLUDES THE [facility] Sennosides (Senokot) 17.2 mg PO Q12H PRN PRN Reason: Moderate Constipation Sertraline HCl (Zoloft) 50 mg PO DAILY COUNT INCLUDES THE [facility] Sodium Chloride (Ns Flush) 2 ml IV.FLUSH PRN PRN PRN Reason: FLUSH AFTER USING IV ACCESS Sodium Chloride (Ns Flush) 2 ml IV.FLUSH BID COUNT INCLUDES THE [facility] Sodium Chloride (Ns Flush) 2 ml IV.FLUSH PRN PRN PRN Reason: FLUSH AFTER USING IV ACCESS Tramadol HCl (Ultram) 50 mg PO Q6H PRN PRN Reason: PAIN SCALE 6 TO 10 Trazodone HCl (Desyrel) 50 mg PO HS FARHAD Physical Exam Vital signs: Last Vital Signs Temp 99.3 F 05/10/18 10:40 Pulse 66 05/10/18 14:29 Resp 12 05/10/18 14:29 BP 185/104 H 05/10/18 14:29 Pulse Ox 98 05/10/18 14:29 Intake & Output 05/08/18 05/09/18 05/10/18 05/11/18 06:59 06:59 06:59 06:59 Intake Total 1000 / 1000 Balance 1000 / 1000 Weight 74.843 kg Narrative: GENERAL: Disheveled male sitting up in the bed. No acute distress. SKIN: Warm and dry. HEAD: Normocephalic. Atraumatic EYES: No scleral icterus. No injection or drainage. NECK: Supple, trachea midline. No JVD or lymphadenopathy. CARDIOVASCULAR: Normal rate and regular rhythm without murmurs, gallops, or rubs. RESPIRATORY: Breath sounds equal bilaterally. No accessory muscle use. GASTROINTESTINAL: Abdomen soft, non-tender, nondistended. MUSCULOSKELETAL: No cyanosis, or edema. BACK: C/O paraspinal muscle tenderness to palpation over the lumbar area. No CVA tenderness. Results Labs CBC & Chem 7: 05/10/18 14:12 05/10/18 14:[address] 05/10/18 13:34 CONCLUSION: 1. No acute abnormality seen. 2. Atrophy. 3. Suspected small vessel ischemic demyelination. 4. Stable encephalomalacia at the right temporal lobe. . Abdomen/Pelvis CT 05/10/18 13:50 CONCLUSION: 1. The cause of the patient's left flank pain is not seen. 2. Atherosclerotic change including borderline aneurysmal dilatation of the proximal abdominal aorta measuring 3 cm. Caprini VTE Risk Assessment Caprini VTE Risk Assessment: Moderate/High Risk (score >= 2) Caprini Risk Assessment Model: Point Value = 1 Point Value = 2 Point Value = 3 Point Value = 5 Age 41-60 Minor surgery BMI > 25 kg/m2 Swollen legs Varicose veins or History of unexplained or recurrent spontaneous Oral contraceptives or hormone replacement Sepsis (< 1 month) Serious lung disease, including pneumonia (< 1 month) Abnormal pulmonary function Acute myocardial infarction Congestive heart failure (< 1 month) History of inflammatory bowel disease Medical patient at bed rest Age 61-74 Arthroscopic surgery Major open surgery (> 45 min) Laparoscopic surgery (> 45 min) Malignancy Confined to bed (> 72 hours) Immobilizing plaster cast Central venous access Age >= 75 History of VTE Family history of VTE Factor V Leiden Prothrombin [id number] Lupus anticoagulant Anticardiolipin antibodies Elevated serum homocysteine Heparin-induced thrombocytopenia Other congenital or acquired thrombophilia Stroke (< 1 month) Elective arthroplasty Hip, pelvis, or leg fracture Acute spinal cord injury (< 1 month) Prophylaxis Regimen: Total Risk Factor Score Risk Level Prophylaxis Regimen 0-1 Low Early ambulation 2 Moderate Order ONE of the following: *Sequential Compression Device (SCD) *Heparin 5000 units SQ BID 3-4 Higher Order ONE of the following medications: *Heparin 5000 units SQ TID *Enoxaparin/Lovenox 40 mg SQ daily (WT < 150 kg, CrCl > 30 mL/min) *Enoxaparin/Lovenox 30 mg SQ daily (WT < 150 kg, CrCl > 10-29 mL/min) *Enoxaparin/Lovenox 30 mg SQ BID (WT < 150 kg, CrCl > 30 mL/min) AND/OR *Sequential Compression Device (SCD) 5 or more Highest Order ONE of the following medications: *Heparin 5000 units SQ TID (Preferred with Epidurals) *Enoxaparin/Lovenox 40 mg SQ daily (WT < 150 kg, CrCl > 30 mL/min) *Enoxaparin/Lovenox 30 mg SQ daily (WT < 150 kg, CrCl > 10-29 mL/min) *Enoxaparin/Lovenox 30 mg SQ BID (WT < 150 kg, CrCl > 30 mL/min) AND *Sequential Compression Device (SCD) Assessment and Plan Plan 62 Y/O male sent to the ED for the second time today for reported worsening confusion and inability to ambulate. Initial workup in the ED revealed no acute changes for head/pelvis/abdomen CT. He does have acute on chronic renal failure. Acute on chronic renal failure: - Likely prerenal from dehydration. He does have a history of alcoholism. Unclear if he is still drinking. Can also be adverse effects from NSAIDS. He has been taking Meloxicam - No evidence of obstruction. He has been voiding/incontinent in the ED. - IVF for hydration. Stop Meloxicam - F/U labs in AM. Reported altered mental status: Conflicting reports. EMS this morning states his mental status if at baseline. Could be due to uremia vs alcohol dementia. Delirium also possible - CT head noted as above - Check b12, folate, TSH Gait Abnormalities - most likely related to above - PT consult. He does have shuffling gait at baseline. Bipolar Disorder Pt is currently taking Sertraline and Trazodone followed by Dr. Espitia outpatient Hold Sertraline until evaluated by psych. Continue Trazodone. Consult Psychiatry to assist with psych medication management. Continue Trazodone. Chronic back pain: - Add low dose Tramadol - PT to evaluate. HTN: stable - Continue hydralazine and Nifedipine History of Alcohol abuse: Unclear if he is still drinking - Monitor for signs of withdrawal. DVT PPx: Heparin Discussed Condition With: ED staff. Medical student Andrea Perez.
[2018-05-10 20:47] LABS: Folate 18.1 ng/mL (3.1-17.5)
[2018-05-10] MEDS: traZODone 50 MG Tablet PO SCH (23:40)
[2018-05-10] MEDS: Senna/Docusate Sodium 8.6/50 MG Tablet PO SCH (23:41)
[2018-05-11] MEDS: Heparin - SQ 10,000 UNITS/ML Vial SQ SCH ×2 (05:33→18:11)
[2018-05-11 08:19] LABS: Baso # (Auto) 0.1 th/mm3 (0.0-0.2); Baso % (Auto) 1.7 % (0.0-2.0); Eos # (Auto) 0.3 th/mm3 (0.0-0.4); Eos % (Auto) 5.2 % (0.0-4.0); Hematocrit 32.3 % (39.0-51.0); Hemoglobin 11.2 gm/dL (13.0-17.0); Lymph # (Auto) 2.5 th/mm3 (1.0-4.8); Lymph % (Auto) 38.5 % (9.0-44.0); Mean Corpuscular HGB Conc 34.6 % (32.0-36.0); Mean Corpuscular Hemoglobin 27.5 pg (27.0-34.0); Mean Corpuscular Volume 79.5 fL (80.0-100.0); Mean Platelet Volume 8.4 fL (7.0-11.0); Mono # (Auto) 0.6 th/mm3 (0.0-0.9); Mono % (Auto) 9.4 % (0.0-8.0); Neut % (Auto) 45.2 % (16.0-70.0); Platelet Count 183 th/mm3 (150-450); Red Blood Count 4.06 mil/mm3 (4.50-5.90); Red Cell Distribution Width 13.6 % (11.6-17.2); White Blood Count 6.6 th/mm3 (4.0-11.0)
[2018-05-11 08:41] LABS: Calcium 8.7 mg/dL (8.5-10.1); Potassium 3.6 meq/L (3.5-5.1)
[2018-05-11] MEDS ORDERED: Sertraline 50 MG Tablet PO SCH (09:00)
[2018-05-11] MEDS: Senna/Docusate Sodium 8.6/50 MG Tablet PO SCH ×2 (10:05→21:20)
[2018-05-11] MEDS: hydrALAZINE 25 MG Tablet PO SCH ×3 (10:05→18:12)
[2018-05-11] MEDS: Baclofen 10 MG Tablet PO SCH ×3 (10:05→18:12)
--- NOTE | 2018-05-11 12:34 | P.PNIM ---
Subjective Interval history: Follow-up visit EtOH, altered mental status. Patient seen and examined today. Reports he is doing "okay." Patient reports he does not know where he is at, states it is 1978, he does not know where he lives. He admits to drinking whiskey a glass a day. He admits to tobacco use of half a pack a day. Patient appears to have odd behaviors of looking up and looking down as well as looking around while talking to him. He appears to have some cognitive deficits but unknown if he is diagnosed with any psychiatric dz. Physical Exam Vital signs: Vital Signs 05/10/18 14:29 05/10/18 20:00 05/11/18 00:00 Temperature 98.2 F 97.4 F L Pulse Rate 66 83 103 H Respiratory Rate 12 17 20 Blood Pressure 185/104 H 183/103 H 156/73 H Pulse Oximetry 98 99 98 05/11/18 04:00 05/11/18 07:50 Temperature 97.6 F 97.7 F Pulse Rate 62 61 Respiratory Rate 19 20 Blood Pressure 151/86 H 141/92 H Pulse Oximetry 97 97 Intake & Output 05/10/18 05/11/18 05/11/18 18:59 06:59 18:59 Intake Total 1000 / 1000 1060 / 1060 Balance 1000 / 1000 1060 / 1060 Weight 74.843 kg 74 kg Intake: IV 1000 / 1000 1000 / 1000 D5W/1/2NS + KCL 20 mEq Inj 1, 1000 / 1000 000 ML @ 100 mls/hr IV.CONT . Q10H FARHAD Rx#:[id number] NS Inj 1,000 ML @ 1000 mls/hr 1000 / 1000 IV.SIG BOLUS FARHAD Rx#:[id number] Oral 60 / 60 Results - Labs CBC & Chem 7: 05/11/18 07:45 05/11/18 07:45 Laboratory Results - last 24 hr 05/10/18 05/10/18 05/10/18 14:12 14:12 14:12 WBC 7.6 RBC 4.26 L Hgb 11.9 L Hct 34.0 L MCV 79.7 L MCH 27.9 MCHC 35.0 RDW 13.7 Plt Count 200 MPV 8.8 Neut % (Auto) 54.1 Lymph % (Auto) 36.2 Harrison % (Auto) 7.3 Eos % (Auto) 1.2 Baso % (Auto) 1.2 Neut # (Auto) 4.1 Lymph # (Auto) 2.7 Harrison # (Auto) 0.6 Eos # (Auto) 0.1 Baso # (Auto) 0.1 WBC Differential . Differential Comment Auto diff final PT 11.0 INR 1.1 APTT 27.8 Sodium 142 Potassium 4.3 Chloride 107 Carbon Dioxide 25.5 Anion Gap 10 BUN 51 H Creatinine 3.30 H Estimated GFR 19 L Random Glucose 75 Lactic Acid Calcium 8.8 Magnesium 2.2 Total Bilirubin 0.4 AST 60 H ALT 54 Alkaline Phosphatase 69 Total Creatine Kinase 633 H CK-MB (CK-2) 6.5 H CK-MB (CK-2) % 1.0 Total Protein 8.3 H Albumin 4.2 Vitamin B12 Folate TSH 1.650 Urine Color Urine Clarity Urine pH Ur Specific Traver Urine Protein Urine Glucose (UA) Urine Ketones Urine Occult Blood Urine Nitrate Urine Bilirubin Urine Urobilinogen Ur Leukocyte Esterase Urine RBC Urine WBC Ur Squamous Epith Cells Amorphous Sediment Urine Bacteria Urine Mucus Micro UA Comment Ur Microscopic Review Urine Culture Comments 05/10/18 05/10/18 05/10/18 14:12 14:12 14:17 WBC RBC Hgb Hct MCV MCH MCHC RDW Plt Count MPV Neut % (Auto) Lymph % (Auto) Harrison % (Auto) Eos % (Auto) Baso % (Auto) Neut # (Auto) Lymph # (Auto) Harrison # (Auto) Eos # (Auto) Baso # (Auto) WBC Differential Differential Comment PT INR APTT Sodium Potassium Chloride Carbon Dioxide Anion Gap BUN Creatinine Estimated GFR Random Glucose Lactic Acid 0.8 Calcium Magnesium Total Bilirubin AST ALT Alkaline Phosphatase Total Creatine Kinase CK-MB (CK-2) CK-MB (CK-2) % Total Protein Albumin Vitamin B12 480 Folate 18.1 H TSH 1.670 Urine Color Urine Clarity Urine pH Ur Specific Traver Urine Protein Urine Glucose (UA) Urine Ketones Urine Occult Blood Urine Nitrate Urine Bilirubin Urine Urobilinogen Ur Leukocyte Esterase Urine RBC Urine WBC Ur Squamous Epith Cells Amorphous Sediment Urine Bacteria Urine Mucus Micro UA Comment Ur Microscopic Review Urine Culture Comments 05/10/18 05/11/18 05/11/18 14:44 07:45 07:45 WBC 6.6 RBC 4.06 L Hgb 11.2 L Hct 32.3 L MCV 79.5 L MCH 27.5 MCHC 34.6 RDW 13.6 Plt Count 183 MPV 8.4 Neut % (Auto) 45.2 Lymph % (Auto) 38.5 Harrison % (Auto) 9.4 H Eos % (Auto) 5.2 H Baso % (Auto) 1.7 Neut # (Auto) 3.0 Lymph # (Auto) 2.5 Harrison # (Auto) 0.6 Eos # (Auto) 0.3 Baso # (Auto) 0.1 WBC Differential . Differential Comment Auto diff final PT INR APTT Sodium 139 Potassium 3.6 Chloride 106 Carbon Dioxide 26.0 Anion Gap 7 BUN 37 H Creatinine 2.63 H Estimated GFR 25 L Random Glucose 85 Lactic Acid Calcium 8.7 Magnesium Total Bilirubin AST ALT Alkaline Phosphatase Total Creatine Kinase CK-MB (CK-2) CK-MB (CK-2) % Total Protein Albumin Vitamin B12 Folate TSH Urine Color Yellow Urine Clarity Clear Urine pH 5.0 Ur Specific Traver 1.014 Urine Protein 100 H Urine Glucose (UA) 50 Urine Ketones Negative Urine Occult Blood Moderate H Urine Nitrate Negative Urine Bilirubin Negative Urine Urobilinogen Less than 2 Ur Leukocyte Esterase Negative Urine RBC 6 H Urine WBC 1 Ur Squamous Epith Cells <1 Amorphous Sediment Occasional H Urine Bacteria Occasional H Urine Mucus Few H Micro UA Comment Culture not ind Ur Microscopic Review Not Reportable Urine Culture Comments Culture not ind Microbiology 05/10/18 14:17 Blood - Peripheral Aerobic Blood Culture - Preliminary No growth in 1 day 05/10/18 14:17 Blood - Peripheral Anaerobic Blood Culture - Preliminary No growth in 1 day 05/10/18 14:12 Blood - Peripheral Aerobic Blood Culture - Preliminary No growth in 1 day 05/10/18 14:12 Blood - Peripheral Anaerobic Blood Culture - Preliminary No growth in 1 day - Imaging Impressions Head CT 05/10/18 13:34 CONCLUSION: 1. No acute abnormality seen. 2. Atrophy. 3. Suspected small vessel ischemic demyelination. 4. Stable encephalomalacia at the right temporal lobe. . Abdomen/Pelvis CT 05/10/18 13:50 CONCLUSION: 1. The cause of the patient's left flank pain is not seen. 2. Atherosclerotic change including borderline aneurysmal dilatation of the proximal abdominal aorta measuring 3 cm. Assessment and Plan - Plan 62 Y/O male sent to the ED for the second time today for reported worsening confusion and inability to ambulate. Initial workup in the ED revealed no acute changes for head/pelvis/abdomen CT. He does have acute on chronic renal failure. Acute on chronic renal failure -Likely prerenal from dehydration. He does have a history of alcoholism. Unclear if he is still drinking. Can also be adverse effects from NSAIDS. He has been taking Meloxicam -No evidence of obstruction. He has been voiding/incontinent in the ED. -IVF for hydration. Stop Meloxicam -Cont IVF for now, [employer] improving. Fluid overload. Reported altered mental status -Conflicting reports. Per review of records EMS states his mental status is at baseline. Could be due to uremia vs alcohol dementia. Delirium also possible -CT head no acute abnormality, atrophy. Suspected small vessel ischemic demyelination. Stable encephalomalacia of the right temporal -B12 480, Folate 18.1, TSH 1.670 -Patient continues to be confuse. Does not know where he lives or where he is at. Stating it is 1978. Gait Abnormalities - most likely related to above - PT consult. He does have shuffling gait at baseline. Bipolar Disorder -Pt is currently taking Sertraline and Trazodone followed by Dr. Espitia outpatient -Hold Sertraline until evaluated by psych. -Consult Psychiatry to assist with psych medication management. -Continue Trazodone. Chronic back pain -Add low dose Tramadol -PT to evaluate. HTN: stable -Continue hydralazine and Nifedipine History of Alcohol abuse: Unclear if he is still drinking -Monitor for signs of withdrawal. DVT PPx, Heparin Code Status: Full code Discussed Condition With: Discussed with patient, nursing, Dr. eD La Rosa Discharge Planning: Plan to discharge back to [facility] when clinically improved
--- NOTE | 2018-05-11 14:18 | P.CONPSY ---
Provisional Diagnosis Admission Date: May 10, 2018 17:06 [place].: Delirium due to underlying medical conditions, history of depression and alcohol use disorder History of Present Illness Service: Medicne Primary Care Provider: No Primary Care Physician Chief Complaint: Altered Mental Status and Gait Abnormalities History of Present Illness: The patient is a 62-year-old man, domiciled in [facility], single, unemployed, supported by [facility], with a psychiatric history of alcohol use disorder, Bipolar Depression, malingering, previous psychiatric admissions, last hospitalization was here in [place] in 2017, recommendations reviewed, previous suicidal attempts, he has been treated with Zoloft and trazodone by obesity psychiatrist, medical history of HTN, who presented to the ED for a second time today via EMS as staff reported new onset Altered Mental Status and Gait Abnormalities resulting in inability to ambulate. He was d/c from [place] ED back to [facility] this morning after being evaluated for Back Pain last night. Upon return, [facility] staff noticed worsened shuffling gait, impaired ambulation, and altered mental status below baseline. Admitted due to Acute Kidney Injury BUN 51, Cr 3.31), CT Head = Atrophy, Suspected Small Vessel Ischemic Demyelination, Stable Encephalomalacia of Right Temporal Lobe, No acute abnormality. Consulted to psychiatry to address altered mental status. Recommendation reviewed. Case discussed with primary medical team. On my psychiatric evaluation I find a patient that is oppositional, quite guarded, with a very reticent and monotonous speech. Prominent flat affect and decreased language production. He reports feeling better. He denies pain, distress, denies anxiety, denies depressed mood. He says that his mood is quite fine. He denies suicidal and homicidal ideation, denies visual and auditory hallucinations. He is oriented x3. He does present very frequent odd/ bizarre/voluntary movements. For example, he usually put his right hand inside of his mouth, wet his finger with his tongue and then touches his clothes. When I asking about this behavior he says that "do not worry", but will not elaborate about it. Collateral info obtained from Jeffy at [facility], by Andrea Cook, MS3, states that he can normally hold a conversation and takes small shuffling steps on his own; however, after returning from ED, he could not stand up/sit up on his own and told EMS that the year is 1985. Collateral Info obtained from Nurse Tonny, who took care of him last night, states that he is somewhat decompensated mentally from prior visit. Pt is unable to provide any valuable information at this time, Oriented x2 (situation, place), appears agitated and restless, answers all questions with "no", states that he is "pissed off" but declines to say why, NAD, and requires physical assistance to sit up in bed. Patient Endorses Generalized Pain stating "I always have pain", all other ROS negative per pt. He also denies any hx of medical issues or substance abuse. Review of Systems All other systems reviewed negative except as stated in HPI PMFSH - History History Provided By: Patient (Poor Reliability at this time given mental status) , Friend (Jeffy - Joaquina Padma), Medical Record - Medical History Medical History: Medical History (Last Reviewed 05/11/18 @ 13:57 by Daria Kumar, PT) Depression HTN (hypertension) - Tobacco History Second Hand Smoke Exposure: Yes Tobacco Use In Past 30 Days: Yes Smoking Status: Current every day smoker Tobacco Type: Cigarettes - Alcohol History How Often Do You Have a Drink Containing Alcohol: 2 to 4 times a month - Substance Use History Substance History: No History of Abuse - Travel History Recent Travel in the [facility] Within the Last 8 Weeks: No - Immunization History Tetanus Immunization: Unsure Tetanus Immunization Year if Known: 2015 Medications and Allergies Active Medications: Active Medications Acetaminophen (Tylenol) 650 mg PO Q4H PRN PRN Reason: Temp > 100.4 Al Hydroxide/Mg Hydroxide (Milk Of Magnesia Liq) 30 ml PO Q12H PRN PRN Reason: Mild Constipation Baclofen (Lioresal) 10 mg PO TID [facility] Last Admin: 05/11/18 12:17 Dose: 10 mg Bisacodyl (Dulcolax Supp) 10 mg RECTAL DAILY PRN PRN Reason: SEVERE CONSITIPATION Heparin Sodium (Porcine) (Heparin Inj) 5,000 units SQ Q12H [facility] Last Admin: 05/11/18 05:33 Dose: 5,000 units Hydralazine HCl (Apresoline) 25 mg PO TID [facility] Last Admin: 05/11/18 12:17 Dose: 25 mg Lactulose (Lactulose Liq) 30 ml PO DAILY PRN PRN Reason: SEVERE CONSITIPATION Nifedipine (Procardia Xl) 60 mg PO DAILY [facility] Last Admin: 12/10/18 10:06 Dose: 60 mg Ondansetron HCl (Zofran Inj) 4 mg IV.PUSH Q6H PRN PRN Reason: NAUSEA OR VOMITING Senna/Docusate Sodium (Quita-Colace) 1 tab PO BID [facility] Last Admin: 05/11/18 10:05 Dose: 1 tab Sennosides (Senokot) 17.2 mg PO Q12H PRN PRN Reason: Moderate Constipation Sodium Chloride (Ns Flush) 2 ml IV.FLUSH PRN PRN PRN Reason: FLUSH AFTER USING IV ACCESS Sodium Chloride (Ns Flush) 2 ml IV.FLUSH BID [facility] Last Admin: 05/11/18 10:05 Dose: 2 ml Sodium Chloride (Ns Flush) 2 ml IV.FLUSH PRN PRN PRN Reason: FLUSH AFTER USING IV ACCESS Tramadol HCl (Ultram) 50 mg PO Q6H PRN PRN Reason: PAIN SCALE 6 TO 10 Trazodone HCl (Desyrel) 50 mg PO [facility] Last Admin: 05/10/18 23:40 Dose: 50 mg Allergies Allergy/AdvReac Type Severity Reaction Status Date / Time cephalexin Allergy Severe SWELLING/RA Verified 04/09/18 17:18 codeine Allergy Severe Swelling Verified 04/09/18 17:18 Home Medications Medication Instructions Recorded Confirmed Type hydralazine 25 mg PO TID 02/09/18 05/10/18 History meloxicam 15 mg PO DAILY 02/09/18 05/10/18 History nifedipine 60 mg PO DAILY 02/09/18 05/10/18 History sertraline [Zoloft] 50 mg PO DAILY 02/09/18 05/10/18 History baclofen 10 mg PO TID 05/10/18 05/10/18 History trazodone 50 mg PO HS 05/10/18 05/10/18 History Exam Vital signs: Vital Signs 05/10/18 14:29 05/10/18 20:00 05/11/18 00:00 Temperature 98.2 F 97.4 F L Pulse Rate 66 83 103 H Respiratory Rate 12 17 20 Blood Pressure 185/104 H 183/103 H 156/73 H Pulse Oximetry 98 99 98 05/11/18 04:00 05/11/18 07:50 05/11/18 08:00 Temperature 97.6 F 97.7 F Pulse Rate 62 61 Respiratory Rate 19 20 Blood Pressure 151/86 H 141/92 H Pulse Oximetry 97 97 97 05/11/18 11:45 Temperature 97.3 F L Pulse Rate 85 Respiratory Rate 16 Blood Pressure 150/87 H Pulse Oximetry 97 Intake & Output 05/10/18 05/11/18 05/11/18 18:59 06:59 18:59 Intake Total 1000 / 1000 1060 / 1060 Balance 1000 / 1000 1060 / 1060 Weight 74.843 kg 74 kg Intake: IV 1000 / 1000 1000 / 1000 D5W/1/2NS + KCL 20 mEq Inj 1, 1000 / 1000 000 ML @ 100 mls/hr IV.CONT . Q10H [facility] Rx#:[id number] NS Inj 1,000 ML @ 1000 mls/hr 1000 / 1000 IV.SIG BOLUS [facility] Rx#:[id number] Oral 60 / 60 Mental Status Examination Appearance: Appropriate Consciousness: Alert Orientation: x4 Motor Activity: Normal gait Speech: Hesitant Language: Adequate Fund of Knowledge: Adequate Attention and Concentration: Adequate Memory: Unremarkable Mood: Irritable Affect: Flat Thought Process & Associations: Intact Thought Content: Appropriate Hallucination Type: None Delusion Type: None Suicidal Ideation: No Suicidal Plan: No Suicidal Intention: No Homicidal Ideation: No Homicidal Plan: No Homicidal Intention: No Insight: Fair Judgment: Impulsive Assessment and Plan - Assessment (1) Delirium due to another medical condition Code(s): F05 - Delirium due to known physiological condition Status: Acute (2) Delirium Code(s): R41.0 - Disorientation, unspecified Status: Acute (3) Delirium Code(s): R41.0 - Disorientation, unspecified Status: Acute - Plan Plan: On psychiatric evaluation today the patient presents oppositional, guarded, with decreases preach production, with marked psychomotor retardation, but reporting feeling better. The patient denies symptoms of depression, denies anxiety, denies angeles and psychosis. He denies suicidal and homicidal ideation , he denies visual and auditory hallucinations. Patient is fully oriented x3, no attention deficit, no fluctuation of consciousness present. He does present quite bizarre posture and behavior, but does not seem to be floridly psychotic. He has a psychiatric history of bipolar depression, previous psychiatric hospitalizations, no previous suicidal attempts. Agree with discontinuing Zoloft to avoid flipping the patient to a bipolar angeles. Continue trazodone 15 mg at bedtime. No indication for psychiatric admission at this moment. We will continue follow-up Justification for Continued Inpatient Stay: No admission indicated
--- NOTE | 2018-05-11 18:58 | ECG ---
Date Performed: 05/10/2018 Time Performed: 14:27:24 PTAGE: 62 years EKG: Sinus rhythm VOLTAGE CRITERIA FOR LVH ABNORMAL ECG PREVIOUS TRACING : 12/12/2016 22.16 Since the previous tracing, no significant change noted DOCTOR: Isaias Napoles Interpretating Date/Time 05/11/2018 18:55:38
[2018-05-11] MEDS: traZODone 50 MG Tablet PO SCH (21:20)
[2018-05-11] MEDS: Sodium Chloride 0.45 % Inj 1,000 ML IV.CONT SCH (21:21)
[2018-05-12] MEDS: Heparin - SQ 10,000 UNITS/ML Vial SQ SCH ×2 (05:39→17:55)
[2018-05-12] MEDS: Baclofen 10 MG Tablet PO SCH ×3 (09:16→17:55)
[2018-05-12] MEDS: Senna/Docusate Sodium 8.6/50 MG Tablet PO SCH ×2 (09:16→20:47)
[2018-05-12] MEDS: hydrALAZINE 25 MG Tablet PO SCH ×3 (09:16→17:55)
[2018-05-12] MEDS: Sodium Chloride 0.45 % Inj 1,000 ML IV.CONT SCH ×2 (10:10→11:27)
--- NOTE | 2018-05-12 16:58 | P.PNIM ---
Subjective Interval history: Follow-up visit altered mental status, EtOH, bipolar disorder, hypertension, and acute renal failure. Patient examined laying in bed, stated do not have any complaints. Patient denies any pain or shortness of breath, denies any headache or dizziness, denies any abdominal pain, nausea, vomiting, diarrhea or constipation. Patient denies any fever or chills. Physical Exam Vital signs: Vital Signs 05/11/18 20:00 05/12/18 00:00 05/12/18 03:50 Temperature 98.9 F 97.9 F 97.8 F Pulse Rate 73 59 L 61 Respiratory Rate 20 20 20 Blood Pressure 174/89 H 159/96 H 174/97 H Pulse Oximetry 98 97 94 L 05/12/18 04:00 05/12/18 07:47 05/12/18 08:00 Temperature 98.0 F 97.6 F Pulse Rate 59 L 58 L Respiratory Rate 20 16 Blood Pressure 155/87 H 160/96 H Pulse Oximetry 97 97 95 05/12/18 08:40 05/12/18 13:29 Temperature 98.5 F Pulse Rate 63 Respiratory Rate 20 Blood Pressure 173/95 H Pulse Oximetry 95 95 Intake & Output 05/11/18 05/12/18 05/12/18 18:59 06:59 18:59 Intake Total 1000 / 1000 Output Total 3 / 3 200 / 200 Balance -3 / -3 800 / 800 Weight 62.8 kg Intake: IV 1000 / 1000 1/2 Normal Saline Inj 1,000 ML 1000 / 1000 @ 75 mls/hr IV.CONT .[id number] [facility] Rx#:[id number] Output: Urine 3 / 3 200 / 200 Other: # Voids 1 # Incontinent Voids 2 # Urine Diapers 4 Date of Last Bowel Movement 05/11/18 05/12/18 # Bowel Movements 1 Narrative: GENERAL: Thin appearing, is elderly looking male, in no apparent distress SKIN: Warm and dry. Bilateral lower extremity with extremely dry skin HEAD: Atraumatic. Normocephalic. EYES: Pupils equal and round. No scleral icterus. No injection or drainage. ENT: No nasal bleeding or discharge. Mucous membranes pink and moist. NECK: Trachea midline. No JVD. CARDIOVASCULAR: Regular rate and rhythm. RESPIRATORY: No accessory muscle use. Clear to auscultation. Breath sounds equal bilaterally. GASTROINTESTINAL: Abdomen soft, non-tender, nondistended. MUSCULOSKELETAL: Extremities without clubbing, cyanosis, or edema. No obvious deformities. NEUROLOGICAL: Awake and alert. No obvious cranial nerve deficits. Motor grossly within normal limits. Generalized weakness, moving all 4 extremities normal speech. PSYCHIATRIC: Flat mood and affect; insight and judgment unreliable Results - Labs CBC & Chem 7: 05/11/18 07:45 05/11/18 07:45 Microbiology 05/10/18 14:17 Blood - Peripheral Aerobic Blood Culture - Preliminary No growth in 2 days 05/10/18 14:17 Blood - Peripheral Anaerobic Blood Culture - Preliminary No growth in 2 days 05/10/18 14:12 Blood - Peripheral Aerobic Blood Culture - Preliminary No growth in 2 days 05/10/18 14:12 Blood - Peripheral Anaerobic Blood Culture - Preliminary No growth in 2 days Assessment and Plan - Assessment (1) Altered mental status Code(s): R41.82 - Altered mental status, unspecified Status: Acute (2) Acute kidney injury Code(s): N17.9 - Acute kidney failure, unspecified Status: Acute (3) Elevated CK Code(s): R74.8 - Abnormal levels of other serum enzymes Status: Acute (4) Delirium due to another medical condition Code(s): F05 - Delirium due to known physiological condition Status: Acute - Plan This is a 62 Y/O male sent to the ED for the second time today for reported worsening confusion and inability to ambulate. Initial workup in the ED revealed no acute changes for head/pelvis/abdomen CT. He does have acute on chronic renal failure. Acute on chronic renal failure -Likely prerenal from dehydration. He does have a history of alcoholism. Unclear if he is still drinking. Can also be adverse effects from NSAIDS. He has been taking Meloxicam -No evidence of obstruction. He has been voiding/incontinent in the ED. -IVF for hydration. Stop Meloxicam -Cont IVF for now -follow createnine, improving, 2.63 on 05/11 Altered mental status -Conflicting reports. Per review of records EMS states his mental status is at baseline. -likely due to uremia vs alcohol dementia vs Delirium -CT head no acute abnormality, atrophy. Suspected small vessel ischemic demyelination. Stable encephalomalacia of the right temporal - Folate 18.1, TSH 1.670 -Patient continues to be confused. Does not know where he lives or where he is at. Stating it is 1978. Gait Abnormalities - most likely related AMS/RUSSELL/Generalized weakness - PT consult. He does have shuffling gait at baseline. Bipolar Disorder -Pt is currently taking Sertraline and Trazodone followed by Dr. Espitia outpatient -Psychiatry consultation appreciated: discontinue Zoloft -Continue Trazodone. Chronic back pain -Add low dose Tramadol -PT to evaluate. HTN Blood pressure elevated -Continue Nifedipine, increase hydralazine for elevated blood pressure -And as needed clonidine -Monitor blood pressure, adjust medication as necessary History of Alcohol abuse: Unclear if he is still drinking -Monitor for signs of withdrawal. DVT PPx, Heparin Code Status: Full code Discussed Condition With: Patient and nurse Discharge Planning: Plan to discharge to SNF/rehab/[facility] in 1-2 days
[2018-05-12] MEDS: traZODone 50 MG Tablet PO SCH (20:46)
[2018-05-13] MEDS: Heparin - SQ 10,000 UNITS/ML Vial SQ SCH ×2 (05:04→17:30)
[2018-05-13] MEDS: Sodium Chloride 0.45 % Inj 1,000 ML IV.CONT SCH ×2 (05:26→17:32)
[2018-05-13 08:01] LABS: Baso # (Auto) 0.1 th/mm3 (0.0-0.2); Baso % (Auto) 1.2 % (0.0-2.0); Eos # (Auto) 0.4 th/mm3 (0.0-0.4); Eos % (Auto) 7.3 % (0.0-4.0); Hematocrit 32.8 % (39.0-51.0); Hemoglobin 11.4 gm/dL (13.0-17.0); Lymph # (Auto) 1.8 th/mm3 (1.0-4.8); Lymph % (Auto) 33.6 % (9.0-44.0); Mean Corpuscular HGB Conc 34.9 % (32.0-36.0); Mean Corpuscular Hemoglobin 27.6 pg (27.0-34.0); Mean Corpuscular Volume 79.2 fL (80.0-100.0); Mean Platelet Volume 8.6 fL (7.0-11.0); Mono # (Auto) 0.5 th/mm3 (0.0-0.9); Neut # (Auto) 2.6 th/mm3 (1.8-7.7); Neut % (Auto) 48.9 % (16.0-70.0); Platelet Count 177 th/mm3 (150-450); Red Blood Count 4.13 mil/mm3 (4.50-5.90); Red Cell Distribution Width 13.4 % (11.6-17.2); White Blood Count 5.4 th/mm3 (4.0-11.0)
[2018-05-13 08:25] LABS: Calcium 8.7 mg/dL (8.5-10.1); Carbon Dioxide 27.7 meq/L (21.0-32.0); Potassium 3.7 meq/L (3.5-5.1)
[2018-05-13] MEDS: Baclofen 10 MG Tablet PO SCH ×3 (10:46→17:30)
[2018-05-13] MEDS: hydrALAZINE 25 MG Tablet PO SCH ×2 (10:46→14:33)
[2018-05-13] MEDS: Senna/Docusate Sodium 8.6/50 MG Tablet PO SCH ×2 (10:47→21:46)
--- NOTE | 2018-05-13 13:59 | P.PNIM ---
Subjective Interval history: Follow-up visit altered mental status, EtOH, bipolar disorder, hypertension, and acute renal failure. Patient seen and examined laying in bed, denies any pain or any discomfort, patient stated he is doing fine. Patient identifies his name however when asked where she he lives he stated he lives here. Patient denies any pain or shortness of breath, denies any headache or dizziness , denies any abdominal pain, nausea, vomiting, diarrhea or constipation. Patient denies any fever or chills. Patient get easily irritable with assessment. Nurse denies any acute concerns for the patient. Physical Exam Vital signs: Vital Signs 05/12/18 20:00 05/13/18 00:00 05/13/18 04:00 Temperature 98.4 F 97.6 F 97.8 F Pulse Rate 79 62 64 Respiratory Rate 18 18 20 Blood Pressure 136/86 134/74 129/67 Pulse Oximetry 98 98 98 05/13/18 07:30 05/13/18 08:00 Temperature 97.7 F Pulse Rate 69 Respiratory Rate 20 Blood Pressure 152/97 H Pulse Oximetry 95 95 Intake & Output 05/12/18 05/13/18 05/13/18 18:59 06:59 18:59 Intake Total 1060 / 1060 1000 / 1000 Output Total 400 / 400 300 / 300 Balance 660 / 660 700 / 700 Weight 61.9 kg Intake: IV 1000 / 1000 1000 / 1000 1/2 Normal Saline Inj 1,000 ML 1000 / 1000 1000 / 1000 @ 75 mls/hr IV.CONT .[id number] [facility] Rx#:[id number] Oral 60 / 60 Output: Urine 400 / 400 300 / 300 Other: # Voids 1 # Incontinent Voids 2 # Urine Diapers 4 Date of Last Bowel Movement 05/12/18 05/12/18 05/12/18 # Bowel Movements 1 Narrative: GENERAL: Thin appearing, is elderly looking male, in no apparent distress SKIN: Warm and dry. Bilateral lower extremity with extremely dry skin HEAD: Atraumatic. Normocephalic. EYES: Pupils equal and round. No scleral icterus. No injection or drainage. ENT: No nasal bleeding or discharge. Mucous membranes pink and moist. NECK: Trachea midline. No JVD. CARDIOVASCULAR: Regular rate and rhythm. RESPIRATORY: No accessory muscle use. Clear to auscultation. Breath sounds equal bilaterally. GASTROINTESTINAL: Abdomen soft, non-tender, nondistended. MUSCULOSKELETAL: Extremities without clubbing, cyanosis, or edema. No obvious deformities. NEUROLOGICAL: Awake and alert. No obvious cranial nerve deficits. Motor grossly within normal limits. Generalized weakness, moving all 4 extremities normal speech. PSYCHIATRIC: Irritable mood and affect; insight and judgment unreliable Results - Labs CBC & Chem 7: 05/13/18 07:17 05/13/18 07:17 Laboratory Results - last 24 hr 05/13/18 05/13/18 07:17 07:17 WBC 5.4 RBC 4.13 L Hgb 11.4 L Hct 32.8 L MCV 79.2 L MCH 27.6 MCHC 34.9 RDW 13.4 Plt Count 177 MPV 8.6 Neut % (Auto) 48.9 Lymph % (Auto) 33.6 [place] % (Auto) 9.0 H Eos % (Auto) 7.3 H Baso % (Auto) 1.2 Neut # (Auto) 2.6 Lymph # (Auto) 1.8 [place] # (Auto) 0.5 Eos # (Auto) 0.4 Baso # (Auto) 0.1 WBC Differential . Differential Comment Auto diff final Sodium 137 Potassium 3.7 Chloride 102 Carbon Dioxide 27.7 Anion Gap 7 BUN 41 H Creatinine 2.41 H Estimated GFR 27 L Random Glucose 96 Calcium 8.7 Microbiology 05/10/18 14:17 Blood - Peripheral Aerobic Blood Culture - Preliminary No growth in 3 days 05/10/18 14:17 Blood - Peripheral Anaerobic Blood Culture - Preliminary No growth in 3 days 05/10/18 14:12 Blood - Peripheral Aerobic Blood Culture - Preliminary No growth in 3 days 05/10/18 14:12 Blood - Peripheral Anaerobic Blood Culture - Preliminary No growth in 3 days Assessment and Plan - Assessment (1) Altered mental status Code(s): R41.82 - Altered mental status, unspecified Status: Acute (2) Acute kidney injury Code(s): N17.9 - Acute kidney failure, unspecified Status: Acute (3) Elevated CK Code(s): R74.8 - Abnormal levels of other serum enzymes Status: Acute (4) Delirium due to another medical condition Code(s): F05 - Delirium due to known physiological condition Status: Acute - Plan This is a 62 Y/O male sent to the ED for the second time today for reported worsening confusion and inability to ambulate. Initial workup in the ED revealed no acute changes for head/pelvis/abdomen CT. He does have acute on chronic renal failure. Acute on chronic renal failure -Likely prerenal from dehydration. He does have a history of alcoholism. Unclear if he is still drinking. Can also be adverse effects from NSAIDS. He has been taking Meloxicam -No evidence of obstruction. He has been voiding/incontinent in the ED. - Stop Meloxicam -Cont IVF for hydration -follow creatinine, improving, 2.41 on 05/13 Altered mental status -Conflicting reports. Per review of records EMS states his mental status is at baseline. -likely due to uremia vs alcohol dementia vs Delirium , rule out metabolic causes -CT head no acute abnormality, atrophy. Suspected small vessel ischemic demyelination. Stable encephalomalacia of the right temporal - Folate 18.1, TSH 1.670 -Patient continues to be confused. States that he lives here in the fifth floor -Urinalysis negative -Blood culture no growth in 3 days Gait Abnormalities - most likely related AMS/RUSSELL/Generalized weakness - PT consult. He does have shuffling gait at baseline. Bipolar Disorder -Pt is currently taking Sertraline and Trazodone followed by Dr. Espitia outpatient -Psychiatry consultation appreciated: No indication to be admitted in the psychiatric unit. Discontinue Zoloft -Continue Trazodone. Chronic back pain -Add low dose Tramadol -PT to evaluate. HTN Blood pressure elevated -Continue Nifedipine - increase hydralazine dose for elevated blood pressure, with hold parameters -continue as needed clonidine -Monitor blood pressure, adjust medication as necessary History of Alcohol abuse: Unclear if he is still drinking -Monitor for signs of withdrawal. DVT PPx, Heparin Code Status: Full code Discussed Condition With: Patient and nurse Discharge Planning: Plan to discharge to SNF/rehab/[facility] in 1-2 days when placement available
[2018-05-13] MEDS: hydrALAZINE 50 MG Tablet PO SCH ×2 (17:30→21:46)
[2018-05-13] MEDS: traZODone 50 MG Tablet PO SCH (21:46)
[2018-05-14] MEDS: Sodium Chloride 0.45 % Inj 1,000 ML IV.CONT SCH ×3 (05:19→23:24)
[2018-05-14] MEDS: Heparin - SQ 10,000 UNITS/ML Vial SQ SCH ×2 (05:19→17:34)
[2018-05-14] MEDS: Baclofen 10 MG Tablet PO SCH ×3 (09:00→17:34)
[2018-05-14] MEDS: hydrALAZINE 50 MG Tablet PO SCH ×4 (09:00→20:21)
[2018-05-14] MEDS: Senna/Docusate Sodium 8.6/50 MG Tablet PO SCH ×2 (09:00→20:21)
--- NOTE | 2018-05-14 16:40 | P.PNIM ---
Subjective Interval history: Follow-up visit altered mental status, EtOH, bipolar disorder , hypertension, and acute renal failure. Patient seen and examined laying in bed, complains of back pain of 10 out of 10. Patient states that he had a chronic back pain. Patient stated eating well. Patient denies any headache or dizziness, denies any chest pain or shortness of breath, denies any abdominal pain, nausea, vomiting, diarrhea or constipation. Patient denies any fever or chills. Nurse reported no acute issues overnight Physical Exam Vital signs: Last Vital Signs Temp 97.9 F 05/14/18 16:00 Pulse 76 05/14/18 16:00 Resp 20 05/14/18 16:00 BP 144/86 H 05/14/18 16:00 Pulse Ox 96 05/14/18 16:00 Intake & Output 05/12/18 05/13/18 05/14/18 05/15/18 06:59 06:59 06:59 06:59 Intake Total 2060 / 2060 1000 / 1000 240 / 240 Output Total 3 / 3 700 / 700 900 / 900 200 / 200 Balance -3 / -3 1360 / 1360 100 / 100 40 / 40 Weight 62.8 kg 61.9 kg 60.8 kg Narrative: GENERAL: Thin appearing, is elderly looking male, in no apparent distress SKIN: Warm and dry. Bilateral lower extremity with extremely dry skin HEAD: Atraumatic. Normocephalic. EYES: Pupils equal and round. No scleral icterus. No injection or drainage. ENT: No nasal bleeding or discharge. Mucous membranes pink and moist. NECK: Trachea midline. No JVD. CARDIOVASCULAR: Regular rate and rhythm. RESPIRATORY: No accessory muscle use. Clear to auscultation. Breath sounds equal bilaterally. GASTROINTESTINAL: Abdomen soft, non-tender, nondistended. MUSCULOSKELETAL: Extremities without clubbing, cyanosis, or edema. No obvious deformities. NEUROLOGICAL: Awake and alert. No obvious cranial nerve deficits. Motor grossly within normal limits. Generalized weakness, moving all 4 extremities normal speech. PSYCHIATRIC: Irritable mood and affect; insight and judgment unreliable Results Labs CBC & Chem 7: 05/13/18 07:17 05/13/18 07:17 Labs: Microbiology 05/10/18 14:17 Blood - Peripheral Aerobic Blood Culture - Preliminary No growth in 4 days 05/10/18 14:17 Blood - Peripheral Anaerobic Blood Culture - Preliminary No growth in 4 days 05/10/18 14:12 Blood - Peripheral Aerobic Blood Culture - Preliminary No growth in 4 days 05/10/18 14:12 Blood - Peripheral Anaerobic Blood Culture - Preliminary No growth in 4 days Assessment and Plan (1) Altered mental status: Code(s): R41.82 - Altered mental status, unspecified Status: Acute (2) Acute kidney injury: Code(s): N17.9 - Acute kidney failure, unspecified Status: Acute (3) Elevated CK: Code(s): R74.8 - Abnormal levels of other serum enzymes Status: Acute (4) Delirium due to another medical condition: Code(s): F05 - Delirium due to known physiological condition Status: Acute Plan This is a 62 Y/O male sent to the ED for the second time today for reported worsening confusion and inability to ambulate. Initial workup in the ED revealed no acute changes for head/pelvis/abdomen CT. He does have acute on chronic renal failure. Acute on chronic renal failure -Likely prerenal from dehydration. He does have a history of alcoholism. Unclear if he is still drinking. Can also be adverse effects from NSAIDS. He has been taking Meloxicam -No evidence of obstruction. He has been voiding/incontinent in the ED. - Stop Meloxicam -Cont IVF for hydration -follow creatinine, improving, 2.41 on 05/13 -Encourage increase fluid intake Altered mental status -Conflicting reports. Per review of records EMS states his mental status is at baseline. -likely due to uremia vs alcohol dementia vs Delirium , rule out metabolic causes -CT head no acute abnormality, atrophy. Suspected small vessel ischemic demyelination. Stable encephalomalacia of the right temporal - Folate 18.1, TSH 1.670 -Patient continues to be confused. States that he lives here in the fifth floor -Urinalysis negative -Blood culture no growth in 4 days Gait Abnormalities - most likely related AMS/RUSSELL/Generalized weakness - PT consult. He does have shuffling gait at baseline. -Plan for SNF placement for continuing rehab Bipolar Disorder -Pt is currently taking Sertraline and Trazodone followed by Dr. Espitia outpatient -Psychiatry consultation appreciated: No indication to be admitted in the psychiatric unit. Discontinue Zoloft -Continue Trazodone. -Monitor mental status Chronic back pain -Add low dose Tramadol -PT to evaluate. -Add lidocaine patch, monitor response HTN Blood pressure elevated -Continue Nifedipine - increase hydralazine dose for elevated blood pressure, with hold parameters -continue as needed clonidine -Monitor blood pressure, adjust medication as necessary History of Alcohol abuse: Unclear if he is still drinking -Monitor for signs of withdrawal. -Counseled on alcohol cessation DVT PPx, Heparin Discharge Planning: Plan to discharge to SNF/rehab/[facility] in 1-2 days when placement available _ (1) Altered mental status Qualifiers: Altered mental status type: Coma depth: Coma timing:
[2018-05-14] MEDS: traZODone 50 MG Tablet PO SCH (20:21)
[2018-05-15] MEDS: Heparin - SQ 10,000 UNITS/ML Vial SQ SCH ×2 (05:40→18:08)
[2018-05-15 06:34] LABS: Carbon Dioxide 25.9 meq/L (21.0-32.0); Potassium 3.9 meq/L (3.5-5.1)
[2018-05-15] MEDS: hydrALAZINE 50 MG Tablet PO SCH ×4 (09:27→21:36)
[2018-05-15] MEDS: Senna/Docusate Sodium 8.6/50 MG Tablet PO SCH ×2 (09:27→21:37)
[2018-05-15] MEDS: Baclofen 10 MG Tablet PO SCH ×3 (09:27→18:07)
[2018-05-15] MEDS: Lidocaine 5% Patch T-DERMAL SCH (09:28)
[2018-05-15] MEDS: Sodium Chloride 0.45 % Inj 1,000 ML IV.CONT SCH ×2 (13:04→21:39)
--- NOTE | 2018-05-15 16:36 | P.PNIM ---
Subjective Interval history: Follow-up visit altered mental status, EtOH, bipolar disorder , hypertension, and acute renal failure. She is seen and examined, laying in bed, when asked to identify his name he said no. No verbal response obtained from the patient. Patient looks comfortable laying in bed. Nurse denies any acute issues overnight Physical Exam Vital signs: Last Vital Signs Temp 97.5 F L 05/15/18 12:00 Pulse 73 05/15/18 12:00 Resp 20 05/15/18 12:00 BP 148/78 H 05/15/18 12:00 Pulse Ox 98 05/15/18 12:00 Intake & Output 05/13/18 05/14/18 05/15/18 05/16/18 06:59 06:59 06:59 06:59 Intake Total 2060 / 2060 1000 / 1000 2840 / 2840 1000 / 1000 Output Total 700 / 700 900 / 900 1000 / 1000 Balance 1360 / 1360 100 / 100 1840 / 1840 1000 / 1000 Weight 61.9 kg 60.8 kg 62.8 kg Narrative: GENERAL: Thin appearing, is elderly looking male, in no apparent distress SKIN: Warm and dry. Bilateral lower extremity with extremely dry skin HEAD: Atraumatic. Normocephalic. EYES: Pupils equal and round. No scleral icterus. No injection or drainage. ENT: No nasal bleeding or discharge. Mucous membranes pink and moist. NECK: Trachea midline. No JVD. CARDIOVASCULAR: Regular rate and rhythm. RESPIRATORY: No accessory muscle use. Clear to auscultation. Breath sounds equal bilaterally. GASTROINTESTINAL: Abdomen soft, non-tender, nondistended. MUSCULOSKELETAL: Extremities without clubbing, cyanosis, or edema. No obvious deformities. NEUROLOGICAL: Awake and alert. No obvious cranial nerve deficits. Motor grossly within normal limits. Generalized weakness, moving all 4 extremities. Very minimal but normal speech. PSYCHIATRIC: Irritable mood and affect; insight and judgment unreliable Results Labs CBC & Chem 7: 05/13/18 07:17 05/15/18 05:15 Labs: Microbiology 05/10/18 14:17 Blood - Peripheral Aerobic Blood Culture - Final No growth in 5 days 05/10/18 14:17 Blood - Peripheral Anaerobic Blood Culture - Final No growth in 5 days 05/10/18 14:12 Blood - Peripheral Aerobic Blood Culture - Final No growth in 5 days 05/10/18 14:12 Blood - Peripheral Anaerobic Blood Culture - Final No growth in 5 days Assessment and Plan (1) Altered mental status: Code(s): R41.82 - Altered mental status, unspecified Status: Acute (2) Acute kidney injury: Code(s): N17.9 - Acute kidney failure, unspecified Status: Acute (3) Elevated CK: Code(s): R74.8 - Abnormal levels of other serum enzymes Status: Acute (4) Delirium due to another medical condition: Code(s): F05 - Delirium due to known physiological condition Status: Acute Plan This is a 62 Y/O male sent to the ED for the second time today for reported worsening confusion and inability to ambulate. Initial workup in the ED revealed no acute changes for head/pelvis/abdomen CT. He does have acute on chronic renal failure. Acute on chronic renal failure -Likely prerenal from dehydration. He does have a history of alcoholism. Unclear if he is still drinking. Can also be adverse effects from NSAIDS. He has been taking Meloxicam -No evidence of obstruction. He has been voiding/incontinent in the ED. - Stop Meloxicam -Cont IVF for hydration -follow creatinine, improving, 2.26 on 05/15 -Encourage increase fluid intake Altered mental status -Conflicting reports. Per review of records EMS states his mental status is at baseline. -likely due to uremia vs alcohol dementia vs Delirium , rule out metabolic causes -CT head no acute abnormality, atrophy. Suspected small vessel ischemic demyelination. Stable encephalomalacia of the right temporal - Folate 18.1, TSH 1.670 -Patient continues to be confused. States that he lives here in the fifth floor -Urinalysis negative -Blood culture no growth in 5 days Gait Abnormalities - most likely related AMS/RUSSELL/Generalized weakness - PT consult. He does have shuffling gait at baseline. -Plan for SNF placement for continuing rehab and assistance with ADLs Bipolar Disorder -Pt is currently taking Sertraline and Trazodone followed by Dr. Espitia outpatient -Psychiatry consultation appreciated: No indication to be admitted in the psychiatric unit. Discontinue Zoloft -Continue Trazodone. -Patient with irritable mood -Monitor mental status Chronic back pain -Add low dose Tramadol -PT to evaluate. -Add lidocaine patch, monitor response HTN Blood pressure elevated, improving -Continue Nifedipine - increase hydralazine dose for elevated blood pressure, with hold parameters -continue as needed clonidine -Monitor blood pressure, adjust medication as necessary History of Alcohol abuse: Unclear if he is still drinking -Monitor for signs of withdrawal. -Counseled on alcohol cessation DVT PPx, Heparin Discharge Planning: Plan to discharge to SNF/rehab/[facility] in 1-2 days when placement available _ (1) Altered mental status Qualifiers: Altered mental status type: Coma depth: Coma timing:
[2018-05-15] MEDS: traZODone 50 MG Tablet PO SCH (21:36)
[2018-05-16] MEDS: Heparin - SQ 10,000 UNITS/ML Vial SQ SCH ×2 (05:49→18:26)
[2018-05-16] MEDS: Sodium Chloride 0.45 % Inj 1,000 ML IV.CONT SCH ×2 (06:21→16:16)
[2018-05-16] MEDS: Lidocaine 5% Patch T-DERMAL SCH (10:03)
[2018-05-16] MEDS: Baclofen 10 MG Tablet PO SCH ×3 (10:03→18:26)
[2018-05-16] MEDS: Senna/Docusate Sodium 8.6/50 MG Tablet PO SCH ×2 (10:03→22:18)
[2018-05-16] MEDS: hydrALAZINE 50 MG Tablet PO SCH ×2 (10:03→13:11)
[2018-05-16 10:14] LABS: Calcium 8.5 mg/dL (8.5-10.1); Carbon Dioxide 27.5 meq/L (21.0-32.0); Potassium 4.3 meq/L (3.5-5.1)
--- NOTE | 2018-05-16 16:41 | P.PNIM ---
Subjective Interval history: Follow-up visit altered mental status, EtOH, bipolar disorder , hypertension, and acute renal failure. Patient looks comfortable laying in bed. Patient seen and examined laying in bed, smiling, very minimal verbal response. Patient denies any pain or shortness of breath, denies any discomfort. Patient denies any abdominal pain, nausea, vomiting, diarrhea or constipation. Nurse denies any acute issues overnight Physical Exam Vital signs: Last Vital Signs Temp 97.4 F L 05/16/18 08:00 Pulse 69 05/16/18 08:00 Resp 20 05/16/18 08:00 BP 154/87 H 05/16/18 08:00 Pulse Ox 96 05/16/18 08:00 Intake & Output 05/14/18 05/15/18 05/16/18 05/17/18 06:59 06:59 06:59 06:59 Intake Total 1000 / 1000 2840 / 2840 3360 / 3360 1000 / 1000 Output Total 900 / 900 1000 / 1000 Balance 100 / 100 1840 / 1840 3360 / 3360 1000 / 1000 Weight 60.8 kg 62.8 kg 63.6 kg Narrative: GENERAL: Thin appearing, is elderly looking male, in no apparent distress SKIN: Warm and dry. Bilateral lower extremity with extremely dry skin HEAD: Atraumatic. Normocephalic. EYES: Pupils equal and round. No scleral icterus. No injection or drainage. ENT: No nasal bleeding or discharge. Mucous membranes pink and moist. NECK: Trachea midline. No JVD. CARDIOVASCULAR: Regular rate and rhythm. RESPIRATORY: No accessory muscle use. Clear to auscultation. Breath sounds equal bilaterally. GASTROINTESTINAL: Abdomen soft, non-tender, nondistended. MUSCULOSKELETAL: Extremities without clubbing, cyanosis, or edema. No obvious deformities. With muscle wasting. NEUROLOGICAL: Awake and alert. No obvious cranial nerve deficits. Motor grossly within normal limits. Generalized weakness, moving all 4 extremities. Very minimal but normal speech. PSYCHIATRIC: Irritable mood and affect; insight and judgment unreliable Results Labs CBC & Chem 7: 05/13/18 07:17 05/16/18 09:07 Assessment and Plan (1) Altered mental status: Code(s): R41.82 - Altered mental status, unspecified Status: Acute (2) Acute kidney injury: Code(s): N17.9 - Acute kidney failure, unspecified Status: Acute (3) Elevated CK: Code(s): R74.8 - Abnormal levels of other serum enzymes Status: Acute (4) Delirium due to another medical condition: Code(s): F05 - Delirium due to known physiological condition Status: Acute Plan This is a 62 Y/O male sent to the ED for the second time today for reported worsening confusion and inability to ambulate. Initial workup in the ED revealed no acute changes for head/pelvis/abdomen CT. He does have acute on chronic renal failure. Acute on chronic renal failure -Likely prerenal from dehydration. He does have a history of alcoholism. Unclear if he is still drinking. Can also be adverse effects from NSAIDS. He has been taking Meloxicam -No evidence of obstruction. He has been voiding/incontinent in the ED. - Stop Meloxicam -Cont IVF for hydration -follow creatinine, improving, 2.26 on 05/15 -Encourage increase fluid intake Altered mental status -Conflicting reports. Per review of records EMS states his mental status is at baseline. -likely due to uremia vs alcohol dementia vs Delirium , rule out metabolic causes -CT head no acute abnormality, atrophy. Suspected small vessel ischemic demyelination. Stable encephalomalacia of the right temporal - Folate 18.1, TSH 1.670 -Patient continues to be confused. States that he lives here in the fifth floor -Urinalysis negative -Blood culture no growth in 5 days Gait Abnormalities - most likely related AMS/RUSSELL/Generalized weakness - PT consult. He does have shuffling gait at baseline. -Plan for SNF placement for continuing rehab and assistance with ADLs -PT reported patient refused physical therapy/out of bed or walking. Bipolar Disorder -Pt is currently taking Sertraline and Trazodone followed by Dr. Espitia outpatient -Psychiatry consultation appreciated: No indication to be admitted in the psychiatric unit. Discontinue Zoloft -Continue Trazodone. -Patient with irritable mood -Monitor mental status Chronic back pain -Add low dose Tramadol -PT to evaluate. -Add lidocaine patch, monitor response HTN Blood pressure elevated, still elevated -Continue Nifedipine - increased hydralazine dose again for elevated blood pressure, with hold parameters -continue as needed clonidine -Monitor blood pressure, adjust medication as necessary History of Alcohol abuse: Unclear if he is still drinking -Monitor for signs of withdrawal. -Counseled on alcohol cessation DVT PPx, Heparin Discharge Planning: Plan to discharge to SNF/rehab/[facility] in 1-2 days when placement available _ (1) Altered mental status Qualifiers: Altered mental status type: Coma depth: Coma timing:
[2018-05-16] MEDS: hydrALAZINE 25 MG Tablet PO SCH ×2 (18:27→22:17)
[2018-05-16] MEDS: traZODone 50 MG Tablet PO SCH (22:17)
[2018-05-17] MEDS: Sodium Chloride 0.45 % Inj 1,000 ML IV.CONT SCH ×3 (02:46→22:25)
[2018-05-17] MEDS: Heparin - SQ 10,000 UNITS/ML Vial SQ SCH ×2 (06:51→17:52)
[2018-05-17] MEDS: Baclofen 10 MG Tablet PO SCH ×3 (08:43→17:53)
[2018-05-17] MEDS: hydrALAZINE 25 MG Tablet PO SCH ×4 (08:43→21:11)
[2018-05-17] MEDS: Senna/Docusate Sodium 8.6/50 MG Tablet PO SCH ×2 (08:43→21:12)
[2018-05-17] MEDS: Lidocaine 5% Patch T-DERMAL SCH (08:46)
--- NOTE | 2018-05-17 13:02 | P.PNIM ---
Subjective Interval history: Follow-up visit altered mental status, EtOH, bipolar disorder , hypertension, and acute renal failure. Patient seen and examined laying in bed, more verbally responsive at this time. Patient answers questions very minimal. Patient looks comfortable laying in bed. Patient denies any pain or discomfort. When asked to get to be out of bed up in a chair stated "I do not know about that"however encouraged the patient to be out of bed with physical therapy. PT reported yesterday the patient was refusing to be out of bed. Patient denies any headache or dizziness, denies any chest pain or shortness of breath, denies any abdominal pain, nausea, vomiting, diarrhea or constipation. Patient states that he had a good bowel movement. Patient denies any fever or chills. Nurse reported no acute issues overnight Physical Exam Vital signs: Last Vital Signs Temp 97.6 F 05/17/18 07:15 Pulse 67 05/17/18 07:15 Resp 14 05/17/18 07:15 BP 154/88 H 05/17/18 07:15 Pulse Ox 98 05/17/18 07:15 Intake & Output 05/15/18 05/16/18 05/17/18 05/18/18 06:59 06:59 06:59 06:59 Intake Total 2840 / 2840 3360 / 3360 2720 / 2720 Output Total 1000 / 1000 100 / 100 Balance 1840 / 1840 3360 / 3360 2620 / 2620 Weight 62.8 kg 63.6 kg 63.2 kg Narrative: GENERAL: Thin appearing, is elderly looking male, in no apparent distress SKIN: Warm and dry. Bilateral lower extremity with extremely dry skin HEAD: Atraumatic. Normocephalic. EYES: Pupils equal and round. No scleral icterus. No injection or drainage. ENT: No nasal bleeding or discharge. Mucous membranes pink and moist. NECK: Trachea midline. No JVD. CARDIOVASCULAR: Regular rate and rhythm. RESPIRATORY: No accessory muscle use. Clear to auscultation. Breath sounds equal bilaterally. GASTROINTESTINAL: Abdomen soft, non-tender, nondistended. MUSCULOSKELETAL: Extremities without clubbing, cyanosis, or edema. No obvious deformities. With muscle wasting. NEUROLOGICAL: Awake and alert. No obvious cranial nerve deficits. Motor grossly within normal limits. Generalized weakness, moving all 4 extremities. Very minimal but normal speech. PSYCHIATRIC: Irritable mood and affect; insight and judgment unreliable Results Labs CBC & Chem 7: 05/13/18 07:17 05/16/18 09:07 Assessment and Plan (1) Altered mental status: Code(s): R41.82 - Altered mental status, unspecified Status: Acute (2) Acute kidney injury: Code(s): N17.9 - Acute kidney failure, unspecified Status: Acute (3) Elevated CK: Code(s): R74.8 - Abnormal levels of other serum enzymes Status: Acute (4) Delirium due to another medical condition: Code(s): F05 - Delirium due to known physiological condition Status: Acute Plan This is a 62 Y/O male sent to the ED for the second time today for reported worsening confusion and inability to ambulate. Initial workup in the ED revealed no acute changes for head/pelvis/abdomen CT. He does have acute on chronic renal failure. Acute on chronic renal failure -Likely prerenal from dehydration. He does have a history of alcoholism. Unclear if he is still drinking. Can also be adverse effects from NSAIDS. He has been taking Meloxicam -No evidence of obstruction. He has been voiding/incontinent in the ED. - Stop Meloxicam -Cont IVF for hydration -follow creatinine, persistent elevation 2.33 today despite continuous IVF, medications reviewed. Will decrease Baclofen dose and wean down to DC. Follow renal indices -Encourage increase fluid intake Altered mental status -Conflicting reports. Per review of records EMS states his mental status is at baseline. -likely due to uremia vs alcohol dementia vs Delirium , rule out metabolic causes -CT head no acute abnormality, atrophy. Suspected small vessel ischemic demyelination. Stable encephalomalacia of the right temporal - Folate 18.1, TSH 1.670 -Patient continues to be confused. States that he lives here in the fifth floor -Urinalysis negative -Blood culture no growth in 5 days Gait Abnormalities - Generalized weakness most likely related AMS/RUSSELL/Generalized weakness - PT consult. He does have shuffling gait at baseline. -Plan for SNF placement for continuing rehab and assistance with ADLs -continue PT. PT reported patient refused physical therapy/out of bed or walking. Bipolar Disorder -Pt is currently taking Sertraline and Trazodone followed by Dr. Espitia outpatient -Psychiatry consultation appreciated: No indication to be admitted in the psychiatric unit. Discontinue Zoloft -Continue Trazodone. -Patient with irritable mood -Monitor mental status Chronic back pain -Add low dose Tramadol -PT to evaluate. -Add lidocaine patch, monitor response HTN Blood pressure elevated, still elevated -Continue Nifedipine - continue hydralazine for elevated blood pressure, with hold parameters -continue as needed clonidine -Monitor blood pressure, adjust medication as necessary History of Alcohol abuse: Unclear if he is still drinking -Monitor for signs of withdrawal. -Counseled on alcohol cessation DVT PPx, Heparin Discharge Planning: Plan to discharge to SNF/rehab/[facility] in 1-2 days when placement available _ (1) Altered mental status Qualifiers: Altered mental status type: Coma depth: Coma timing:
[2018-05-17] MEDS: traZODone 50 MG Tablet PO SCH (21:11)
[2018-05-18] MEDS: Heparin - SQ 10,000 UNITS/ML Vial SQ SCH ×2 (05:09→18:36)
[2018-05-18] MEDS: Sodium Chloride 0.45 % Inj 1,000 ML IV.CONT SCH ×3 (09:09→21:03)
[2018-05-18] MEDS: hydrALAZINE 25 MG Tablet PO SCH ×4 (09:10→21:02)
[2018-05-18] MEDS: Senna/Docusate Sodium 8.6/50 MG Tablet PO SCH ×2 (09:11→21:02)
[2018-05-18] MEDS: Baclofen 10 MG Tablet PO SCH ×3 (09:11→18:37)
[2018-05-18] MEDS: Lidocaine 5% Patch T-DERMAL SCH (09:12)
--- NOTE | 2018-05-18 11:14 | P.PNIM ---
Subjective Interval history: Follow-up visit altered mental status, EtOH, bipolar disorder , hypertension, and acute renal failure. Patient seen and examined, laying in bed, very reserved, and very minimal verbal response. Patient denies any pain or shortness of breath, denies any discomfort, gets very irritable easily for questions. However patient follows commands. Nurse denies any acute issues overnight Physical Exam Vital signs: Last Vital Signs Temp 97.8 F 05/18/18 08:00 Pulse 68 05/18/18 08:00 Resp 16 05/18/18 08:00 BP 156/87 H 05/18/18 08:00 Pulse Ox 98 05/18/18 08:00 Intake & Output 05/16/18 05/17/18 05/18/18 05/19/18 06:59 06:59 06:59 06:59 Intake Total 3360 / 3360 2720 / 2720 4200 / 4200 1000 / 1000 Output Total 100 / 100 1400 / 1400 Balance 3360 / 3360 2620 / 2620 2800 / 2800 1000 / 1000 Weight 63.6 kg 63.2 kg 62.9 kg Narrative: GENERAL: Thin appearing, is elderly looking male, in no apparent distress SKIN: Warm and dry. Bilateral lower extremity with extremely dry skin HEAD: Atraumatic. Normocephalic. EYES: Pupils equal and round. No scleral icterus. No injection or drainage. ENT: No nasal bleeding or discharge. Mucous membranes pink and moist. NECK: Trachea midline. No JVD. CARDIOVASCULAR: Regular rate and rhythm. RESPIRATORY: No accessory muscle use. Clear to auscultation. Breath sounds equal bilaterally. GASTROINTESTINAL: Abdomen soft, non-tender, nondistended. MUSCULOSKELETAL: Extremities without clubbing, cyanosis, or edema. No obvious deformities. With muscle wasting. NEUROLOGICAL: Awake and alert. Motor grossly within normal limits. Generalized weakness, moving all 4 extremities. Very minimal but normal speech. PSYCHIATRIC: Irritable mood and affect; insight and judgment unreliable Results Labs CBC & Chem 7: 05/13/18 07:17 05/16/18 09:07 Assessment and Plan (1) Altered mental status: Code(s): R41.82 - Altered mental status, unspecified Status: Acute (2) Acute kidney injury: Code(s): N17.9 - Acute kidney failure, unspecified Status: Acute (3) Elevated CK: Code(s): R74.8 - Abnormal levels of other serum enzymes Status: Acute (4) Delirium due to another medical condition: Code(s): F05 - Delirium due to known physiological condition Status: Acute Plan This is a 62 Y/O male sent to the ED for the second time today for reported worsening confusion and inability to ambulate. Initial workup in the ED revealed no acute changes for head/pelvis/abdomen CT. He does have acute on chronic renal failure. Acute on chronic renal failure -Likely prerenal from dehydration. He does have a history of alcoholism. Unclear if he is still drinking. Can also be adverse effects from NSAIDS. He has been taking Meloxicam -No evidence of obstruction. He has been voiding/incontinent in the ED. - Stop Meloxicam -Cont IVF for hydration -follow creatinine, persistent elevation 2.33 today despite continuous IVF, medications reviewed. Will decrease Baclofen dose and wean down to DC. Follow renal indices -Encourage increase fluid intake Altered mental status -Conflicting reports. Per review of records EMS states his mental status is at baseline. -likely due to uremia vs alcohol dementia vs Delirium , rule out metabolic causes -CT head no acute abnormality, atrophy. Suspected small vessel ischemic demyelination. Stable encephalomalacia of the right temporal - Folate 18.1, TSH 1.670 -Patient continues to be confused. States that he lives here in the fifth floor -Urinalysis negative -Blood culture no growth in 5 days Gait Abnormalities - Generalized weakness most likely related AMS/RUSSELL/Generalized weakness - PT consult. He does have shuffling gait at baseline. -Plan for SNF placement for continuing rehab and assistance with ADLs -continue PT. PT reported patient refused physical therapy/out of bed or walking. Bipolar Disorder -Pt is currently taking Sertraline and Trazodone followed by Dr. Espitia outpatient -Psychiatry consultation appreciated: No indication to be admitted in the psychiatric unit. Discontinue Zoloft -Continue Trazodone. -Patient with irritable mood -Monitor mental status Chronic back pain -Add low dose Tramadol -PT to evaluate. -Add lidocaine patch, monitor response HTN Blood pressure elevated, still elevated -Continue Nifedipine -Increase hydralazine dose for for elevated blood pressure, with hold parameters -continue as needed clonidine -Monitor blood pressure, adjust medication as necessary History of Alcohol abuse: Unclear if he is still drinking -Monitor for signs of withdrawal. -Counseled on alcohol cessation DVT PPx, Heparin Discharge Planning: Plan to discharge to [facility]/reh/[facility] in 1-2 days when placement available _ (1) Altered mental status Qualifiers: Altered mental status type: Coma depth: Coma timing:
[2018-05-18] MEDS: traZODone 50 MG Tablet PO SCH (21:02)
[2018-05-19] MEDS: Heparin - SQ 10,000 UNITS/ML Vial SQ SCH (05:46)
[2018-05-19] MEDS: Sodium Chloride 0.45 % Inj 1,000 ML IV.CONT SCH ×2 (05:46→16:20)
[2018-05-19] MEDS: hydrALAZINE 25 MG Tablet PO SCH ×2 (09:38→13:03)
[2018-05-19] MEDS: Baclofen 10 MG Tablet PO SCH ×2 (09:38→13:03)
[2018-05-19] MEDS: Lidocaine 5% Patch T-DERMAL SCH (09:38)
[2018-05-19] MEDS: Senna/Docusate Sodium 8.6/50 MG Tablet PO SCH (09:38)
--- NOTE | 2018-05-19 13:33 | P.DS ---
DS: Providers Date of admission: 05/10/18 17:06 Primary care physician: No Primary Care Physician Consults: 05/10/18 17:25 HUB Only Consult Order Routine Consulting Provider: [employer]urance 05/10/18 23:38 Consult to Psychiatry Routine Consulting Provider: Davion Rizo Reason for Consultation: Bipolar disorder. Please assist with meds. Notified:: Office Spoke with:: lyle Date Notified:: 05/11/18 Time Notified:: 00:16 Ordering Provider: SADA 05/15/18 11:29 HUB Only Consult Order Routine Consulting Provider: [employer]urance 05/15/18 13:27 HUB Only Consult Order Routine Consulting Provider: [facility],[place] Reason for Consultation: SNF Notified:: Office Spoke with:: RYLIE Date Notified:: 05/15/18 Time:: 13:28 05/15/18 13:34 HUB Only Consult Order Routine Consulting Provider: [facility],[place] Reason for Consultation: SNF Notified:: Office Spoke with:: EDITH Date Notified:: 05/15/18 Time:: 13:34 Brief History from admission: 62 Y/O male with a medical history significant for HTN, alcohol abuse, bipolar disorder sent from [facility] for altered mental status and inability to ambulate. The patient was seen here in the emergency room earlier for back pain and was discharged back to the [facility]. The staff at the [facility] reported that he seemed more confuse and is having more trouble walking. He can normally hold a simple conversation and able to walk with a shuffling gait. It was noted that his gait seems to be worse. On my evaluation, patient states he does not know why he was brought to the Hospital. He complains of same chronic back pain. No change in the characteristic of the pain. He answer yes or no to some questions, otherwise he could not contribute much to the history. DS: Diagnosis Discharge Diagnosis (1) Altered mental status: Status: Acute (2) Acute kidney injury: Status: Acute (3) Elevated CK: Status: Acute (4) Delirium due to another medical condition: Status: Acute DS: Summary This is a 62 Y/O male sent to the ED for the second time today for reported worsening confusion and inability to ambulate. Initial workup in the ED revealed no acute changes for head/pelvis/abdomen CT. Patient was admitted and treated for altered mental status/EtOH/generalized weakness and Acute on chronic renal failure. Likely prerenal from dehydration. He does have a history of alcoholism. Unclear if he is still drinking. Can also be adverse effects from NSAIDS. He has been taking Meloxicam. Avoid using NSAIDs at this time. Patient had Cont IVF for hydration, creatinine, persistent elevation, despite continuous IVF, medications reviewed. Decrease Baclofen dose and wean down to DC. Follow renal indices, Encourage increase fluid intake. She also had altered mental status, likely due to uremia vs alcohol dementia vs Delirium , rule out metabolic causes CT head no acute abnormality, atrophy. Suspected small vessel ischemic demyelination. Stable encephalomalacia of the right temporal. Folate 18.1, TSH 1.670. Urinalysis negative, Blood culture no growth in 5 days. Pt had History of Alcohol abuse: Unclear if he is still drinking, Counseled on alcohol cessation, monitored for alcohol withdrawal. Pt had hx of Bipolar Disorder and is currently taking Sertraline and Trazodone followed by Dr. Espitia outpatient. Psychiatry was consult ed, however, No indication to be admitted in the psychiatric unit. Discontinued Zoloft and Continue Trazodone. Pt also had Gait Abnormalities, Generalized weakness and Chronic back pain. Cervical spine x-ray showed. No acute fracture or prevertebral soft tissue swelling. Moderate bilateral foraminal narrowing at C3-4, C4-C5, C5-6, C6-7 and moderate right neuroforaminal narrowing at C2-3. Mild spinal stenosis at C3-4. Humerus and shoulder x ray showed right humerus is intact.Intact right shoulder. Mild to moderate degenerative changes. PT consulted for evaluation and treatment. PT reported patient refused physical therapy/out of bed or walking. Pain managed with as needed pain medication and lidocaine patch patient feels improvement. Patient also had a history of HTN with Blood pressure elevated, persistently elevated. Likely related to renal failure. Continued Nifedipine and increased dose of hydralazine with hold parameters. Renal function and VS stable, Patient will be discharged to SNF /rehab for continued management and physical therapy. Patient is to follow-up with primary care and nephrology as an outpatient. Time Spent with Patient Total time spent providing and/or coordinating discharge services: Exam Narrative Exam Narrative: Narrative: GENERAL: Thin appearing, is elderly looking male, in no apparent distress SKIN: Warm and dry. Bilateral lower extremity with extremely dry skin HEAD: Atraumatic. Normocephalic. EYES: Pupils equal and round. No scleral icterus. No injection or drainage. ENT: No nasal bleeding or discharge. Mucous membranes pink and moist. NECK: Trachea midline. No JVD. CARDIOVASCULAR: Regular rate and rhythm. RESPIRATORY: No accessory muscle use. Clear to auscultation. Breath sounds equal bilaterally. GASTROINTESTINAL: Abdomen soft, non-tender, nondistended. MUSCULOSKELETAL: Extremities without clubbing, cyanosis, or edema. No obvious deformities. With muscle wasting. NEUROLOGICAL: Awake and alert and oriented x2. Patient very reserved and only answer a few questions, get irritated for more questions. Motor grossly within normal limits. Generalized weakness, moving all 4 extremities. Very minimal but normal speech. PSYCHIATRIC: Irritable mood and affect; insight and judgment unreliable Results Impressions ITS Impressions Head CT 05/10/18 13:34 CONCLUSION: 1. No acute abnormality seen. 2. Atrophy. 3. Suspected small vessel ischemic demyelination. 4. Stable encephalomalacia at the right temporal lobe. . Abdomen/Pelvis CT 05/10/18 13:50 CONCLUSION: 1. The cause of the patient's left flank pain is not seen. 2. Atherosclerotic change including borderline aneurysmal dilatation of the proximal abdominal aorta measuring 3 cm. Discharge Plan Discharge Disposition Patient Disposition: 03 Discharge to SNF Discharge Condition Condition: Stable Discharge Order Discharge Orders: Discharge Order (Routine); Ordered 05/19/18 Ordered By: Karen Mcknight Discharge Details Anticipated Discharge Date: 05/19/18 Physicians Team Primary Care Provider: Primary Care Sheryli,Vernell Attending Provider: Price De La Rosa Other Providers: [facility],Insurance ; Davion Rizo ; [facility],Agency ; [facility],Agency Rxs /Orders / Referrals /Forms Prescriptions: New sennosides-docusate sodium [Senna Plus] 8.6-50 mg Tablet 1 tab PO BID Qty: 60 RF: 0 hydralazine 25 mg Tablet 100 mg PO QID Qty: 120 RF: 0 tramadol [Ultram] 50 mg Tablet 50 mg PO Q6H PRN (Reason: Pain Scale 6 To 10) Qty: 12 RF: 0 lidocaine [Lidoderm] 5 % Adhesive Patch,Medicated 1 patch Transdermal DAILY Qty: 3 RF: 0 Continue nifedipine 60 mg Tablet Extended Release 60 mg PO DAILY RF: 0 trazodone 50 mg Tablet 50 mg PO HS RF: 0 baclofen 10 mg Tablet 10 mg PO TID RF: 0 Discontinued meloxicam 15 mg Tablet 15 mg PO DAILY RF: 0 hydralazine 25 mg Tablet 25 mg PO TID RF: 0 sertraline [Zoloft] 50 mg Tablet 50 mg PO DAILY RF: 0 Referrals: Primary Care Vernell Lester [Primary Care Provider] - See Instructions (Follow-up with primary care in 1 week Follow-up with psychiatry known to Dr. Espitia in 2 weeks Follow-up with nephrology) Discharge Instructions Additional Instructions: [employer] Prescription Drug Monitoring Database has been queried and verified prior to prescribing the controlled substance. Acute pain exception. This patient has normal, predicted, physiological, and time limited response to an adverse mechanical stimulus associated with surgery, trauma, or acute illness as described in my notes. There is a lack of alternative treatment options other than to include the prescribed narcotic treatment for this condition. Discussed status with sister Status ED Status: Left Department
[2018-05-20] MEDS: Heparin - SQ 10,000 UNITS/ML Vial SQ SCH (15:54)
== END 2018-05-19 17:39 ==
LOC: NEPE 10:37 → NEDA 17:06 → N05 18:08
PROVIDERS: ADMIT Hospitalist; ATTEND Hospitalist
DX: F10.20 Alcohol dependence, uncomplicated; N17.9 Acute kidney failure, unspecified; Z88.1 Allergy status to other antibiotic agents; R32 Unspecified urinary incontinence; G93.89 Other specified disorders of brain; Z79.899 Other long term (current) drug therapy; F31.30 Bipolar disorder, current episode depressed, mild or moderate severity, unspecified; E87.70 Fluid overload, unspecified; M48.02 Spinal stenosis, cervical region; R41.82 Altered mental status, unspecified; N18.9 Chronic kidney disease, unspecified; I12.9 Hypertensive chronic kidney disease with stage 1 through stage 4 chronic kidney disease, or unspecified chronic kidney disease; R26.2 Difficulty in walking, not elsewhere classified; Z88.5 Allergy status to narcotic agent; F05 Delirium due to known physiological condition; E86.0 Dehydration; G89.29 Other chronic pain; M54.5 Low back pain; F17.210 Nicotine dependence, cigarettes, uncomplicated

== ENCOUNTER 2018-07-24 16:13 | Inpatient (IN) ==
--- NOTE | 2018-07-24 17:33 | ED ---
HPI General Chief Complaint: Psychiatric Symptoms Stated Complaint: psych eval-VC EVAC Time Seen by Provider: 07/24/18 17:26 Source: patient and RN notes reviewed Mode of arrival: EMS Limitations: physical limitation History of Present Illness HPI Narrative: Patient is a 63-year-old male from [facility] with history of kidney failure, history of muscle weakness, low back pain, unsteadiness on feet, alcohol abuse, schizoaffective disorder, major depression , hypertension and anemia and insomnia, presents to the emergency room with suicidal ideation. Patient reports that he has thoughts of committing suicide as he has a lot of life stressors. Patient reports that he is plan would be to overdose on drugs. Patient reports that he has tried to overdose on drugs in the past. Related Data Home Medications Medication Instructions Recorded Confirmed nifedipine 60 mg PO DAILY 02/09/18 07/24/18 baclofen 10 mg PO TID 05/10/18 07/24/18 trazodone 50 mg PO HS 05/10/18 07/24/18 Previous Rx's Medication Instructions Recorded hydralazine 100 mg PO QID #120 tab 05/19/18 lidocaine [Lidoderm] 1 patch TRANSDERMAL DAILY #3 ea 05/19/18 sennosides-docusate sodium [Senna 1 tab PO BID #60 tab 05/19/18 Plus] tramadol [Ultram] 50 mg PO Q6H PRN #12 tab 05/19/18 Allergies Allergy/AdvReac Type Severity Reaction Status Date / Time cephalexin Allergy Severe SWELLING/RA Verified 04/09/18 17:18 SH codeine Allergy Severe Swelling Verified 04/09/18 17:18 Review of Systems ROS: all other systems reviewed are negative PMFSH History History Provided By: Medical Record Medical History Medical History Depression (Acute) Gait instability (Acute) HTN (hypertension) (Acute) Social History Social History Substance History: Past History Second Hand Smoke Exposure: Yes Smoking Status: Never smoker Tobacco Type: Cigarettes How Often Do You Have a Drink Containing Alcohol: Never Immunization History Tetanus Immunization: Unsure Tetanus Immunization Year if Known: 2016 Exam Narrative Exam Narrative: GENERAL: Mild distress SKIN: Focused skin assessment warm/dry. HEAD: Atraumatic. Normocephalic. EYES: Pupils equal and round. No scleral icterus. No injection or drainage. ENT: No nasal bleeding or discharge. Mucous membranes pink and moist. NECK: Trachea midline. No JVD. CARDIOVASCULAR: Regular rate and rhythm. No murmur appreciated. RESPIRATORY: No accessory muscle use. Clear to auscultation. Breath sounds equal bilaterally. GASTROINTESTINAL: Abdomen soft, non-tender, nondistended. Hepatic and splenic margins not palpable. MUSCULOSKELETAL: No obvious deformities. No clubbing. No cyanosis. No edema. NEUROLOGICAL: Awake and alert. No obvious cranial nerve deficits. PSYCHIATRIC: Flat affect, +SI -HI Course Initial Documented Vital Signs Temperature 98.7 F 07/24/18 16:37 Pulse Rate 100 H 07/24/18 16:37 Respiratory Rate 16 07/24/18 16:37 Blood Pressure 182/116 H 07/24/18 16:37 Pulse Oximetry 98 07/24/18 16:37 Last Documented Vital Signs Temperature 98.7 F 07/24/18 16:37 Pulse Rate 93 H 07/25/18 04:00 Respiratory Rate 18 07/25/18 04:00 Blood Pressure 162/75 H 07/25/18 04:00 Pulse Oximetry 97 07/25/18 04:00 Medical Decision Making MDM Narrative Medical decision making narrative: Psychiatric screening labs were ordered as well as UA. Lab work is unremarkable Patient's creatinine has improved from previous results Medical Screen Exam Complete: Yes Emergency Medical Condition: Yes Differential Diagnosis Differential Diagnosis: si, depression, uti, delirium Medical Records Medical records reviewed: Yes I reviewed the patient's medical records. Lab Data Result diagrams: 07/24/18 17:25 07/24/18 17:25 Lab Results 07/24/18 07/24/18 07/24/18 Range/Units 17:25 17:25 17:35 WBC 8.0 (4.0-11.0) th/mm3 RBC 4.66 (4.50-5.90) mil/mm3 Hgb 12.5 L (13.0-17.0) gm/dL Hct 36.0 L (39.0-51.0) % MCV 77.2 L (80.0-100.0) fL MCH 26.9 L (27.0-34.0) pg MCHC 34.8 (32.0-36.0) % RDW 12.4 (11.6-17.2) % Plt Count 252 (150-450) th/mm3 MPV 8.2 (7.0-11.0) fL Neut % (Auto) 71.1 H (16.0-70.0) % Lymph % (Auto) 19.7 (9.0-44.0) % [place] % (Auto) 7.7 (0.0-8.0) % Eos % (Auto) 0.7 (0.0-4.0) % Baso % (Auto) 0.8 (0.0-2.0) % Neut # (Auto) 5.7 (1.8-7.7) th/mm3 Lymph # (Auto) 1.6 (1.0-4.8) th/mm3 [place] # (Auto) 0.6 (0.0-0.9) th/mm3 Eos # (Auto) 0.1 (0.0-0.4) th/mm3 Baso # (Auto) 0.1 (0.0-0.2) th/mm3 WBC Differential . Differential Comment Auto diff final Sodium 133 L (136-145) meq/L Potassium 4.0 (3.5-5.1) meq/L Chloride 101 (98-107) meq/L Carbon Dioxide 22.7 (21.0-32.0) meq/L Anion Gap 9 (5-15) meq/L BUN 21 H (7-18) mg/dL Creatinine 1.98 H (0.60-1.30) mg/dL Estimated GFR 34 L (>89) mL/min Random Glucose 105 (74-106) mg/dL Calcium 8.8 (8.5-10.1) mg/dL Magnesium 1.9 (1.5-2.5) mg/dL Total Bilirubin 0.5 (0.2-1.0) mg/dL AST 32 (15-37) U/L ALT 36 (12-78) U/L Alkaline Phosphatase 58 (45-117) U/L Total Protein 7.7 (6.4-8.2) g/dL Albumin 3.3 L (3.4-5.0) g/dL TSH 1.280 (0.358-3.740) uIU/mL Urine Color (Yellw/Straw) Urine Clarity (Clear) Urine pH (5.0-8.5) Ur Specific [place] (1.002-1.035) Urine Protein (Neg-Trace) mg/dL Urine Glucose (UA) (Negative) mg/dL Urine Ketones (Negative) mg/dL Urine Occult Blood (Negative) Urine Nitrate (Negative) Urine Bilirubin (Negative) Urine Urobilinogen (Less than 2) mg/dL Ur Leukocyte Esterase (Negative) Granular Casts (None) /lpf Micro UA Comment Ur Microscopic Review Urine Culture Comments Salicylates Less than 1.7 L (2.8-20.0) mg/dL Urine Opiates Screen (Neg) Acetaminophen Less than 2.0 L (10.0-30.0) mcg/mL Ur Barbiturates Screen (Neg) Ur Amphetamines Screen (Neg) U Benzodiazepines Scrn (Neg) Urine Cocaine Screen (Neg) U Cannabinoids Screen (Neg) Serum Alcohol Less than 3 (0-5) mg/dL 07/24/18 07/24/18 Range/Units 17:35 17:35 WBC (4.0-11.0) th/mm3 RBC (4.50-5.90) mil/mm3 Hgb (13.0-17.0) gm/dL Hct (39.0-51.0) % MCV (80.0-100.0) fL MCH (27.0-34.0) pg MCHC (32.0-36.0) % RDW (11.6-17.2) % Plt Count (150-450) th/mm3 MPV (7.0-11.0) fL Neut % (Auto) (16.0-70.0) % Lymph % (Auto) (9.0-44.0) % [place] % (Auto) (0.0-8.0) % Eos % (Auto) (0.0-4.0) % Baso % (Auto) (0.0-2.0) % Neut # (Auto) (1.8-7.7) th/mm3 Lymph # (Auto) (1.0-4.8) th/mm3 [place] # (Auto) (0.0-0.9) th/mm3 Eos # (Auto) (0.0-0.4) th/mm3 Baso # (Auto) (0.0-0.2) th/mm3 WBC Differential Differential Comment Sodium (136-145) meq/L Potassium (3.5-5.1) meq/L Chloride (98-107) meq/L Carbon Dioxide (21.0-32.0) meq/L Anion Gap (5-15) meq/L BUN (7-18) mg/dL Creatinine (0.60-1.30) mg/dL Estimated GFR (>89) mL/min Random Glucose (74-106) mg/dL Calcium (8.5-10.1) mg/dL Magnesium (1.5-2.5) mg/dL Total Bilirubin (0.2-1.0) mg/dL AST (15-37) U/L ALT (12-78) U/L Alkaline Phosphatase (45-117) U/L Total Protein (6.4-8.2) g/dL Albumin (3.4-5.0) g/dL TSH (0.358-3.740) uIU/mL Urine Color Yellow (Yellw/Straw) Urine Clarity Clear (Clear) Urine pH 5.0 (5.0-8.5) Ur Specific [place] 1.011 (1.002-1.035) Urine Protein 100 H (Neg-Trace) mg/dL Urine Glucose (UA) Negative (Negative) mg/dL Urine Ketones Negative (Negative) mg/dL Urine Occult Blood Negative (Negative) Urine Nitrate Negative (Negative) Urine Bilirubin Negative (Negative) Urine Urobilinogen Less than 2 (Less than 2) mg/dL Ur Leukocyte Esterase Negative (Negative) Granular Casts 3 (None) /lpf Micro UA Comment Culture not ind Ur Microscopic Review Not Reportable Urine Culture Comments Culture not ind Salicylates (2.8-20.0) mg/dL Urine Opiates Screen Neg (Neg) Acetaminophen (10.0-30.0) mcg/mL Ur Barbiturates Screen Neg (Neg) Ur Amphetamines Screen Neg (Neg) U Benzodiazepines Scrn Neg (Neg) Urine Cocaine Screen Neg (Neg) U Cannabinoids Screen Neg (Neg) Serum Alcohol (0-5) mg/dL Discharge Plan Discharge Disposition Patient Disposition: Sign Out(ED Internal Use Only) Discharge Condition Condition: Stable Discharge Details Diagnosis: Suicidal ideation Physicians Team ED Provider: Sabina Biggs ED Midlevel Provider: Edge,Malaika L Primary Care Provider: UNKNOWN, Rxs /Orders / Referrals /Forms Prescriptions: No Action nifedipine 60 mg Tablet Extended Release 60 mg PO DAILY RF: 0 trazodone 50 mg Tablet 50 mg PO HS RF: 0 baclofen 10 mg Tablet 10 mg PO TID RF: 0 sennosides-docusate sodium [Senna Plus] 8.6-50 mg Tablet 1 tab PO BID Qty: 60 RF: 0 hydralazine 25 mg Tablet 100 mg PO QID Qty: 120 RF: 0 tramadol [Ultram] 50 mg Tablet 50 mg PO Q6H PRN (Reason: Pain Scale 6 To 10) Qty: 12 RF: 0 lidocaine [Lidoderm] 5 % Adhesive Patch,Medicated 1 patch Transdermal DAILY Qty: 3 RF: 0 Status ED Status: Medically Cleared
[2018-07-24 18:44] LABS: Albumin 3.3 g/dL (3.4-5.0); Anion Gap 9 meq/L (5-15); Aspartate Aminotransferase 32 U/L (15-37); Baso # (Auto) 0.1 th/mm3 (0.0-0.2); Baso % (Auto) 0.8 % (0.0-2.0); Blood Urea Nitrogen 21 mg/dL (7-18); Calcium 8.8 mg/dL (8.5-10.1); Carbon Dioxide 22.7 meq/L (21.0-32.0); Chloride 101 meq/L (98-107); Eos # (Auto) 0.1 th/mm3 (0.0-0.4); Eos % (Auto) 0.7 % (0.0-4.0); Glomerular Filtration Rate 34 mL/min (>89); Glucose,Random 105 mg/dL (74-106); Hemoglobin 12.5 gm/dL (13.0-17.0); Lymph # (Auto) 1.6 th/mm3 (1.0-4.8); Lymph % (Auto) 19.7 % (9.0-44.0); Magnesium 1.9 mg/dL (1.5-2.5); Mean Corpuscular HGB Conc 34.8 % (32.0-36.0); Mean Corpuscular Hemoglobin 26.9 pg (27.0-34.0); Mean Corpuscular Volume 77.2 fL (80.0-100.0); Mean Platelet Volume 8.2 fL (7.0-11.0); Mono # (Auto) 0.6 th/mm3 (0.0-0.9); Mono % (Auto) 7.7 % (0.0-8.0); Neut # (Auto) 5.7 th/mm3 (1.8-7.7); Neut % (Auto) 71.1 % (16.0-70.0); Platelet Count 252 th/mm3 (150-450); Red Blood Count 4.66 mil/mm3 (4.50-5.90); Red Cell Distribution Width 12.4 % (11.6-17.2); Sodium 133 meq/L (136-145)
[2018-07-24 18:48] LABS: Amphetamine Screen,Urine Neg (Neg); Barbiturate Screen,Urine Neg (Neg); Cannabinoid Screen,Urine Neg (Neg); Cocaine Screen,Urine Neg (Neg)
[2018-07-24 18:53] LABS: Alkaline Phosphatase 58 U/L (45-117)
[2018-07-24 19:01] LABS: Bilirubin,Urine Negative (Negative); Clarity,Urine Clear (Clear); Color,Urine Yellow (Yellw/Straw); Glucose,Urine (UA) Negative (Negative); Leukocyte Esterase,Urine Negative (Negative); Nitrite,Urine Negative (Negative); Specific Gravity,Urine 1.011 (1.002-1.035)
[2018-07-24 19:06] LABS: Opiate Screen,Urine Neg (Neg)
[2018-07-24 19:12] LABS: Alanine Aminotransferase 36 U/L (12-78); Total Protein 7.7 g/dL (6.4-8.2)
--- NOTE | 2018-07-25 13:35 | ED ---
HPI - Psych - General Time Seen by Psych Provider: 13:15 (07/25/2018) Source: patient, RN notes reviewed, old records reviewed Mode of arrival: EMS Limitations: physical limitation - History of Present Illness MD complaint: suicidal ideation, feels depressed Onset (ago): day(s) Duration: constant History of same: Yes Relieving factors: none Exacerbating factors: other (Multiple medical conditions) Context: not taking psychiatric medications Associated psychiatric symptoms: depression, suicidal ideation Associated symptoms: insomnia, other (Pain) Treatments prior to arrival: placed on mental health hold If self harm: admits thoughts of self harm - General Chief Complaint: Psychiatric Symptoms Stated Complaint: psych eval-VC EVAC Time Seen by Provider: 07/24/18 17:26 - History of Present Illness HPI Narrative: History of Present Illness HPI Narrative: Patient is a 63-year-old , male, , lives at [facility] with history of kidney failure, history of muscle weakness , low back pain, unsteadiness on feet, alcohol abuse, depression, hypertension and anemia, who presents to the emergency room with reports of suicidal ideation. Documentation from the [facility] facility indicate that the patient was seen by Dr. Pineda a psychologist at the facility who was concerned regarding the patient's continued verbalization of suicidal ideation. The patient was placed under an involuntary status by ED provider Dr. Biggs. EMR is reviewed. This patient has several previous visits to the ED for psychiatric issues with the first 1 documented in 2013. He was admitted to our inpatient psychiatric unit in April 2017 for treatment of depression with suicidal ideation. I find no documentation that the patient has had a previous suicidal attempt. Lab work is reviewed. Patient is seen. He is awake. He is engaging although he is irritable. He is aware he is in the hospital but states he has no idea why he is here. Not oriented to date or date and states that 1976. He does state that the president is [place]. He is able to spell the word world forward but not backwards. Patient does not appear to be responding to internal stimuli. He does admit to feeling depressed and states "I just want to end it all". When asked why he is feeling that way he says "why not. I hurt all over" . He states that he will take drugs to end it all and feel better. He then ends the evaluation by saying what ever and becomes quite irritated with further questioning. (Jessi Lemus) - Related Data Home Medications Medication Instructions Recorded Confirmed nifedipine 60 mg PO DAILY 02/09/18 07/24/18 baclofen 10 mg PO TID 05/10/18 07/24/18 trazodone 50 mg PO HS 05/10/18 07/24/18 Previous Rx's Medication Instructions Recorded hydralazine 100 mg PO QID #120 tab 05/19/18 lidocaine [Lidoderm] 1 patch TRANSDERMAL DAILY #3 ea 05/19/18 sennosides-docusate sodium [Senna 1 tab PO BID #60 tab 05/19/18 Plus] tramadol [Ultram] 50 mg PO Q6H PRN #12 tab 05/19/18 Allergies Allergy/AdvReac Type Severity Reaction Status Date / Time cephalexin Allergy Severe SWELLING/RA Verified 04/09/18 17:18 SH codeine Allergy Severe Swelling Verified 04/09/18 17:18 [facility] - History History Provided By: Medical Record - Medical History Medical History: Medical History (Last Reviewed 07/25/18 @ 06:34 by Malaika Edge) Depression Gait instability HTN (hypertension) - Tobacco History Second Hand Smoke Exposure: Yes Smoking Status: Never smoker Tobacco Type: Cigarettes - Alcohol History How Often Do You Have a Drink Containing Alcohol: Never - Substance Use History Substance History: Past History - Substance Use Type Alcohol Status: Early Remission Route Used: By Mouth Crack/Cocaine Status: Early Remission Route Used: Inhalation Reason for Use: Get High - Immunization History Tetanus Immunization: Unsure Tetanus Immunization Year if Known: 2016 Psychiatric History - Psychiatric History Psychiatric Treatment History: History of Psychiatric Treatment, History Substance Abuse Treatment, History of Hospitalization in a Psychiatric Facility History of Inpatient Treatment: Yes Firearms in Home: No - Psychiatric History Patient was last admitted to our inpatient psychiatric unit in 2017. He was treated for adjustment disorder with depression. He is currently being prescribed trazodone at his facility. (Jessi Lemus) - Family Psychiatric History None reported (Jessi Lemus) Physical Exam - General Limitations: physical limitation Mental Status Examination Consciousness: Alert Orientation: Person, Place Motor Activity: Other Speech: Unremarkable (In bed) Language: Adequate Fund of Knowledge: Inadequate Attention and Concentration: Adequate Memory: Impaired Mood: Sad, Irritable Affect: Appropriate Thought Process & Associations: Intact, Logical, Goal directed Thought Content: Appropriate Hallucination Type: None Delusion Type: None Suicidal Ideation: Yes Suicidal Plan: Yes Suicidal Intention: Yes Homicidal Ideation: No Homicidal Plan: No Homicidal Intention: No Insight: Poor Judgment: Poor Initial Documented Vital Signs Temperature 98.7 F 07/24/18 16:37 Pulse Rate 100 H 07/24/18 16:37 Respiratory Rate 16 07/24/18 16:37 Blood Pressure 182/116 H 07/24/18 16:37 Pulse Oximetry 98 07/24/18 16:37 Last Documented Vital Signs Temperature 98.7 F 07/24/18 16:37 Pulse Rate 93 H 07/25/18 04:00 Respiratory Rate 18 07/25/18 04:00 Blood Pressure 162/75 H 07/25/18 04:00 Pulse Oximetry 97 07/25/18 04:00 MDM - Psych - Diagnosis (1) Adjustment disorder with depressed mood Code(s): F43.21 - Adjustment disorder with depressed mood Status: Acute - Lab Data Result diagrams: 07/24/18 17:25 07/24/18 17:25 - [facility] Narrative Medical decision making narrative: The time of this evaluation the patient meets criteria for inpatient psychiatric treatment. He continues to endorse feeling depressed, hopeless, helpless, with continued suicidal ideation with plan to take drugs to end it all and feel better. Although the patient lacks the intent due to living in a secure facility he still is endorsing symptoms of depression and suicidality. Patient will be admitted to inpatient psychiatry for further evaluation, for stabilization, and for safety. (Jessi Lemus) - Lab Data Lab Results 07/24/18 07/24/18 07/24/18 Range/Units 17:25 17:25 17:35 WBC 8.0 (4.0-11.0) th/mm3 RBC 4.66 (4.50-5.90) mil/mm3 Hgb 12.5 L (13.0-17.0) gm/dL Hct 36.0 L (39.0-51.0) % MCV 77.2 L (80.0-100.0) fL MCH 26.9 L (27.0-34.0) pg MCHC 34.8 (32.0-36.0) % RDW 12.4 (11.6-17.2) % Plt Count 252 (150-450) th/mm3 MPV 8.2 (7.0-11.0) fL Neut % (Auto) 71.1 H (16.0-70.0) % Lymph % (Auto) 19.7 (9.0-44.0) % Logan % (Auto) 7.7 (0.0-8.0) % Eos % (Auto) 0.7 (0.0-4.0) % Baso % (Auto) 0.8 (0.0-2.0) % Neut # (Auto) 5.7 (1.8-7.7) th/mm3 Lymph # (Auto) 1.6 (1.0-4.8) th/mm3 Logan # (Auto) 0.6 (0.0-0.9) th/mm3 Eos # (Auto) 0.1 (0.0-0.4) th/mm3 Baso # (Auto) 0.1 (0.0-0.2) th/mm3 WBC Differential . Differential Comment Auto diff final Sodium 133 L (136-145) meq/L Potassium 4.0 (3.5-5.1) meq/L Chloride 101 (98-107) meq/L Carbon Dioxide 22.7 (21.0-32.0) meq/L Anion Gap 9 (5-15) meq/L BUN 21 H (7-18) mg/dL Creatinine 1.98 H (0.60-1.30) mg/dL Estimated GFR 34 L (>89) mL/min Random Glucose 105 (74-106) mg/dL Calcium 8.8 (8.5-10.1) mg/dL Magnesium 1.9 (1.5-2.5) mg/dL Total Bilirubin 0.5 (0.2-1.0) mg/dL AST 32 (15-37) U/L ALT 36 (12-78) U/L Alkaline Phosphatase 58 (45-117) U/L Total Protein 7.7 (6.4-8.2) g/dL Albumin 3.3 L (3.4-5.0) g/dL TSH 1.280 (0.358-3.740) uIU/mL Urine Color (Yellw/Straw) Urine Clarity (Clear) Urine pH (5.0-8.5) Ur Specific [place] (1.002-1.035) Urine Protein (Neg-Trace) mg/dL Urine Glucose (UA) (Negative) mg/dL Urine Ketones (Negative) mg/dL Urine Occult Blood (Negative) Urine Nitrate (Negative) Urine Bilirubin (Negative) Urine Urobilinogen (Less than 2) mg/dL Ur Leukocyte Esterase (Negative) Granular Casts (None) /lpf Micro UA Comment Ur Microscopic Review Urine Culture Comments Salicylates Less than 1.7 L (2.8-20.0) mg/dL Urine Opiates Screen (Neg) Acetaminophen Less than 2.0 L (10.0-30.0) mcg/mL Ur Barbiturates Screen (Neg) Ur Amphetamines Screen (Neg) U Benzodiazepines Scrn (Neg) Urine Cocaine Screen (Neg) U Cannabinoids Screen (Neg) Serum Alcohol Less than 3 (0-5) mg/dL 07/24/18 07/24/18 Range/Units 17:35 17:35 WBC (4.0-11.0) th/mm3 RBC (4.50-5.90) mil/mm3 Hgb (13.0-17.0) gm/dL Hct (39.0-51.0) % MCV (80.0-100.0) fL MCH (27.0-34.0) pg MCHC (32.0-36.0) % RDW (11.6-17.2) % Plt Count (150-450) th/mm3 MPV (7.0-11.0) fL Neut % (Auto) (16.0-70.0) % Lymph % (Auto) (9.0-44.0) % Logan % (Auto) (0.0-8.0) % Eos % (Auto) (0.0-4.0) % Baso % (Auto) (0.0-2.0) % Neut # (Auto) (1.8-7.7) th/mm3 Lymph # (Auto) (1.0-4.8) th/mm3 Logan # (Auto) (0.0-0.9) th/mm3 Eos # (Auto) (0.0-0.4) th/mm3 Baso # (Auto) (0.0-0.2) th/mm3 WBC Differential Differential Comment Sodium (136-145) meq/L Potassium (3.5-5.1) meq/L Chloride (98-107) meq/L Carbon Dioxide (21.0-32.0) meq/L Anion Gap (5-15) meq/L BUN (7-18) mg/dL Creatinine (0.60-1.30) mg/dL Estimated GFR (>89) mL/min Random Glucose (74-106) mg/dL Calcium (8.5-10.1) mg/dL Magnesium (1.5-2.5) mg/dL Total Bilirubin (0.2-1.0) mg/dL AST (15-37) U/L ALT (12-78) U/L Alkaline Phosphatase (45-117) U/L Total Protein (6.4-8.2) g/dL Albumin (3.4-5.0) g/dL TSH (0.358-3.740) uIU/mL Urine Color Yellow (Yellw/Straw) Urine Clarity Clear (Clear) Urine pH 5.0 (5.0-8.5) Ur Specific [place] 1.011 (1.002-1.035) Urine Protein 100 H (Neg-Trace) mg/dL Urine Glucose (UA) Negative (Negative) mg/dL Urine Ketones Negative (Negative) mg/dL Urine Occult Blood Negative (Negative) Urine Nitrate Negative (Negative) Urine Bilirubin Negative (Negative) Urine Urobilinogen Less than 2 (Less than 2) mg/dL Ur Leukocyte Esterase Negative (Negative) Granular Casts 3 (None) /lpf Micro UA Comment Culture not ind Ur Microscopic Review Not Reportable Urine Culture Comments Culture not ind Salicylates (2.8-20.0) mg/dL Urine Opiates Screen Neg (Neg) Acetaminophen (10.0-30.0) mcg/mL Ur Barbiturates Screen Neg (Neg) Ur Amphetamines Screen Neg (Neg) U Benzodiazepines Scrn Neg (Neg) Urine Cocaine Screen Neg (Neg) U Cannabinoids Screen Neg (Neg) Serum Alcohol (0-5) mg/dL
[2018-07-25] MEDS ORDERED: Aluminum/Magnesium/Simethacone Susp 30 ML UDC PO PRN (13:44)
[2018-07-25] MEDS: Baclofen 10 MG Tablet PO SCH (17:37)
[2018-07-25] MEDS: hydrALAZINE 25 MG Tablet PO SCH ×2 (17:37→22:09)
[2018-07-25] MEDS: traZODone 50 MG Tablet PO SCH (20:57)
[2018-07-25] MEDS ORDERED: Acetaminophen 325 MG Tablet PO PRN (22:49)
[2018-07-26] MEDS: Baclofen 10 MG Tablet PO SCH ×3 (08:40→17:41)
[2018-07-26] MEDS: Lidocaine 5% Patch T-DERMAL SCH (08:40)
[2018-07-26] MEDS: hydrALAZINE 25 MG Tablet PO SCH ×2 (08:40→18:33)
[2018-07-26 10:10] LABS: Calcium 8.9 mg/dL (8.5-10.1); Carbon Dioxide 29.1 meq/L (21.0-32.0); Potassium 3.3 meq/L (3.5-5.1)
[2018-07-26 10:14] LABS: Chol/HDL Ratio 2.59 Ratio; HDL Cholesterol 52.7 mg/dL (40.0-60.0)
--- NOTE | 2018-07-26 10:26 | P.HPPSY ---
Provisional Diagnosis Admission Date: July 25, 2018 13:44 Competence Certification of Person's Competence To Provide Express and Informed Consent I have personally examined Reggie Gottlieb, a person being served at [facility] on, July 26, 2018 1024. Express and informed consent means consent voluntarily given in writing, by a competent person, after sufficient explanation and disclosure of the subject matter involved to enable the person to make a knowing and willful decision without any element of force, fraud, deceit, duress, or other form of constraint or coercion. This person is 18 years of age or older, is not now known to be incompetent to consent to treatment with a guardian advocate, and does not have a health care surrogate or proxy currently making medical treatment decisions. I have found this person to be one of the following: [] Competent to provide express and informed consent, as defined above, for voluntary admission to this facility and is competent to provide express and informed consent for treatment. He/she has the consistent capacity to make well reasoned, willful, and knowing decisions concerning his or her medical or mental health treatment. The person fully and consistently understands the purpose of the admission for examination/placement and is fully capable of personally exercising all rights assured [place] [X] Incompetent to provide express and informed consent to voluntary admission, and this is incompetent to provide express and informed consent to treatment. The person must be transferred to involuntary status and a petition for a guardian advocate filed with the Circuit Court. [] Refusing to provide express and informed consent to voluntary admission but is competent to provide express and informed consent for treatment. The person must be discharged or transferred to involuntary status. Form shall be completed within 24 hours of a person's arrival at the receiving facility and filed in the clinical record of each person: 1. Admitted on a voluntary basis 2. Permitted to provide express and informed consent to his/her own treatment 3. Allowed to transfer from involuntary to voluntary status 4. Prior to permitting a person to consent to his or her own treatment after having been previously found incompetent to consent to treatment. History of Present Illness Capacity: Lacks capacity Chief Complaint: "I don't know why I'm here!!" History of Present Illness: Pt seen and discussed with nursing staff. Chart reviewed. Pt is a 63YOWM with a hx of alcohol use disorder and depression and medical hx of hypertension, anemia , kidney failure, chronic back pain, muscle weakness requiring use of walker. He was admitted from [facility] where he is a residence due to reports of suicidal ideation. He reports that he is depressed and endorses suicidal ideation. He denies plan with MD but told ED MD he planned to overdose. He is easily agitated and shakes walker at MD numerous times. He is oriented only to self and becomes angry with attempts at formal memory testing. He is uncooperative with interview and interview is cut short due to pt's escalating agitation. RN states that pt has been oriented only to self which is consistent with ED report and MD exam. He has a hx of psychiatric admission in 2017 at [facility] for depression with suicidal ideations and has had numerous ED visits for psychiatric illness since 2014. From available records, it seems that pt was only psychiatric medication at [facility] was trazodone 50mg po QHS. Pt is a poor historian. He does report having a sister names Annmarie who is his next of kin. Face sheet states sister's name is Trinidad. - Inpatient Certification I certify that the inpatient services were ordered in accordance with Medicare regulations governing the order. This includes certification that hospital inpatient services are reasonable and necessary and in the case of services not specified as inpatient-only under 42 CFR 419.22(n), that they are appropriately provided as inpatient services in accordance to with the 2-midnight benchmark under 43 CFR 412.3(e) I certify that inpatient psychiatric hospital services are medically necessary. Evaluation and treatment and/or diagnostic testing are expected to improve the patient's condition. The patient needs on a daily basis, active treatment furnished directly by or requiring the supervision of inpatient psychiatric facility personnel. Estimated Total Length of Stay (Days): 5 Plans for Post Hospital Care: SNF Review of Systems Psychiatric: Reports behavioral changes, Reports depression, Reports irritability, Reports memory loss PMFSH - History History Provided By: Patient, Medical Record - Medical History Medical History: Medical History (Last Reviewed 07/26/18 @ 11:38 by Suzanne Lay MD) Depression Gait instability HTN (hypertension) - Family History Family History: Family History (Last Updated 07/26/18 @ 11:39 by Suzanne Lay MD) Other Family history unobtainable due to patient's condition - Social History I have reviewed the patient's Social History: Yes - Tobacco History Second Hand Smoke Exposure: Yes Tobacco Use In Past 30 Days: No Smoking Status: Former smoker Tobacco Type: Cigarettes - Alcohol History How Often Do You Have a Drink Containing Alcohol: Never - Substance Use History Substance History: Past History - Substance Use Type Alcohol Status: Early Remission Route Used: By Mouth Reason for Use: Feels Good Crack/Cocaine Status: Early Remission Route Used: Inhalation Reason for Use: Get High - Immunization History Tetanus Immunization: Unsure Tetanus Immunization Year if Known: 2015 Hx Influenza Vaccine This Season: Unable to Assess Quality Measures - Psychiatric History Psychological trauma history: unable to obtain due to pt's agitation Violence risk to others in the last 6 months: unable to obtain due to pt's condition Violence risk to self in the last 6 months: pt endorses suicidal ideation - Patient Strengths Patient's strengths (minimum of 2): verbal, access to care Medications and Allergies Active Medications: Active Medications Acetaminophen (Tylenol) 650 mg PO Q4H PRN PRN Reason: PAIN 1-10 Last Admin: 07/25/18 22:55 Dose: 650 mg Al Hydrox/Mg Hydrox/Simethicone (Mag-Al Plus Susp Liq) 30 ml PO Q6H PRN PRN Reason: DYSPEPSIA Al Hydroxide/Mg Hydroxide (Milk Of Magnesia Liq) 30 ml PO Q12H PRN PRN Reason: Mild Constipation Baclofen (Lioresal) 10 mg PO TID [facility] Last Admin: 07/26/18 08:40 Dose: 10 mg Hydralazine HCl (Apresoline) 100 mg PO QID [facility] Last Admin: 07/26/18 08:40 Dose: 100 mg Lidocaine HCl (Lidoderm 5% Patch.12 Hr) 1 patch T-DERMAL DAILY [facility] Last Admin: 07/26/18 08:40 Dose: 1 patch Nifedipine (Procardia Xl) 60 mg PO DAILY [facility] Last Admin: 07/26/18 08:40 Dose: 60 mg Sennosides (Senokot) 17.2 mg PO Q12H PRN PRN Reason: Moderate Constipation Trazodone HCl (Desyrel) 50 mg PO HS [facility] Last Admin: 07/25/18 20:57 Dose: Not Given Allergies Allergy/AdvReac Type Severity Reaction Status Date / Time cephalexin Allergy Severe SWELLING/RA Verified 04/09/18 17:18 SH codeine Allergy Severe Swelling Verified 04/09/18 17:18 Home Medications Medication Instructions Recorded Confirmed Type nifedipine 60 mg PO DAILY 02/09/18 07/24/18 History baclofen 10 mg PO TID 05/10/18 07/24/18 History trazodone 50 mg PO HS 05/10/18 07/24/18 History Results - Labs CBC & Chem 7: 07/24/18 17:25 07/26/18 09:21 Labs: Laboratory Results - last 24 hr 07/26/18 09:21 Sodium 139 Potassium 3.3 L Chloride 101 Carbon Dioxide 29.1 Anion Gap 9 BUN 21 H Creatinine 1.75 H Estimated GFR 39 L Random Glucose 99 Calcium 8.9 Triglycerides 131 Cholesterol 137 LDL Cholesterol, Calc 58 HDL Cholesterol 52.7 Cholesterol/HDL Ratio 2.59 Exam Vital signs: Vital Signs 07/25/18 16:16 07/25/18 17:31 07/26/18 06:00 Temperature 98.6 F 98.8 F Pulse Rate 87 104 H 80 Respiratory Rate 18 20 18 Blood Pressure 178/86 H 156/94 H 167/96 H Pulse Oximetry 97 97 Intake & Output 07/25/18 07/26/18 07/26/18 18:59 06:59 18:59 Intake Total 720 / 720 Balance 720 / 720 Weight 65.771 kg Intake: Oral 720 / 720 Other: Date of Last Bowel Movement 07/25/18 07/25/18 Weight On Admission 65.7 kg Mental Status Examination Consciousness: Alert Orientation: Person Motor Activity: Other (ambulates with wheelchair) Speech: Unremarkable Language: Adequate Fund of Knowledge: Inadequate Attention and Concentration: Easily distracted Memory: Impaired Mood: Angry, Sad, Irritable Affect: Irritable Thought Process & Associations: Other (concrete) Thought Content: Other (anxious ruminations) Hallucination Type: None Delusion Type: None Suicidal Ideation: Yes Suicidal Plan: Yes Suicidal Intention: Yes Homicidal Ideation: No Homicidal Plan: No Homicidal Intention: No Insight: Poor Judgment: Poor Assessment and Plan - Assessment (1) Major depression, recurrent Code(s): F33.9 - Major depressive disorder, recurrent, unspecified Status: Acute (2) 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 Attempted to reach family for collateral. Will request 2nd opinion, HCS and GA. Pt would benefit from antidepressant once consent obtained. Justification for Continued Inpatient Stay: impairments in safety
--- NOTE | 2018-07-26 13:26 | ECG ---
Date Performed: 07/26/2018 Time Performed: 10:33:55 PTAGE: 63 years EKG: Sinus rhythm WITH OCCASIONAL SUPRAVENTRICULAR PREMATURE COMPLEXES VOLTAGE CRITERIA FOR LVH ABNORMAL ECG PREVIOUS TRACING : 05/10/2018 14.27 Since the previous tracing, no significant change noted DOCTOR: Jacoby Malone Interpretating Date/Time 07/26/2018 13:25:47
[2018-07-26 13:38] LABS: Hemoglobin A1c 5.4 % (4.3-6.0)
--- NOTE | 2018-07-26 14:25 | P.CONIM ---
History of Present Illness Service: [facility] Consult date: 07/26/18 Requesting Physician: Suzanne Lay Reason for Consult: Management of Hypertension Primary Care Provider: UNKNOWN Chief Complaint: back pain History of Present Illness: 63-year-old male with history of HTN, CKD, chronic anemia, chronic back pain, dementia, depression, admitted to medical psychiatric unit from [facility] for reports of suicidal ideations. Hospitalist consulted for medical management of hypertension. The patient is seen awake, alert, sitting upright in bed. His only medical complaint is chronic low back pain. He is unable to further describe his pain and states "it just hurts". He denies any recent injury or fall. He states he is on oxycodone 10 mg 3 times a day for his pain, but is unable to tell me who prescribes this. Upon review of E -Forcse, patient has only been prescribed Tramadol 50mg over the past few months. Otherwise, the patient denies any other medical complaints including no headache, lightheadedness, dizziness, chest pain, palpitations, shortness of breath, or abdominal complaints. He is unable to tell me what medications he takes, specifically for his high blood pressure, therefore obtained from EMR. Review of Systems Review of Systems: all other systems reviewed are negative [facility] Medical History Medical History CKD (chronic kidney disease) (Acute) Chronic anemia (Acute) Chronic back pain (Acute) Depression (Acute) Gait instability (Acute) HTN (hypertension) (Acute) Surgical History Surgical History History of hip replacement (Acute) Family History Family History Father No problems noted. Other Family history unobtainable due to patient's condition Social History Social History Substance History: Past History Second Hand Smoke Exposure: Yes Smoking Status: Former smoker Tobacco Type: Cigarettes How Often Do You Have a Drink Containing Alcohol: Never Substance Abuse Detail Alcohol: Substance Use Status: Early Remission Route Used Substance Abuse: By Mouth Reason for Use: Feels Good Crack/Cocaine: Substance Use Status: Early Remission Route Used Substance Abuse: Inhalation Reason for Use: Get High Immunization History Tetanus Immunization: Unsure Tetanus Immunization Year if Known: 2015 Hx Influenza Vaccine This Season: Unable to Assess Medications and Allergies Allergies Allergy/AdvReac Type Severity Reaction Status Date / Time cephalexin Allergy Severe SWELLING/RA Verified 04/09/18 17:18 SH codeine Allergy Severe Swelling Verified 04/09/18 17:18 Home Medications Medication Instructions Recorded Confirmed Type nifedipine 60 mg PO DAILY 02/09/18 07/24/18 History baclofen 10 mg PO TID 05/10/18 07/24/18 History trazodone 50 mg PO HS 05/10/18 07/24/18 History Active Medications: Active Medications Acetaminophen (Tylenol) 650 mg PO Q4H PRN PRN Reason: PAIN 1-10 Last Admin: 07/25/18 22:55 Dose: 650 mg Al Hydrox/Mg Hydrox/Simethicone (Mag-Al Plus Susp Liq) 30 ml PO Q6H PRN PRN Reason: DYSPEPSIA Al Hydroxide/Mg Hydroxide (Milk Of Magnesia Liq) 30 ml PO Q12H PRN PRN Reason: Mild Constipation Baclofen (Lioresal) 10 mg PO TID [facility] Last Admin: 07/26/18 08:40 Dose: 10 mg Hydralazine HCl (Apresoline) 100 mg PO QID [facility] Last Admin: 07/26/18 08:40 Dose: 100 mg Lidocaine HCl (Lidoderm 5% Patch.12 Hr) 1 patch T-DERMAL DAILY [facility] Last Admin: 07/26/18 08:40 Dose: 1 patch Nifedipine (Procardia Xl) 60 mg PO DAILY [facility] Last Admin: 07/26/18 08:40 Dose: 60 mg Sennosides (Senokot) 17.2 mg PO Q12H PRN PRN Reason: Moderate Constipation Trazodone HCl (Desyrel) 50 mg PO [facility] Last Admin: 07/25/18 20:57 Dose: Not Given Physical Exam Vital signs: Vital Signs 07/25/18 16:16 07/25/18 17:31 07/26/18 06:00 Temperature 98.6 F 98.8 F Pulse Rate 87 104 H 80 Respiratory Rate 18 20 18 Blood Pressure 178/86 H 156/94 H 167/96 H Pulse Oximetry 97 97 Intake & Output 07/25/18 07/26/18 07/26/18 18:59 06:59 18:59 Intake Total 720 / 720 Balance 720 / 720 Weight 65.771 kg Intake: Oral 720 / 720 Other: Date of Last Bowel Movement 07/25/18 07/25/18 Weight On Admission 65.7 kg Narrative: GENERAL: Thin male patient in NAD. SKIN: Warm and dry. No rash. HEENT: Normocephalic. Atraumatic. Pupils equal and round. Mucous membranes pink and moist. NECK: Supple. Trachea midline. CARDIOVASCULAR: Regular rate and rhythm. No murmur appreciated. RESPIRATORY: No accessory muscle use. Clear to auscultation. Breath sounds equal bilaterally. GASTROINTESTINAL: Abdomen soft, non-tender, nondistended. Normoactive bowel sounds x4. MUSCULOSKELETAL: No obvious deformities. Extremities without clubbing, cyanosis , or edema. NEUROLOGICAL: Awake and alert. No obvious cranial nerve deficits. Moving all extremities spontaneously. Normal speech. 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 Hospitalist consulted for medical management of hypertension. Depression with suicidal ideations: Acute, sent from [facility] for reports of suicidal ideations -Pain management per psychiatry Hypertension: Uncontrolled, BP currently 167/96 -Restart patient's home meds including hydralazine 100 mg qid, Procardia 60mg qd -Avoid JESSICA/diuretic with CKD -Monitor BP, adjust antihypertensives as needed CKD, stage III: Cr 1.75, previously 2.3 in May 2018. Stable. -Avoid nephrotoxins -Monitor BMP periodically Chronic Back Pain: patient reports many years of low back pain, no recent injury /fall -verified on E-Forc[facility] the patient has been recently prescribed Tramadol 50mg 3-4x/daily, will continue -continue patient's baclofen prn -Lidoderm patch ordered -Consult PT All other chronic medical conditions stable, continue home medications as appropriate. DVT Prophylaxis: ambulation _ (1) Major depression, recurrent Qualifiers: Active/Remission status: Major depression episode severity: Psychotic features:
[2018-07-26] MEDS: hydrALAZINE 50 MG Tablet PO SCH ×2 (17:41→21:14)
[2018-07-26] MEDS ORDERED: Baclofen 10 MG Tablet PO PRN (18:12)
[2018-07-26] MEDS ORDERED: Acetaminophen 325 MG Tablet PO PRN (18:15)
[2018-07-26] MEDS: traZODone 50 MG Tablet PO SCH (21:16)
[2018-07-27] MEDS: Lidocaine 5% Patch T-DERMAL SCH (08:58)
[2018-07-27] MEDS: hydrALAZINE 50 MG Tablet PO SCH ×4 (08:58→20:16)
--- NOTE | 2018-07-27 12:58 | P.PNIM ---
Subjective Interval history: Follow-up for hypertension, chronic back pain. Patient is seen in a wheelchair in the hallway. He reports continued constant low back pain, no acute worsening. Blood pressures have been uncontrolled, discussed increasing his Procardia dosing. Patient denies any headache, chest pain, shortness of breath, or abdominal complaints. Discussed with RN, no other acute concerns. Physical Exam Vital signs: Vital Signs 07/26/18 18:12 07/26/18 20:00 07/27/18 04:00 Temperature 98.2 F 99.3 F 99.6 F Pulse Rate 93 H 103 H 74 Respiratory Rate 16 16 16 Blood Pressure 118/62 142/87 H 155/94 H Pulse Oximetry 98 95 07/27/18 05:25 Temperature 99.6 F Pulse Rate 74 Respiratory Rate 16 Blood Pressure 154/94 H Pulse Oximetry Intake & Output 07/26/18 07/27/18 07/27/18 18:59 06:59 18:59 Intake Total 960 / 960 480 / 480 Balance 960 / 960 480 / 480 Intake: Oral 960 / 960 480 / 480 Other: # Voids 3 3 Date of Last Bowel Movement 07/25/18 Narrative: GENERAL: Thin male patient in [facility]. SKIN: Warm and dry. No rash. HEENT: Normocephalic. Atraumatic. Pupils equal and round. Mucous membranes pink and moist. CARDIOVASCULAR: Regular rate and rhythm. No murmur appreciated. RESPIRATORY: No accessory muscle use. Clear to auscultation. Breath sounds equal bilaterally. GASTROINTESTINAL: Abdomen soft, non-tender, nondistended. Normoactive bowel sounds x4. MUSCULOSKELETAL: No obvious deformities. Extremities without clubbing, cyanosis , or edema. NEUROLOGICAL: Awake and alert. No obvious cranial nerve deficits. Moving all extremities spontaneously. Normal speech. 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 Hospitalist consulted for medical management of hypertension. Depression with suicidal ideations: Acute, sent from [facility] for reports of suicidal ideations -Pain management per psychiatry Hypertension: Uncontrolled, BP currently 167/96 -Restart patient's home meds including hydralazine 100 mg qid, Procardia 60mg qd -Avoid JESSICA/diuretic with CKD -Monitor BP, adjust antihypertensives as needed -07/27 BP still uncontrolled, increased patient's Procardia XL to 90mg daily CKD, stage III: Cr 1.75, previously 2.3 in May 2018. Stable. -Avoid nephrotoxins -Monitor BMP periodically Chronic Back Pain: patient reports many years of low back pain, no recent injury /fall -verified on E-Forc[facility] the patient has been recently prescribed Tramadol 50mg 3-4x/daily, will continue -continue patient's baclofen prn -Lidoderm patch ordered -Consult PT, recommends rehab All other chronic medical conditions stable, continue home medications as appropriate. DVT Prophylaxis: ambulation Attending Attestation patient was seen today. looks comfortable. BP trend noted. continue current BP regimen. rest of assessment and plan as noted above. Progress Note: Quality VTE Deep Vein Thrombosis/Pulmonary Embolism Present on Admission: No _ (1) Major depression, recurrent Qualifiers: Active/Remission status: Major depression episode severity: Psychotic features:
--- NOTE | 2018-07-27 16:19 | P.CONPSY ---
Provisional Diagnosis Admission Date: July 25, 2018 13:44 Edison I.: Major depressive disorder, Dementia History of Present Illness Service: Psychiatry Consult date: 07/27/18 Requesting Physician: Suzanne Lay Reason for Consult: Second opinion Primary Care Provider: UNKNOWN Chief Complaint: back pain History of Present Illness: Patient is a 63-year-old man, domiciled at residential facility ( [facility]), with a past psychiatric history of depression and anxiety, one previous psychiatric admission (remote), no previous suicide attempts of interest behavior with a past medical history significant for dementia alcohol and crack use disorder, hypertension, CKD, chronic anemia, chronic back pain was admitted under [facility] [facility] due to suicide ideation which petition for involuntary hospitalization started and patient will be seen today at for second opinion. Patient was found lying in hospital bed noted B, cooperative. Patient noted to be alert and oriented only to place and person not to date. Patient states that he lives in a skilled nursing and that he lives in residential facility for a long time and states that he is homeless for the past year. Patient has been living in this facility for some time and therefore evidenced the patient is noted with cognitive impairment. Patient reports having no changes in sleep appetite energy concentration but did endorse feeling depressed for the past week along with suicide ideation for the past couple of days. He states that he has had thoughts of ending his life with "drugs" but did not further elaborate. Patient state he has been sober for about 1 year from any alcohol or crack cocaine use but later states that his last use was 6 months ago. He mentions that normally he drinks alcohol "a little bit" usually 3 drinks of liquor at a time last time being 6 months ago as well. Collateral information obtained by patient's sister, Trinidad Quick ([phone]) was contacted and stated that patient had been at [facility] and that patient had told the in-house psychiatrist that he is feeling depressed and wanted to kill himself. She mentions a prior to being transferred to that facility he was at [facility] for his medical admission. He states that patient issue is his drinking as well as history of multi-head trauma in the past. She mentions that prior to him going to [facility] he was at a homeless skilled nursing ([facility]) prior to that. She also states the patient has had significant decrease in ability to ambulate and weakness of lower extremities. Past psychiatric history: Previous psychiatric diagnosis of depression and anxiety, one previous psychiatric admissions, no previous suicide attempts of interest behavior. Review of Systems All other systems reviewed negative except as stated in HPI ON LICENSE OF [facility] - History History Provided By: Patient, Family Member, Medical Record - Medical History Medical History: Medical History (Last Updated 07/26/18 @ 17:33 by Nahomi Giordano) CKD (chronic kidney disease) Chronic anemia Chronic back pain Depression Gait instability HTN (hypertension) - Surgical History Surgical History: Surgical History (Last Updated 07/26/18 @ 17:34 by Nahomi Giordano) History of hip replacement - Family History Family History: Family History (Last Reviewed 07/26/18 @ 17:35 by Nahomi Giordano) Father No problems noted. Other Family history unobtainable due to patient's condition - Tobacco History Second Hand Smoke Exposure: Yes Tobacco Use In Past 30 Days: No Smoking Status: Former smoker Tobacco Type: Cigarettes - Alcohol History How Often Do You Have a Drink Containing Alcohol: Never - Substance Use History Substance History: Past History - Substance Use Type Alcohol Status: Early Remission Route Used: By Mouth Reason for Use: Feels Good Crack/Cocaine Status: Early Remission Route Used: Inhalation Reason for Use: Get High - Immunization History Tetanus Immunization: Unable to Assess Tetanus Immunization Year if Known: 2015 Hx Influenza Vaccine This Season: Unable to Assess Medications and Allergies Active Medications: Active Medications Acetaminophen (Tylenol) 650 mg PO Q4H PRN PRN Reason: headache/fever/pain1-4 Al Hydrox/Mg Hydrox/Simethicone (Mag-Al Plus Susp Liq) 30 ml PO Q6H PRN PRN Reason: DYSPEPSIA Al Hydroxide/Mg Hydroxide (Milk Of Magnesia Liq) 30 ml PO Q12H PRN PRN Reason: Mild Constipation Baclofen (Lioresal) 10 mg PO TID PRN PRN Reason: muscle spasms Hydralazine HCl (Apresoline) 100 mg PO QID [facility] Last Admin: 07/27/18 14:18 Dose: 100 mg Lidocaine HCl (Lidoderm 5% Patch.12 Hr) 1 patch T-DERMAL DAILY [facility] Last Admin: 07/27/18 08:58 Dose: 1 patch Nifedipine (Procardia Xl) 90 mg PO DAILY [facility] Sennosides (Senokot) 17.2 mg PO Q12H PRN PRN Reason: Moderate Constipation Tramadol HCl (Ultram) 50 mg PO Q8H PRN PRN Reason: pain scale 5 to 10 Trazodone HCl (Desyrel) 50 mg PO HS [facility] Last Admin: 07/26/18 21:16 Dose: 50 mg Allergies Allergy/AdvReac Type Severity Reaction Status Date / Time cephalexin Allergy Severe SWELLING/RA Verified 04/09/18 17:18 SH codeine Allergy Severe Swelling Verified 04/09/18 17:18 Home Medications Medication Instructions Recorded Confirmed Type nifedipine 60 mg PO DAILY 02/09/18 07/24/18 History baclofen 10 mg PO TID 05/10/18 07/24/18 History trazodone 50 mg PO HS 05/10/18 07/24/18 History Exam Vital signs: Vital Signs 07/26/18 18:12 07/26/18 20:00 07/27/18 04:00 Temperature 98.2 F 99.3 F 99.6 F Pulse Rate 93 H 103 H 74 Respiratory Rate 16 16 16 Blood Pressure 118/62 142/87 H 155/94 H Pulse Oximetry 98 95 07/27/18 05:25 Temperature 99.6 F Pulse Rate 74 Respiratory Rate 16 Blood Pressure 154/94 H Pulse Oximetry Intake & Output 07/26/18 07/27/18 07/27/18 18:59 06:59 18:59 Intake Total 960 / 960 480 / 480 480 / 480 Balance 960 / 960 480 / 480 480 / 480 Intake: Oral 960 / 960 480 / 480 480 / 480 Other: # Voids 3 3 Date of Last Bowel Movement 07/25/18 Narrative: Patient not noted to be in acute distress, no gross motor abnormalities, no signs of tremor or EPS, no psychomotor agitation or retardation. - Constitutional no acute distress, cooperative Mental Status Examination Appearance: Disheveled Consciousness: Alert Orientation: Person Motor Activity: Other (ambulates with wheelchair) Speech: Unremarkable Language: Adequate Fund of Knowledge: Inadequate Attention and Concentration: Easily distracted Memory: Impaired Mood: Angry, Sad Affect: Blunt Thought Process & Associations: Other (concrete) Thought Content: Other (anxious ruminations) Hallucination Type: None Delusion Type: None Suicidal Ideation: Yes (Denies but is unreliable to contract for safety at this time) Suicidal Plan: No Suicidal Intention: No Homicidal Ideation: No Homicidal Plan: No Homicidal Intention: No Insight: Poor Judgment: Poor Assessment and Plan - Assessment (1) Major depression, recurrent Code(s): F33.9 - Major depressive disorder, recurrent, unspecified Status: Acute (2) 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 Lay assessment and plan. I have completed second opinion for the petition for involuntary hospitalization. Consult appreciated. Patient continues to endorse depressive symptoms and currently continues to be at risk for self-harm if patient continues to require inpatient psychiatric stabilization for safety. Patient's sister will serve as healthcare surrogate and guardian advocate which patient will be started on sertraline 25 mg p.o. daily for depression with upward titration as needed. We will also request PT and OT consult. We will continue recommendations were by medical team. We will continue to monitor mood and behavior. Discharge planning in progress. Justification for Continued Inpatient Stay: At risk of further decompensation at lower level care.
[2018-07-27] MEDS ORDERED: Sertraline 50 MG Tablet PO ONE (17:00)
[2018-07-27] MEDS: traZODone 50 MG Tablet PO SCH (20:16)
[2018-07-28] MEDS: hydrALAZINE 50 MG Tablet PO SCH ×4 (09:51→20:48)
[2018-07-28] MEDS: Sertraline 50 MG Tablet PO SCH (09:51)
[2018-07-28] MEDS: Lidocaine 5% Patch T-DERMAL SCH (09:51)
--- NOTE | 2018-07-28 15:12 | P.PNPSY ---
Subjective Chief Complaint: "I don't know why I'm here!!" Remarks: Patient seen for follow up; chart reviewed. Discussion with nursing staff reported patient with less agitation, compliant with medication continues to be confused. Patient was found lying in hospital bed, cooperative. Patient states feeling "good" reporting sleeping well with good appetite, denies feeling depressed and having suicide ideations and denies any perceptual disturbances and states his mood is been "good". Patient continues to be noted to have degree of cognitive impairment due to noted confusion but likely with baseline confusion at this time. Review of Systems All other systems reviewed negative except as stated in HPI Mental Status Examination Appearance: Appropriate Consciousness: Alert Orientation: Person Motor Activity: Other (ambulates with wheelchair) Speech: Unremarkable Language: Adequate Fund of Knowledge: Inadequate Attention and Concentration: Easily distracted Memory: Impaired Mood: Other ("Good") Affect: Blunt Thought Process & Associations: Other (concrete) Thought Content: Preoccupations (With discharge) Hallucination Type: None Delusion Type: None Suicidal Ideation: Yes (Denies but is unreliable to contract for safety at this time) Suicidal Plan: No Suicidal Intention: No Homicidal Ideation: No Homicidal Plan: No Homicidal Intention: No Insight: Poor Judgment: Poor Assessment and Plan - Assessment (1) Major depression, recurrent Code(s): F33.9 - Major depressive disorder, recurrent, unspecified Status: Acute (2) 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 Patient denies any depressed mood and denies any suicide ideation at this time. We will continue to monitor mood and behavior. We will continue current treatment. Discharge planning in progress. Justification for Continued Inpatient Stay: At risk of further decompensation at lower level care.
--- NOTE | 2018-07-28 16:37 | P.PNIM ---
Subjective Interval history: Follow up for hypertension, chronic back pain. The patient denies any new medical complaints today. He reports continued low back pain, unchanged. Denies any headache, lightheadedness, dizziness. BP better controlled this morning. Physical Exam Vital signs: Vital Signs 07/27/18 16:54 07/28/18 06:49 Temperature 99.4 F 98.9 F Pulse Rate 88 76 Respiratory Rate 17 16 Blood Pressure 142/99 H 131/81 Pulse Oximetry 96 Intake & Output 07/27/18 07/28/18 07/28/18 18:59 06:59 18:59 Intake Total 1560 / 1560 840 / 840 240 / 240 Balance 1560 / 1560 840 / 840 240 / 240 Intake: Oral 1560 / 1560 840 / 840 240 / 240 Other: # Voids 2 1 Narrative: GENERAL: Thin male patient in NAD. SKIN: Warm and dry. No rash. HEENT: Normocephalic. Atraumatic. Pupils equal and round. Mucous membranes pink and moist. CARDIOVASCULAR: Regular rate and rhythm. No murmur appreciated. RESPIRATORY: No accessory muscle use. Clear to auscultation. Breath sounds equal bilaterally. GASTROINTESTINAL: Abdomen soft, non-tender, nondistended. Normoactive bowel sounds x4. MUSCULOSKELETAL: No obvious deformities. Extremities without clubbing, cyanosis , or edema. NEUROLOGICAL: Awake and alert. No obvious cranial nerve deficits. Moving all extremities spontaneously. Normal speech. 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 Hospitalist consulted for medical management of hypertension. Depression with suicidal ideations: Acute, sent from [facility] for reports of suicidal ideations -Pain management per psychiatry Hypertension: Uncontrolled, BP currently 167/96 -Restart patient's home meds including hydralazine 100 mg qid, Procardia 60mg qd -Avoid JESSICA/diuretic with CKD -Monitor BP, adjust antihypertensives as needed -07/27 BP still uncontrolled, increased patient's Procardia XL to 90mg daily -07/28 BP much better controlled overnight and this morning, stable CKD, stage III: Cr 1.75, previously 2.3 in May 2018. Stable. -Avoid nephrotoxins -Monitor BMP periodically Chronic Back Pain: patient reports many years of low back pain, no recent injury /fall -verified on E-Forcse the patient has been recently prescribed Tramadol 50mg 3-4x/daily, will continue -continue patient's baclofen prn -Lidoderm patch ordered -Consult PT, recommends rehab All other chronic medical conditions stable, continue home medications as appropriate. DVT Prophylaxis: ambulation Discharge Planning: The patient is medically stable, hospitalists will sign off. Please re-consult [facility] as needed or if any new issues arise. Thank you very much for this consultation. Progress Note: Quality VTE Deep Vein Thrombosis/Pulmonary Embolism Present on Admission: No _ (1) Major depression, recurrent Qualifiers: Active/Remission status: Major depression episode severity: Psychotic features:
[2018-07-28] MEDS: traZODone 50 MG Tablet PO SCH (20:49)
[2018-07-29] MEDS: Sertraline 50 MG Tablet PO SCH (09:44)
[2018-07-29] MEDS: hydrALAZINE 50 MG Tablet PO SCH ×4 (09:44→20:34)
[2018-07-29] MEDS: Lidocaine 5% Patch T-DERMAL SCH (09:45)
[2018-07-29 13:05] VITALS: RESP 18
--- NOTE | 2018-07-29 17:29 | P.PNPSY ---
Subjective Chief Complaint: "I don't know why I'm here!!" Remarks: Patient seen for follow-up, chart reviewed. Discussion with nursing staff reported that patient was not wanting to be in hospital continues with some confusion. Patient was found sitting in the room noted B, cooperative. With concrete responses stating he is feeling "good" reporting sleeping well good appetite, no problems bowel movement. Patient alert and oriented to person place and month only. Patient denies any depressed mood denies any suicide ideations homicidal ideations or auditory visual hallucination or delusions. Patient reports tolerating medications well Review of Systems All other systems reviewed negative except as stated in HPI Mental Status Examination Appearance: Appropriate Consciousness: Alert Orientation: Person Motor Activity: Other (ambulates with wheelchair) Speech: Unremarkable Language: Adequate Fund of Knowledge: Inadequate Attention and Concentration: Easily distracted Memory: Impaired Mood: Other ("Good") Affect: Blunt Thought Process & Associations: Other (concrete) Thought Content: Preoccupations (With discharge) Hallucination Type: None Delusion Type: None Suicidal Ideation: No Suicidal Plan: No Suicidal Intention: No Homicidal Ideation: No Homicidal Plan: No Homicidal Intention: No Insight: Fair Judgment: Impulsive (Fair) Assessment and Plan - Assessment (1) Major depression, recurrent Code(s): F33.9 - Major depressive disorder, recurrent, unspecified Status: Acute (2) 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 Facility planning to meet with patient tomorrow as patient close to discharge. Patient denying suicidal use at this time. Continue current treatment. Continue to monitor mood and behavior. Discharge planning in progress. Justification for Continued Inpatient Stay: At risk of further decompensation at lower level care.
[2018-07-29] MEDS: traZODone 50 MG Tablet PO SCH (20:34)
[2018-07-30] MEDS: Lidocaine 5% Patch T-DERMAL SCH (08:32)
[2018-07-30] MEDS: hydrALAZINE 50 MG Tablet PO SCH ×2 (08:34→12:36)
[2018-07-30] MEDS: Sertraline 50 MG Tablet PO SCH (08:34)
[2018-07-30 10:27] VITALS: BP 146/83; PULSE 83; TEMP 98.3; O2SAT 98
--- NOTE | 2018-07-30 11:52 | P.DSPSY ---
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 Chart reviewed. Pt is a 63YOWM with a hx of alcohol use disorder and depression and medical hx of hypertension, anemia , kidney failure, chronic back pain, muscle weakness requiring use of walker. He was admitted from [facility] where he is a residence due to reports of suicidal ideation. He reports that he is depressed and endorses suicidal ideation. He denies plan with MD but told ED MD he planned to overdose. He is easily agitated and shakes walker at MD numerous times. He is oriented only to self and becomes angry with attempts at formal memory testing. He is uncooperative with interview and interview is cut short due to pt's escalating agitation. RN states that pt has been oriented only to self which is consistent with ED report and MD exam. He has a hx of psychiatric admission in 2017 at [facility] for depression with suicidal ideations and has had numerous ED visits for psychiatric illness since 2014. From available records, it seems that pt was only psychiatric medication at [facility] was trazodone 50mg po QHS. Pt is a poor historian. He does report having a sister names Annmarie who is his next of kin. Face sheet states sister's name is Trinidad. Tobacco Use In Past 30 Days: No How Often Do You Have a Drink Containing Alcohol: Never Hospital Course: Patient is a 63-year-old man, domiciled at residential facility ( [facility]), with a past psychiatric history of depression and anxiety, one previous psychiatric admission (remote), no previous suicide attempts of interest behavior with a past medical history significant for dementia alcohol and crack use disorder, hypertension, CKD, chronic anemia, chronic back pain was admitted under [place] act due to suicide ideation which patient was admitted to the inpatient for further evaluation and management. Patient was admitted to a locked, inpatient psychiatric unit. Appropriate precautions were in place throughout patient's hospital stay. Patient was seen and examined on the unit by psychiatry. Psychotropic medications were adjusted. There was no evidence of any suicidality or homicidality on the inpatient unit. Patient's mood improved with the benefit of psychopharmacological treatment and had no behavioral disturbance since admission. Patient was noted to have reached stable mood, noted to participate and engage in treatment and interact with staff adequately. Patient noted to have baseline confusion secondary to dementia. Counselor has arranged discharge plan which patient will return back to [facility]. On the day of discharge: Patient seen and examined; chart reviewed. Case discussed with nurse and counselor. No behavioral issues overnight. On my examination today, the patient denies any suicidal homicidal ideation, intent or plan on direct questioning and contracts for safety. Patient denies any perceptional disturbances and no delusional material verbalized today. Patient denies any side effects from medications. No physical complaints. Suicide and violence risk assessment on day of discharge both suggest lower imminent risk, and the patient's level of function is adequate for plan level of outpatient care. Patient has maximized benefit from this inpatient psychiatric hospital stay and will be discharged with discharge plan as arranged by counselor. Patient advised to return to psychiatric emergency room for any concerning psychiatric symptoms. Patient agrees with plan. 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 Code(s): F02.81 - Dementia in other diseases classified elsewhere with behavioral disturbance Status: Acute Discharge Disposition: [facility] Facility - Discharge Instructions Discharge Diet: Heart Healthy Diet Activities You Can Perform: Weight Bearing As Tolerat - Discharge Time > 30 minutes Mental Status Examination Appearance: Appropriate Consciousness: Alert Orientation: Person Motor Activity: Other Speech: Unremarkable Language: Adequate Fund of Knowledge: Inadequate Attention and Concentration: Easily distracted Memory: Impaired Mood: Other ("Good") Affect: Blunt Thought Process & Associations: Other (concrete) Thought Content: Appropriate Hallucination Type: None Delusion Type: None Suicidal Ideation: No Suicidal Plan: No Suicidal Intention: No Homicidal Ideation: No Homicidal Plan: No Homicidal Intention: No Insight: Fair Judgment: Impulsive Discharge/Advance Care Plan - Results Vital Signs: Last Vital Signs Temp 98.3 F 07/30/18 08:00 Pulse 83 02/28/19 08:00 Resp 18 07/30/18 08:00 BP 146/83 H 07/30/18 08:00 Pulse Ox 98 07/30/18 08:00 Lab Results: Laboratory Results Hemoglobin A1c 5.4 % (4.3-6.0) 07/26/18 09:21 Triglycerides 131 mg/dL (42-150) 07/26/18 09:21 Cholesterol 137 mg/dL (120-200) 07/26/18 09:21 LDL Cholesterol, Calc 58 mg/dL (0-99) 07/26/18 09:21 HDL Cholesterol 52.7 mg/dL (40.0-60.0) 07/26/18 09:21 TSH 1.280 uIU/mL (0.358-3.740) 07/24/18 17:25 Urine Culture Comments Culture not ind 07/24/18 17:35 Summary of Procedures: none Pending Results: None - Medications Number of antipsychotic medications at discharge: 0 - Discharge Care Plan Goals to Promote Your Health: * To prevent worsening of your condition and complications * To maintain your health at the optimal level Directions to Meet Your Goals: Take your medications as prescribed Follow your dietary instruction Follow activity as directed Keep your appointments as scheduled Take your immunizations and boosters as scheduled If your symptoms worsen call your PCP, if no PCP go to Urgent Care Center or Emergency Room For 23/12 questions related to your inpatient stay or results of tests pending at discharge, please contact Dr. Boby Hill MD at Smoking is Dangerous to Your Health. Avoid second hand smoking
== END 2018-07-30 15:55 | DRG 885 ==
LOC: NEPB 16:13 → NEDA 07-25 13:44 → H4EA 07-25 16:15 → H250 07-28 12:48
PROVIDERS: ADMIT Student in an Organized Health Care Education/Training Program; ATTEND Student in an Organized Health Care Education/Training Program
DX: Z96.649 Presence of unspecified artificial hip joint; F02.81 Dementia in other diseases classified elsewhere, unspecified severity, with behavioral disturbance; Z87.891 Personal history of nicotine dependence; M54.5 Low back pain; R45.851 Suicidal ideations; G89.29 Other chronic pain; N18.3 Chronic kidney disease, stage 3 (moderate); I12.9 Hypertensive chronic kidney disease with stage 1 through stage 4 chronic kidney disease, or unspecified chronic kidney disease; F33.9 Major depressive disorder, recurrent, unspecified; M62.81 Muscle weakness (generalized); D64.9 Anemia, unspecified